=== PATIENT | male | born 1950 | race Caucasian/White ===

== ENCOUNTER → 2019-09-15 | Outpatient (REF) | LOC: M LAB LCGH 11:30 | PROVIDERS: ATTEND Physician Assistant | DX: L57.0 Actinic keratosis (principal) ==

== ENCOUNTER → 2021-02-26 | Outpatient (CLI) | payer BC ==
[~2021-02-26] MED LIST: ALBU1.25 NEB; ALLO10TA PO; AMLO1TAB37 PO; ATOR1TAB21 PO; CLEO300C2 PEG; ELIQ5TAB PO; FAMO20TA PO; FOLI400T13 PO; GUAI400T9 PEG; HUMA50IN3 SC; LEVE1INJ5 SC; MUCI600T31 PEG; OCUVCAP PO; OSTE1TAB2 PO; SOTA120T31 PO; TORS20TA2 PO
== END ==
LOC: M ONCR 14:43
PROVIDERS: ATTEND General Practice
DX: C32.1 Malignant neoplasm of supraglottis (principal)

== ENCOUNTER → 2021-02-26 | Outpatient (CLI) | payer BC, MEDICARE ==
[~2021-02-26] MED LIST changes: +ALBU83IN INH; +ALLO10TA GT; +AMLO1TAB24 GT; +ATOR1TAB21 GT; -ATOR1TAB21 PO; +ELIQ5TAB GT; -ELIQ5TAB PO; +FAMO20TA GT; -FAMO20TA PO; +FOLI1TAB11 GT; +FOLI1TAB11 PO; +HUMA100I5 SC; +NYST10OI TOP; +REPA1TAB6 PO; +SOTA120T31 GT; -SOTA120T31 PO; +TORS20TA2 GT; -TORS20TA2 PO
[2021-02-26 15:23] LABS: BASO # 0.1 10^3/uL (0.0-0.2); BASO % 0.7 % (0.0-1.0); EOS # 0.6 10^3/uL (0.0-0.5); EOS % 4.3 % (0.0-3.0); HEMATOCRIT 37.1 % (42.0-52.0); HEMOGLOBIN 12.1 g/dl (13.5-17.5); LYMPH # 1.3 10^3/uL (1.5-5.0); LYMPH % 9.3 % (24.0-44.0); MEAN CORPUSCULAR HEMOGLOBIN 33.9 pg (27.0-33.0); MEAN CORPUSCULAR HGB CONC 32.6 g/dl (32.0-36.5); MEAN CORPUSCULAR VOLUME 103.9 fl (80.0-96.0); MONO % 7.6 % (2.0-8.0); NEUTROPHILS # 10.5 10^3/uL (1.5-8.5); NEUTROPHILS % 77.3 % (36.0-66.0); PLATELET COUNT, AUTOMATED 326 10^3/uL (150-450); RED BLOOD COUNT 3.57 10^6/uL (4.30-6.10); WHITE BLOOD COUNT 13.6 10^3/uL (4.0-10.0)
[2021-02-26 16:15] LABS: ALBUMIN 3.4 GM/DL (3.2-5.2); BILIRUBIN,TOTAL 0.3 MG/DL (0.2-1.0); CREATININE FOR GFR 2.61 MG/DL (0.70-1.30); FREE T4 0.83 NG/DL (0.76-1.46); GLOMERULAR FILTRATION RATE 25.9 (>42); POTASSIUM SERUM 4.6 MEQ/L (3.5-5.1); THYROID STIMULATING HORMONE 4.45 uIU/ML (0.358-3.740); TOTAL PROTEIN 7.5 GM/DL (6.4-8.2)
== END ==
LOC: M ONCR 12:44
PROVIDERS: ATTEND General Practice
DX: C32.1 Malignant neoplasm of supraglottis (principal); E11.22 Type 2 diabetes mellitus with diabetic chronic kidney disease; E78.5 Hyperlipidemia, unspecified; I12.9 Hypertensive chronic kidney disease with stage 1 through stage 4 chronic kidney disease, or unspecified chronic kidney disease; M10.9 Gout, unspecified; N18.9 Chronic kidney disease, unspecified; Z79.4 Long term (current) use of insulin; Z79.899 Other long term (current) drug therapy; Z80.3 Family history of malignant neoplasm of breast; Z85.118 Personal history of other malignant neoplasm of bronchus and lung; Z87.891 Personal history of nicotine dependence; Z88.0 Allergy status to penicillin; Z88.2 Allergy status to sulfonamides; Z93.1 Gastrostomy status
CPT/HCPCS: 31575; 36415; 80053; 84439; 84443; 85025; 87070; 87077; 87186; 87205; G0463

== ENCOUNTER 2021-03-08 13:54 | Outpatient (RCR) | payer MEDICARE ==
--- NOTE | 2021-03-05 14:06 | RADENCPD ---
Date/Time of Encounter Date of Encounter: Mar 05, 2021 Time of Encounter: 14:05 Encounter Received finalized culture report positive for CRE. Will refer to ID for treatment recommendations. In the meantime he should continue clindamycin for the MSSA as prescribed for his tracheitis/bronchitis. ABDI ARENAS MD Mar 05, 2021 14:06
[~2021-03-08 13:54] MED LIST changes: -ALBU83IN INH; -AMLO1TAB24 GT; -FOLI1TAB11 GT; -FOLI1TAB11 PO; -HUMA100I5 SC; -NYST10OI TOP; -REPA1TAB6 PO
[2021-03-20] MEDS ORDERED: NYST10OI TOP (11:13)
[2021-03-20] MEDS ORDERED: LEVE1INJ5 SC (11:13)
[2021-03-20] MEDS ORDERED: HUMA100I5 SC (11:19)
[2021-03-20] MEDS ORDERED: REPA1TAB6 PO (14:14)
[2021-03-20] MEDS ORDERED: AMLO1TAB24 GT (14:14)
[2021-03-20] MEDS ORDERED: FOLI1TAB11 PO (14:14)
[2021-03-20] MEDS ORDERED: FOLI1TAB11 GT (14:14)
[2021-03-20] MEDS ORDERED: ALBU83IN INH (15:26)
== END 2021-03-30 ==
LOC: M ONCR 13:54 → EEVIPCON 14:00
PROVIDERS: ATTEND General Practice
DX: C32.8 Malignant neoplasm of overlapping sites of larynx (principal)

== ENCOUNTER → 2021-03-18 | Outpatient (REF) | payer MEDICARE ==
[~2021-03-18] MED LIST changes: +ALBU83IN INH; +AMLO1TAB24 GT; +FOLI1TAB11 GT; +FOLI1TAB11 PO; +HUMA100I5 SC; +NYST10OI TOP; +REPA1TAB6 PO
== END ==
LOC: M SFHCPLAZ 17:24
PROVIDERS: ATTEND Internal Medicine Infectious Disease
DX: K94.29 Other complications of gastrostomy (principal)

== ENCOUNTER 2021-03-20 10:42 | Inpatient (IN) | payer MEDICARE ==
[~2021-03-20] VITALS: Ht 167.6 cm; Wt 130.7 kg
[~2021-03-20 10:42] MED LIST changes: -ALBU83IN INH; -AMLO1TAB24 GT; -FOLI1TAB11 GT; -FOLI1TAB11 PO; -HUMA100I5 SC; -NYST10OI TOP; -REPA1TAB6 PO
[2021-03-20] MEDS ORDERED: NYST10OI TOP (11:13)
[2021-03-20] MEDS ORDERED: LEVE1INJ5 SC (11:13)
[2021-03-20] MEDS ORDERED: HUMA100I5 SC (11:19)
[2021-03-20 12:16] LABS: BASO # 0.1 10^3/uL (0.0-0.2); BASO % 0.3 % (0.0-1.0); EOS # 0.2 10^3/uL (0.0-0.5); EOS % 1.1 % (0.0-3.0); HEMATOCRIT 35.5 % (42.0-52.0); HEMOGLOBIN 12.2 g/dl (13.5-17.5); LYMPH # 0.7 10^3/uL (1.5-5.0); LYMPH % 3.7 % (24.0-44.0); MEAN CORPUSCULAR HEMOGLOBIN 34.3 pg (27.0-33.0); MEAN CORPUSCULAR HGB CONC 34.4 g/dl (32.0-36.5); MEAN CORPUSCULAR VOLUME 99.7 fl (80.0-96.0); MONO % 8.1 % (2.0-8.0); NEUTROPHILS # 15.9 10^3/uL (1.5-8.5); NEUTROPHILS % 85.8 % (36.0-66.0); PLATELET COUNT, AUTOMATED 306 10^3/uL (150-450); RED BLOOD COUNT 3.56 10^6/uL (4.30-6.10)
[2021-03-20 12:38] LABS: CALCIUM LEVEL 9.5 MG/DL (8.8-10.2); CREATININE FOR GFR 2.47 MG/DL (0.70-1.30); GLOMERULAR FILTRATION RATE 27.6 (>42); POTASSIUM SERUM 4.9 MEQ/L (3.5-5.1)
[2021-03-20 12:48] LABS: WHITE BLOOD COUNT 18.6 10^3/uL (4.0-10.0)
[2021-03-20 12:49] LABS: MONO # 1.5 10^3/uL (0.0-0.8)
[2021-03-20] MEDS ORDERED: NS 1,000 ML IV ONE (13:30)
[2021-03-20] MEDS ORDERED: AMLO1TAB24 GT (14:14)
[2021-03-20] MEDS ORDERED: FOLI1TAB11 GT (14:14)
[2021-03-20] MEDS ORDERED: FOLI1TAB11 PO (14:14)
[2021-03-20] MEDS ORDERED: REPA1TAB6 PO (14:14)
[2021-03-20] MEDS ORDERED: MOM 30ML SUSPENSION UDC PO PRN (14:20)
[2021-03-20] MEDS ORDERED: MAALOX 30 ML SUSP *UDC PO PRN (14:20)
[2021-03-20 14:51] LABS: CREATININE,RANDOM URINE 24.3 MG/DL
--- NOTE | 2021-03-20 15:07 | REP ---
INDICATION: MARK on CKD. COMPARISON: Comparison is made with images from PET-CT study dated April 05, 2020.. TECHNIQUE: Urinary tract sonography. FINDINGS: Scanning at the level of the urinary bladder shows no abnormality. Renal cortical echogenicity pattern is normal bilaterally and contours are smooth. There is no evidence of hydronephrosis, cyst, mass, or calculus in either kidney. The right kidney measures 10.9 x 6.1 x 6.2 cm. Left renal dimensions are 10.1 x 6.2 x 5.6 cm. IMPRESSION: Normal urinary tract sonography. <Electronically signed by Chin Ann > 03/20/21 0428
[2021-03-20] MEDS ORDERED: ALBU83IN INH (15:26)
[2021-03-20] MEDS ORDERED: HOME MED LIST COMPLETE! XX SCH (15:30)
[2021-03-20 15:34] LABS: RSV AMPLIFICATION NEGATIVE (NEGATIVE)
[2021-03-20] MEDS ORDERED: VANCOMYCIN INTERMITTENT/PULSE DOSING BY CLINICAL PHARMACIST PER DOSING PROTOCOL XX SCH (15:35)
[2021-03-20] MEDS ORDERED: GLUCAGON INJ 1MG VIAL SC PRN (16:00)
[2021-03-20] MEDS ORDERED: GLUCOSE 4GM CHEW TABLET PO PRN (16:00)
[2021-03-20] MEDS ORDERED: DEXTROSE 50% 50 ML SYRINGE IV PRN (16:00)
[2021-03-20] MEDS ORDERED: VANCOMYCIN HCL 1,000 MG, VIAL MATE ADAPTER 1 EACH in NS 250 ML IV ONE ×2 (16:00→19:00)
--- NOTE | 2021-03-20 16:40 | HPEPDOC ---
[facility] Medical History & Physical Date of Admission Mar 20, 2021 Date of Service: Mar 20, 2021 Attending Physician: SHANELLE COTTON DO History and Physical CHIEF COMPLAINT: Throat infection HISTORY OF PRESENT ILLNESS: Patient is a 70-year-old male who presents today to the hospital with a chief complaint of a throat infection. Patient was seen by his infectious disease provider who wanted to start long-term antibiotics. 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 Patient had a complicated history at the hospital where the laryngectomy was performed and stayed there for about a month with delayed wound healing. Patient has been seeing infectious disease for the infection around the trach. Patient has been complaining of little bit of difficulty breathing and feeling weak over the past few days. Patient was sent in today by the home care nurses as he had a low-grade fever (temperature of 99.4) and need for IV antibiotics. Patient was found to be hyponatremic and in acute renal failure with an elevation of his creatinine compared to his baseline. Patient denies having any decrease of urine output and says has been taking in his normal amount of fluid. Patient has not had any fevers except for the low-grade fevers mentioned earlier. Patient is otherwise feeling well. PAST MEDICAL HISTORY: 1. Chronic kidney disease stage III. 2. Type 2 diabetes mellitus on insulin. 3. Gout. 4. Hypertension 5. Hyperlipidemia 6. Non-small cell lung carcinoma in the right upper lobe in remission PAST SURGICAL HISTORY: 1. PEG tube placement. 2. Laryngectomy. 3. Cardiac stent. SOCIAL HISTORY: Patient lives at home with his . He is a former smoker and smoked but [id number] history. Patient denies alcohol or other drug use. FAMILY HISTORY: Patient states his father had Parkinson's disease ALLERGIES: Please see below. REVIEW OF SYSTEMS: General: Patient reports low-grade fevers HEENT: Patient denies headaches Cardiovascular: Patient denies chest pain Respiratory: Patient reports shortness of breath, cough GI: Patient denies abdominal pain, nausea, vomiting, diarrhea : Patient denies increased frequency or pain with urination Extremities: Patient denies swelling or pain in extremities Neurological: Patient denies numbness or tingling in legs Skin: Patient reports infection around his trach but no other rashes Hematologic: Patient denies any easy bruising. Lymphatic: Patient denies any lumps lumps or bumps in neck, axilla, or groin HOME MEDICATIONS: Please see below. PHYSICAL EXAMINATION: VITAL SIGNS: Temperature 98.4, pulse 68, respiratory rate 18, blood pressure 154/76, pulse oximetry 97% on room air. General: Alert and oriented male patient who was sitting in the chair when I walked in the room. Patient just had a trach collar set up. Patient is unable to speak due to his laryngectomy we communicated via pen and paper and yes or no questions. Patient did not appear to be in any acute distress. HEENT: Normocephalic, atraumatic, moist mucous membranes. Neck: Trach collar has been in place. Patient has purulent drainage around the site of the tracheostomy. Cardiac: Regular rate and rhythm, no murmurs, normal S1, normal S2 Pulm: Clear to auscultation bilaterally. No wheezes, rhonchi, rales Abd: Nondistended, nontender to palpation, normal bowel sounds Ext: 1+ pitting edema in the bilateral lower extremities with overlying chronic stasis changes with darkening of the skin and scaling of the skin around the ankles and to the level of the mid lacey Neuro: Patient was able to move all 4 extremities on command and reported equal sensation to light touch in all 4 extremities. Skin: Chronic stasis changes and purulent drainage from tracheostomy site as above. No other rashes or lesions LABORATORY DATA: See below. IMAGING: Renal ultrasound performed on 03/20/2021 was reported to show normal urinary tract sonography MICROBIOLOGY: Please see below. ASSESSMENT: Patient is a 70-year-old male who presented to the emergency department with an infection around his tracheostomy site was found to have acute renal failure and hyponatremia . PLAN: 1. Acute kidney injury on chronic kidney disease stage III. Patient's creatinine on 01/13/2021 was 1.77. Patient's creatinine today was 2.47. Patient received a bolus of 1 L of normal saline in the emergency department. Basic metabolic profile will be rechecked and is pending as of 1635. This may be due to dehydration as the patient may not be taking as much and due to his infection in his throat and recent surgery. Patient's renal ultrasound was negative. Patient's plasma osmolality is elevated. Patient is also on torsemide which he takes at home may be exacerbating the acute kidney injury. Hold all nephrotoxic agents at this time. Patient will need vancomycin for his neck infection. 2. Moderate hyponatremia. Patient's sodium is 125. Patient did have a normal sodium in December 2020 and a sodium of 135 in January 2021. Repeat BMP is pending after the bolus. We will continue to monitor. Patient does not appear to have any symptoms of hyponatremia at this time. We will slowly correct the patient's hyponatremia at this time. 3. Tracheostomy infection. Patient has been seeing infectious disease and has grown MRSA. We will start the patient on vancomycin and consult infectious disease tomorrow. 4. Type [address] the patient on sliding scale insulin and AC at bedtime fingersticks. 5. Hypertension. We will continue to monitor patient blood pressure continues home medications. 6. Hyperlipidemia. Continue the patient's home medications. 7. DVT prophylaxis patient is fully anticoagulated with Eliquis. 8. CODE STATUS: Full code. Disposition: Patient will be admitted to the progressive care unit for close monitoring and I expect the patient to be admitted for greater than 2 midnights. Vital Signs Vital Signs Date Time Temp Pulse Resp B/P (MAP) Pulse Ox O2 Delivery O2 Flow Rate FiO2 03/20/21 15:27 72 17 154/76 (102) 95 Room Air 03/20/21 12:41 98.4 Laboratory Data Labs 24H Laboratory Tests 2 03/20/21 11:33: Immature Granulocyte % (Auto) 1.0, Neutrophils (%) (Auto) 85.8H, Lymphocytes (%) (Auto) 3.7L, Monocytes (%) (Auto) 8.1H, Eosinophils (%) (Auto) 1.1, Basophils (%) (Auto) 0.3, Neutrophils # (Auto) 15.9H, Lymphocytes # (Auto) 0.7L, Monocytes # (Auto) 1.5H, Eosinophils # (Auto) 0.2, Basophils # (Auto) 0.1, Nucleated Red Blood Cells % (auto) 0.0, Anion Gap 12, Glomerular Filtration Rate 27.6L, Calcium Level 9.5 03/20/21 12:01: Osmolality 317H 03/20/21 12:02: Lactic Acid Level 1.4 03/20/21 13:51: Urine Color YELLOW, Urine Appearance CLOUDYH, Urine pH 5.0, Urine Specific [place] 1.008, Urine Protein 1+H, Urine Glucose (UA) NEGATIVE, Urine Ketones NEGATIVE, Urine Blood NEGATIVE, Urine Nitrite NEGATIVE, Urine Bilirubin NEGATIVE, Urine Urobilinogen 0.2, Urine Leukocyte Esterase 3+H, Urine WBC (Auto) TNTCH, Urine RBC (Auto) 8H, Urine Hyaline Casts (Auto) 0, Urine Bacteria (Auto) NEGATIVE, Urine Squamous Epithelial Cells 0, Urine Yeast-Like Cells (Auto) LARGEH, Urine Sperm (Auto) 03/20/21 14:01: Urine Osmolality 268, Urine Random Creatinine 24.3, Urine Random Sodium 19 03/20/21 14:07: Coronavirus (COVID-19)(PCR) NEGATIVE, Influenza Type A (RT-PCR) NEGATIVE, Influenza Type B (RT-PCR) NEGATIVE, Respiratory Syncytial Virus (PCR) NEGATIVE CBC/BMP Laboratory Tests 03/20/21 11:33 Microbiology Microbiology 03/20/21 Blood Culture, Received Pending 03/20/21 Urine Culture, Received Pending 03/20/21 Blood Culture, Received Pending Home Medications Scheduled Allopurinol (Allopurinol) 100 Mg Tablet, 200 MG GT DAILY Amlodipine Besylate (Amlodipine Besylate) 5 Mg Tablet, 5 MG GT DAILY Apixaban (Eliquis) 5 Mg Tablet, 5 MG GT DAILY Atorvastatin Calcium (Atorvastatin Calcium) 20 Mg Tablet, 20 MG GT DAILY Famotidine (Famotidine) 20 Mg Tablet, 20 MG GT BID Folic Acid (Folic Acid) 1 Mg Tablet, 1 MG GT DAILY Insulin Detemir (Levemir Flextouch) 100 Unit/1 Ml Insuln.pen, 30 UNIT SC DAILY Insulin Lispro (Humalog Kwikpen U-100) 100 Unit/1 Ml Insuln.pen, 1 DOSE SC AC PER SLIDING SCALE Nystatin (Nystatin) 15 Gm Oint...g., 1 APLCT TOP QID APPLY TO FOLDS Sotalol HCl (Sotalol) 120 Mg Tablet, 120 MG GT BID Torsemide (Torsemide) 20 Mg Tablet, 20 MG GT BID Scheduled PRN Albuterol Sulf (Albuterol Sulfate) 2.5 Mg/3 Ml Vial.neb, 2.5 MG INH Q6H PRN for SOB/WHEEZING Allergies Coded Allergies: Penicillins (Verified Allergy, Severe, 02/26/21) Sulfa (Sulfonamide Antibiotics) (Verified Allergy, Mild, 02/26/21) Itching A-FIB/CHADSVASC A-FIB History Current/History of A-Fib/PAF?: No Current PO Anticoag Therapy: Yes SHANELLE COTTON DO Mar 20, 2021 16:40
[2021-03-20 16:54] LABS: CALCIUM LEVEL 9.6 MG/DL (8.8-10.2); CREATININE FOR GFR 2.35 MG/DL (0.70-1.30); GLOMERULAR FILTRATION RATE 29.3 (>42); POTASSIUM SERUM 4.7 MEQ/L (3.5-5.1)
[2021-03-20] MEDS: HumaLOG INSULIN (NovoLOG) PER UNIT SC SCH ×2 (18:48→22:07)
[2021-03-20] MEDS: ALBUTEROL SULFATE 2.5 MG/0.5 ML INH NEB SOLN INH PRN (21:56)
[2021-03-20] MEDS: FAMOTIDINE 20 MG TAB GT SCH (22:06)
[2021-03-20] MEDS: NYSTATIN OINTMENT 15 GM TOP SCH (22:07)
[2021-03-21 00:10] LABS: CALCIUM LEVEL 9.4 MG/DL (8.8-10.2); CREATININE FOR GFR 2.3 MG/DL (0.70-1.30); POTASSIUM SERUM 4.6 MEQ/L (3.5-5.1)
[2021-03-21 01:19] VITALS: BP 132/88
[2021-03-21 04:27] VITALS: BP 138/78
[2021-03-21 05:48] LABS: HEMATOCRIT 34.2 % (42.0-52.0); HEMOGLOBIN 11.5 g/dl (13.5-17.5); MEAN CORPUSCULAR HEMOGLOBIN 33.7 pg (27.0-33.0); MEAN CORPUSCULAR HGB CONC 33.6 g/dl (32.0-36.5); MEAN CORPUSCULAR VOLUME 100.3 fl (80.0-96.0); PLATELET COUNT, AUTOMATED 321 10^3/uL (150-450); RED BLOOD COUNT 3.41 10^6/uL (4.30-6.10); WHITE BLOOD COUNT 17.8 10^3/uL (4.0-10.0)
[2021-03-21 06:17] LABS: CALCIUM LEVEL 8.9 MG/DL (8.8-10.2); CREATININE FOR GFR 2.28 MG/DL (0.70-1.30); GLOMERULAR FILTRATION RATE 30.3 (>42); MAGNESIUM LEVEL 2.9 MG/DL (1.8-2.4); POTASSIUM SERUM 4.8 MEQ/L (3.5-5.1); PREALBUMIN 12.8 MG/DL (20.0-40.0)
[2021-03-21 08:00] VITALS: BP 136/93
[2021-03-21] MEDS: NYSTATIN OINTMENT 15 GM TOP SCH ×4 (09:00→21:00)
[2021-03-21] MEDS: allopurinoL 100 MG TAB GT SCH (10:00)
[2021-03-21] MEDS: APIXABAN 5 MG TAB (ELIQUIS) GT SCH (10:01)
[2021-03-21] MEDS: FOLIC ACID 1 MG TAB GT SCH (10:01)
[2021-03-21] MEDS: ATORVASTATIN 20 MG TAB GT SCH (10:01)
[2021-03-21] MEDS: FAMOTIDINE 20 MG TAB GT SCH ×2 (10:02→20:59)
[2021-03-21] MEDS: amLODIPine 5 MG TAB GT SCH (10:02)
[2021-03-21] MEDS: HumaLOG INSULIN (NovoLOG) PER UNIT SC SCH ×4 (10:03→20:58)
[2021-03-21 10:50] LABS: CALCIUM LEVEL 9.8 MG/DL (8.8-10.2); CREATININE FOR GFR 2.28 MG/DL (0.70-1.30); GLOMERULAR FILTRATION RATE 30.3 (>42); POTASSIUM SERUM 4.7 MEQ/L (3.5-5.1); VANCOMYCIN RANDOM 13.3 UG/ML
[2021-03-21 11:18] LABS: CORTISOL AM 40.2 UG/DL (4.3-22.4)
[2021-03-21 12:00] VITALS: BP 110/56
[2021-03-21] MEDS ORDERED: VANCOMYCIN HCL 1,000 MG, VIAL MATE ADAPTER 1 EACH in NS 250 ML IV SCH (12:00)
--- NOTE | 2021-03-21 12:33 | IPNPDOC ---
Text Note Date of Service The patient was seen on 03/21/21. NOTE Subjective: Patient is a 70-year-old male who presented yesterday to the hosp [facility] with chief complaint of throat infection. Patient says he is doing well but he has had some mucus plugging in the trach. Patient has been able to perform his own trach care. Patient is doing otherwise well at this time. Patient denies having any complaints. Review of systems: General: Patient denies fevers HEENT: Patient denies headaches Cardiovascular: Patient denies chest pain Respiratory: Patient denies shortness of breath, cough GI: Patient denies abdominal pain, nausea, vomiting, diarrhea : Patient denies increased frequency or pain with urination Extremities: Patient denies swelling or pain in extremities Neurological: Patient denies numbness or tingling in legs Physical exam: Vitals: See below General: Alert and oriented male patient who was sitting in the chair when I walked in. Patient is unable to speak due to recent laryngectomy but is able to communicate via pen and paper. Patient did not appear to be in any acute distress. HEENT: Normocephalic, atraumatic, moist mucous membranes. Neck: Trach collar in place with some redness surrounding the area. No purulent drainage at this time. Cardiac: Regular rate and rhythm, no murmurs, normal S1, normal S2 Pulm: Clear to auscultation bilaterally. No wheezes, rhonchi, rales Abd: Nondistended, nontender to palpation, normal bowel sounds Ext: 1+ pitting edema the bilateral lower extremities overlying chronic stasis changes with darkening of the skin and scaling of the skin around the ankles at the level of the mid lacey. Labs: See below Imaging: No new imaging has been performed Assessment/plan: 70-year-old male presented to the emergency department with infection around his tracheostomy site was found to have acute kidney injury and hyponatremia 1. Acute kidney injury on chronic kidney disease stage III. Patient's creatinine has improved and we will continue to add free water to the patient's tube feedings. Patient's kidney doctors have told the to increase the free water in order to keep the patient hydrated. In review of the records, patient's creatinine was 2.6 at the end of January which may represent worsening of his chronic kidney disease versus a true acute kidney injury. Because of this we will not be doing IV fluids as we also do not want to overcorrect his moderate hyponatremia which is asymptomatic at this time. 2. Moderate hyponatremia, asymptomatic. Patient sodium is 125. I have spoken with dietary and his adjusted tube feeding will be giving him more sodium which his prior tube feedings at home was not. This may be the reason why the patient is hyponatremic as he was getting increased free water with a lower content of sodium in the tube feeds. We will continue to monitor the patient's sodium level. 3. Tracheostomy infection. Patient has been seeing infectious disease and has grown MRSA. Patient is on vancomycin. Infectious disease consult was placed today. 4. Type 2 diabetes mellitus. We will continue to monitor with sliding scale insulin. 5. Hypertension. Continue monitor patient blood pressure continue home medications. 6. Hyperlipidemia. Continue patient's home medications. DVT Prophylaxis: Full anticoagulate with Eliquis Disposition: Pending infectious disease consultation. VS,Fishbone, I+O VS, Fishbone, I+O Laboratory Tests 03/20/21 16:17 03/20/21 23:35 03/21/21 05:25 03/21/21 10:04 Vital Signs Date Time Temp Pulse Resp B/P (MAP) Pulse Ox O2 Delivery O2 Flow Rate FiO2 03/21/21 12:00 97.2 65 22 110/56 (74) 99 Trach Collar 10.0 03/21/21 01:06 40 I&O- Last 24 Hours up to 6 AM 03/21/21 06:00 Intake Total 1540 ml Balance 1540 ml SHANELLE COTTON DO Mar 21, 2021 12:32
[2021-03-21] MEDS: NYSTATIN 500,000 U/5 ML SUSP UDC SSP SCH ×2 (13:36→18:00)
[2021-03-21] MEDS: ALBUTEROL SULFATE 2.5 MG/0.5 ML INH NEB SOLN INH PRN ×2 (13:57→19:41)
[2021-03-21] MEDS: FLUTICASONE PROP 0.05% NASAL SPRAY 16 GM (FLONASE) NARES SCH ×2 (17:26→21:00)
--- NOTE | 2021-03-21 19:02 | REP ---
INDICATION: dyspnea. COMPARISON: Outside CT 09/20/2020. TECHNIQUE: PA and lateral chest. FINDINGS: There is now a tracheostomy tube well seated in the proximal trachea with a clip in the neck. Lung young are well inflated. There are coarsened interstitial markings and changes of COPD with some patchy infiltrate or atelectasis just above the right diaphragm. Retrocardiac left lower lobe atelectasis or infiltrate medially. Small effusions are present bilaterally. There is no dolly edema. Pulmonary arteries are prominent centrally, consistent with pulmonary artery hypertension, likely on the basis of COPD. No compression deformity in the spine. Aorta is mildly calcified at the arch and tortuous without gross aneurysm. Unchanged from CT. No widening of the mediastinum. No acute compression deformity in the spine. IMPRESSION: 1. COPD with some bibasilar patchy infiltrates atelectasis, above the diaphragm on the right and medially in the retrocardiac zone on the left. Bilateral effusions noted. 2. No gross cardiomegaly or dolly edema. Prominence of pulmonary arteries centrally suggest pulmonary artery hypertension, likely on the basis of COPD. 3. New tracheostomy tube since the previous CT in August. <Electronically signed by Beny Joe > 03/21/21 [id number]
--- NOTE | 2021-03-21 21:03 | CR ---
CONSULTATION DATE: 03/21/2021 REASON FOR CONSULTATION: I was asked to consult by Dr. Silviano Sheriff for evaluation of MRSA infection with positive culture in the sputum and in the G-tube. HISTORY OF PRESENT ILLNESS: Mr. Carcamo is a 70-year-old gentleman with a history of tobacco abuse and recent diagnosis of supraglottic laryngeal cancer, squamous cell carcinoma, status post laryngectomy and partial pharyngectomy, done by Dr. Ayala on 12/04/20 in [facility]. The patient had a course complicated by a long hospitalization, respiratory failure. He was intubated for four days. The patient was seen by Dr. Boris Pritchett for consideration of adjuvant radiation therapy. The patient saw me in the office less than a week ago for evaluation of carbapenem-resistant Enterobacteriaceae in his sputum culture and MSSA. The MSSA was treated by Dr. Pritchett with ten days of clindamycin. He was also having some drainage around his G-tube and thick secretions from his trach. The patient was admitted to the hospital a couple days later with low grade fever, 99.4 and difficulty with shortness of breath. The secretions have been thick. He had no urinary symptoms or decreased urine output. No nausea, vomiting or diarrhea. The patient is fed through a G-tube. PAST MEDICAL HISTORY: 1. Chronic kidney disease stage 3. 2. Type 2 diabetes on insulin. 3. Gout. 4. Hypertension. 5. Hyperlipidemia. 6. History of lung CA, right upper lobe in remission and pharyngeal cancer, status post laryngectomy and squamous cell carcinoma, [id number]. PAST SURGICAL HISTORY: 1. G-tube placement for feeding. 2. Laryngectomy with partial pharyngectomy and cardiac stenting. SOCIAL HISTORY: He lives at home with his . He is a former smoker. He smokes 100 pack early. Denies alcohol or drug abuse. FAMILY HISTORY: Parkinson's in his father. REVIEW OF SYSTEMS: He complains of shortness of breath, cough with secretions. Denies abdominal pain, nausea, vomiting, diarrhea. No frequency, dysuria or hematuria. He does have lower extremity edema. PHYSICAL EXAMINATION: General: He is a sick-looking gentleman, obese, in no acute distress. Vital Signs: Temperature is 96.3, pulse 71, respirations 18, O2 sat 96% on ten liters trach collar. Heart: Normal S1, S2, no murmurs, rubs or gallops. Lungs: Stridor around the tracheal area with rhonchorous secretion sound. Decreased breath sounds at the bases, no crackles or wheezes. Abdomen: Markedly obese, soft, nontender. G-tube in the left lower quadrant with erythema and mild purulence around the tube but no surrounding cellulitis. Extremities: Hyperpigmented venous type changes, +1 pitting edema. No clubbing or cyanosis. HEENT: Oropharynx is clear, no lesions. Neck: Supple, no JVD. Neurologic: Alert and oriented x3. Patient is able to talk through whispering and writes appropriately whenever he needs to communicate. Neurologic exam: Normal upper and lower extremity strength, within normal. Patient sitting in a chair. LABORATORY DATA: White count yesterday was 18.6, today 17.8, hemoglobin 11.5, hematocrit 34.2, platelets 321. Sodium 127, potassium 4.7, chloride 93, bicarb 26, BUN 134, creatinine 2.38, glucose 235, calcium 9.8, magnesium 2.9, albumin 12.8, a.m. cortisol 40.2. SARS-CoV-2 negative. RSV, influenza A and B negative. Sputum culture was not done but culture from the office was MRSA. Blood cultures, two sets were negative and urine culture was negative. G-tube was also positive for MRSA. Chest x-ray showed bibasilar patchy infiltrates versus atelectasis, no gross cardiomegaly or dolly edema. Prominence of pulmonary artery suggests pulmonary artery hypertension. Renal ultrasound: Normal urinary tract sonography. IMPRESSION: This is a 70-year-old gentleman with a history of laryngeal cancer, status post laryngectomy and partial pharyngectomy, admitted for low grade fever, difficulty breathing, MRSA, tracheobronchitis, possibly early pneumonia and MRSA isolated around the G-tube although that is not symptomatic. The patient was started on IV vancomycin with improvement in his symptoms although he still complains of significant shortness of breath. I ordered a chest x-ray this afternoon which showed possibly infiltrate versus atelectasis. PLAN: Chest x-ray, PA and lateral was ordered and reviewed. Continue with IV vancomycin for MRSA, tracheobronchitis/pneumonia. Treat for 7-10 days. Once the patient is ready for discharge, he could be switched to Linezolid 600 mg p.o. b.i.d. to finish course. Consult nephrology regarding renal failure with elevated BUN and creatinine. Also consult ENT regarding his trach. Patient seems to have significant stridor and concerns about shortness of breath. MTDD
[2021-03-21 23:03] VITALS: BP 113/48
[2021-03-22] MEDS: ALBUTEROL SULFATE 2.5 MG/0.5 ML INH NEB SOLN INH PRN (01:59)
[2021-03-22 05:30] LABS: HEMATOCRIT 36.1 % (42.0-52.0); MEAN CORPUSCULAR HEMOGLOBIN 33.2 pg (27.0-33.0); MEAN CORPUSCULAR HGB CONC 33.2 g/dl (32.0-36.5); RED BLOOD COUNT 3.61 10^6/uL (4.30-6.10); WHITE BLOOD COUNT 23.9 10^3/uL (4.0-10.0)
[2021-03-22] MEDS: NYSTATIN 500,000 U/5 ML SUSP UDC SSP SCH ×4 (05:30→17:44)
[2021-03-22 05:31] LABS: PLATELET COUNT, AUTOMATED 371 10^3/uL (150-450)
[2021-03-22 05:52] LABS: CALCIUM LEVEL 10.2 MG/DL (8.8-10.2); CREATININE FOR GFR 2.2 MG/DL (0.70-1.30); GLOMERULAR FILTRATION RATE 31.6 (>42); MAGNESIUM LEVEL 3.2 MG/DL (1.8-2.4); POTASSIUM SERUM 4.3 MEQ/L (3.5-5.1)
[2021-03-22 08:00] VITALS: BP 122/70
[2021-03-22] MEDS ORDERED: RAMELTEON 8 MG TAB (ROZEREM) PO PRN (08:45)
[2021-03-22] MEDS: allopurinoL 100 MG TAB GT SCH (10:16)
[2021-03-22] MEDS: FOLIC ACID 1 MG TAB GT SCH (10:17)
[2021-03-22] MEDS: ATORVASTATIN 20 MG TAB GT SCH (10:18)
[2021-03-22] MEDS: APIXABAN 5 MG TAB (ELIQUIS) GT SCH (10:18)
[2021-03-22] MEDS: amLODIPine 5 MG TAB GT SCH (10:19)
[2021-03-22] MEDS: FAMOTIDINE 20 MG TAB GT SCH ×2 (10:19→22:10)
[2021-03-22] MEDS: FLUTICASONE PROP 0.05% NASAL SPRAY 16 GM (FLONASE) NARES SCH ×2 (10:22→22:10)
[2021-03-22] MEDS: NYSTATIN OINTMENT 15 GM TOP SCH ×4 (10:22→22:10)
[2021-03-22 11:13] VITALS: O2SAT 90
[2021-03-22] MEDS: HumaLOG INSULIN (NovoLOG) PER UNIT SC SCH ×2 (12:42→17:46)
[2021-03-22] MEDS ORDERED: CETACAINE SPRAY 5GM TOP ONE (13:00)
--- NOTE | 2021-03-22 14:02 | IPNPDOC ---
Text Note Date of Service The patient was seen on 03/22/21. NOTE Subjective: Patient is a 70-year-old male who presented to the hospital 2 days ago with a chief complaint of throat infection. Patient says he has been having some increased mucus plugging in his trach and has not been feeling well today. Respiratory therapy did have some difficulty maintaining the patient's oxygenation had increased his trach collar oxygenation. I did speak with Dr. Fam of ENT who will see the patient and see if the patient is having difficulty with his trach. Patient otherwise had some difficulty sleeping last night but is feeling better. Patient denies any pain in his throat. Review of systems: General: Patient denies fevers HEENT: Patient denies headaches Cardiovascular: Patient denies chest pain Respiratory: Patient denies shortness of breath, cough GI: Patient denies abdominal pain, nausea, vomiting, diarrhea : Patient denies increased frequency or pain with urination Extremities: Patient denies swelling or pain in extremities Neurological: Patient denies numbness or tingling in legs Physical exam: Vitals: See below General: Alert and oriented male patient who was sitting in the chair and walked in. Patient is unable to speak due to recent laryngectomy but is able to communicate via pen and paper. Patient not appear to be in any acute distress. HEENT: Normocephalic, atraumatic, moist mucous membranes. Neck: Trach collar in place with some redness surrounding the trach. No purulent drainage at this time Cardiac: Regular rate and rhythm, no murmurs, normal S1, normal S2 Pulm: Clear to auscultation bilaterally. No wheezes, rhonchi, rales Abd: Nondistended, nontender to palpation, normal bowel sounds Ext: 1+ pitting edema in the bilateral lower extremities overlying chronic stasis changes with darkening of the skin and scaling of the skin around the ankles up to the level of the mid lacey Labs: See below Imaging: Chest x-ray performed on 03/21/2021 was reported to show COPD with some bibasilar patchy infiltrates atelectasis, above the diaphragm in the right and medial in the retrocardiac zone on the left. Bilateral effusions noted. No gross cardiomegaly or dolly edema. Prominence of the pulmonary arteries centrally suggest pulmonary artery hypertension, likely on the basis of COPD. New tracheostomy tube since the previous CT in August Assessment/plan: 70-year-old male presents emerged part with infection around his tracheostomy site was found to have acute kidney injury and hyponatremia. Patient had a possible mucous plugging of his tracheostomy today. 1. Acute kidney injury on chronic kidney disease stage III. Patient's creatinine continues to improve as we add free water to the patient's tube feedings. We will continue to monitor the patient's creatinine as he is in the hospital. 2. Moderate hyponatremia, asymptomatic. Patient's most recent sodium is 128. Patient sodium intake through his tube feedings has been increased based on the new feeding recommendations given to us by dietary. I appreciate dietary's help in treating the patient. 3. Tracheostomy infection. Patient has been seeing infectious disease and has grown MRSA. We will switch the patient to Zyvox prior to discharge. 4. Mucous plugging of tracheostomy. ENT was consulted today who did scope the trach and said that there was a large mucous plug at the end of the trach. Respiratory therapy work the patient to attempt to break this up. We will continue to monitor the patient. 5. Type 2 diabetes mellitus. We continue to monitor with sliding scale insulin coverage. 6. Hypertension. Continue to monitor the patient's blood pressure and continues on medication. 7. Hyperlipidemia. Continue patient's on medications. 8. Paroxysmal atrial fibrillation. Patient states that he was placed on Eliquis for years ago for paroxysmal atrial fibrillation. Patient did have atrial fibrillation on the monitor today. DVT Prophylaxis: Full anticoagulation with Eliquis Disposition: Pending improvement in respiratory status VS,Nick, I+O VS, Nick, I+O Laboratory Tests 03/22/21 05:11 Vital Signs Date Time Temp Pulse Resp B/P (MAP) Pulse Ox O2 Delivery O2 Flow Rate FiO2 03/22/21 11:13 90 Trach Collar 10.0 60 03/22/21 10:19 92 122/70 03/22/21 08:00 96.7 21 I&O- Last 24 Hours up to 6 AM 03/22/21 06:00 Intake Total 1250 ml Output Total 1875 ml Balance -625 ml SHANELLE COTTON DO Mar 22, 2021 14:02
[2021-03-22 17:46] VITALS: BP_SYST 98
[2021-03-22 20:01] VITALS: BP 120/65
[2021-03-23] VITALS (7 sets, daily range): BP systolic 113–146; BP diastolic 59–68; O2SAT 95
[2021-03-23] MEDS: HumaLOG INSULIN (NovoLOG) PER UNIT SC SCH ×4 (00:06→18:14)
[2021-03-23] MEDS: NYSTATIN 500,000 U/5 ML SUSP UDC SSP SCH ×5 (00:07→23:09)
[2021-03-23 05:21] LABS: HEMATOCRIT 35.6 % (42.0-52.0); HEMOGLOBIN 12.1 g/dl (13.5-17.5); MEAN CORPUSCULAR HEMOGLOBIN 33.9 pg (27.0-33.0); MEAN CORPUSCULAR VOLUME 99.7 fl (80.0-96.0); PLATELET COUNT, AUTOMATED 358 10^3/uL (150-450); RED BLOOD COUNT 3.57 10^6/uL (4.30-6.10); WHITE BLOOD COUNT 27.9 10^3/uL (4.0-10.0)
[2021-03-23 05:45] LABS: CALCIUM LEVEL 9.3 MG/DL (8.8-10.2); CREATININE FOR GFR 2.53 MG/DL (0.70-1.30); GLOMERULAR FILTRATION RATE 26.9 (>42); MAGNESIUM LEVEL 3.3 MG/DL (1.8-2.4); POTASSIUM SERUM 4.8 MEQ/L (3.5-5.1); VANCOMYCIN RANDOM 19.2 UG/ML
[2021-03-23] MEDS: ATORVASTATIN 20 MG TAB GT SCH (09:35)
[2021-03-23] MEDS: FOLIC ACID 1 MG TAB GT SCH (09:36)
[2021-03-23] MEDS: allopurinoL 100 MG TAB GT SCH (09:36)
[2021-03-23] MEDS: amLODIPine 5 MG TAB GT SCH (09:38)
[2021-03-23] MEDS: FAMOTIDINE 20 MG TAB GT SCH ×2 (09:38→23:08)
[2021-03-23] MEDS: APIXABAN 5 MG TAB (ELIQUIS) GT SCH (09:38)
[2021-03-23] MEDS: FLUTICASONE PROP 0.05% NASAL SPRAY 16 GM (FLONASE) NARES SCH (09:38)
[2021-03-23] MEDS: NYSTATIN OINTMENT 15 GM TOP SCH ×4 (09:39→23:09)
[2021-03-23] MEDS: LevoFLOXacin IV 750 MG in IV 1 EA IV SCH (09:40)
[2021-03-23] MEDS ORDERED: VANCOMYCIN HCL 500 MG in D5W MINI-BAG PLUS 100 ML IV SCH (12:00)
--- NOTE | 2021-03-23 13:39 | IPNPDOC ---
Text Note Date of Service The patient was seen on 03/23/21. NOTE Subjective: Patient is a 70-year-old male presented to the hospital 3 days ago with a chief complaint of throat infection. Patient is having some increased mucus plugging in his trach and not been feeling well the past few days. Patient had an increase in his white blood cell count over the past few days. This may be secondary to the instrumentation of the patient's trach however, patient has not been responding fully and may have an infiltrate on his x-ray. Due to the patient's feeding tube, patient may be aspirating. Patient appears tired but is otherwise feeling well. Review of systems: General: Patient denies fevers HEENT: Patient denies headaches Cardiovascular: Patient denies chest pain Respiratory: Patient denies shortness of breath, cough GI: Patient denies abdominal pain, nausea, vomiting, diarrhea : Patient denies increased frequency or pain with urination Extremities: Patient reports swelling in extremities Neurological: Patient denies numbness or tingling in legs Physical exam: Vitals: See below General: Alert and oriented male patient who is laying in bed when I walked in. Patient is unable to speak due to recent laryngectomy but is able to communicate be via pen and paper. Patient not appear to be in any acute distress. HEENT: Normocephalic, atraumatic, moist mucous membranes. Neck: Trach collar in place with some redness surrounding the trach. No apparent drainage Cardiac: Regular rate and rhythm, no murmurs, normal S1, normal S2 Pulm: Some rhonchi heard in the upper right lung field. Other lung young clear to auscultation Abd: Nondistended, nontender to palpation, normal bowel sounds, PEG tube in place and does have some purulent drainage surrounding the PEG tube Ext: No edema bilateral lower extremities Labs: See below Imaging: No new imaging has been performed Assessment/plan: 70-year-old male presents to the emergency department with infection around his tracheostomy site was found to have acute kidney injury and hyponatremia. Possible mucous plugging had been resolved yesterday. 1. Acute kidney injury and chronic kidney disease stage III. Patient's kidney function did slightly worsen after getting better. This may be secondary to the patient's elevated vancomycin trough that happened yesterday. We will continue to monitor. 2. Hyponatremia. Patient is hyponatremic continues to improve slowly with the increased tube feeding and increased sodium in the tube feeds. 3. Tracheostomy site infection. Patient is on vancomycin which was held throughout most of the day yesterday because of an elevated vancomycin trough. Patient can be switched to linezolid. 4. PEG site possible infection. Patient has some purulent drainage surrounding the PEG tube site. This was cultured. 5. Leukocytosis. Patient's white blood cell count was 27.9 today which is increased from 23.9 yesterday. Patient was started on Levaquin for gram- negative coverage as the patient does have aspiration risk due to his PEG tube and his tracheostomy site. 6. Mucus plugging of the tracheostomy. ENT was consulted yesterday and we were able to get a large mucous plug at the end of the trach. Patient's respiratory status has improved. 7. Type 2 diabetes mellitus. Patient will have Levemir added as patient's blood sugars been quite elevated. 8. Hypertension. Continue to monitor and continue home medications. 9. Hyperlipidemia. Continue on patient's no medications. 10. Paroxysmal atrial fibrillation. Patient states he was placed on Eliquis 4 years ago for atrial fibrillation. Patient does have A. fib on the monitor. DVT Prophylaxis: Full anticoagulation with Eliquis Disposition: Pending clinical improvement VSNick, I+O VSNick I+O Laboratory Tests 03/23/21 05:09 Vital Signs Date Time Temp Pulse Resp B/P (MAP) Pulse Ox O2 Delivery O2 Flow Rate FiO2 03/23/21 12:00 10.0 60 03/23/21 11:27 97.2 83 22 113/59 (77 96 Trach Collar I&O- Last 24 Hours up to 6 AM 03/23/21 06:00 Intake Total 2500 ml Output Total 600 ml Balance 1900 ml SHANELLE COTTON DO Mar 23, 2021 13:39
[2021-03-23] MEDS ORDERED: APIXABAN 5 MG TAB (ELIQUIS) GT SCH (21:00)
[2021-03-23] MEDS: LEVEMIR (INSULIN DETEMIR) 1 UNITS/0.01ML SC SCH (23:10)
[2021-03-24] VITALS (31 sets, daily range): BP systolic 100–188; BP diastolic 63–99; O2SAT 93
[2021-03-24] MEDS: FLUTICASONE PROP 0.05% NASAL SPRAY 16 GM (FLONASE) NARES SCH ×3 (01:03→22:02)
[2021-03-24] MEDS: HumaLOG INSULIN (NovoLOG) PER UNIT SC SCH ×4 (01:05→18:11)
[2021-03-24] MEDS: NYSTATIN 500,000 U/5 ML SUSP UDC SSP SCH ×3 (06:27→17:28)
[2021-03-24 06:36] LABS: HEMATOCRIT 32.3 % (42.0-52.0); HEMOGLOBIN 10.9 g/dl (13.5-17.5); MEAN CORPUSCULAR HEMOGLOBIN 34.1 pg (27.0-33.0); MEAN CORPUSCULAR HGB CONC 33.7 g/dl (32.0-36.5); MEAN CORPUSCULAR VOLUME 100.9 fl (80.0-96.0); PLATELET COUNT, AUTOMATED 332 10^3/uL (150-450); WHITE BLOOD COUNT 24.7 10^3/uL (4.0-10.0)
[2021-03-24 07:28] LABS: CALCIUM LEVEL 9.5 MG/DL (8.8-10.2); CREATININE FOR GFR 2.4 MG/DL (0.70-1.30); GLOMERULAR FILTRATION RATE 28.6 (>42); MAGNESIUM LEVEL 3.2 MG/DL (1.8-2.4); POTASSIUM SERUM 5.3 MEQ/L (3.5-5.1); VANCOMYCIN RANDOM 23.5 UG/ML
[2021-03-24] MEDS: FAMOTIDINE 20 MG TAB GT SCH ×2 (09:00→22:03)
[2021-03-24] MEDS: ATORVASTATIN 20 MG TAB GT SCH (09:00)
[2021-03-24] MEDS: allopurinoL 100 MG TAB GT SCH (09:00)
[2021-03-24] MEDS: amLODIPine 5 MG TAB GT SCH (09:00)
[2021-03-24] MEDS: FOLIC ACID 1 MG TAB GT SCH (09:00)
[2021-03-24] MEDS: NYSTATIN OINTMENT 15 GM TOP SCH ×4 (09:00→22:02)
--- NOTE | 2021-03-24 09:09 | REP ---
INDICATION: BLOOD COMING FROM TRACH, INCREASED WHEEZING. COMPARISON: Comparison chest x-ray March 21, 2021. Comparison chest CT study September 20, 2020 is also reviewed. TECHNIQUE: Portable upright AP chest radiograph. FINDINGS: Tracheostomy tube is seen in place unchanged. Monitoring electrodes are noted.. There are increased markings in the right lung apex which may be an infiltrate. Increased markings were seen anteriorly in the right apex on chest CT August 2020. Some of this may be fibrosis. However, there is new parenchymal opacity in the right base. Pulmonary vascular cephalization is seen. Heart size is borderline. IMPRESSION: New infiltrate suspected in the right base consistent with pneumonia. Increased markings in the right apex are also noted. Borderline heart size and vascular congestion.. <Electronically signed by Chin Ann > 03/24/21 0970
[2021-03-24] MEDS: METOPROLOL 5 MG/5 ML VIAL IV SCH ×3 (11:33→14:19)
[2021-03-24] MEDS: IPRATROPIUM 0.5MG/ALBUTEROL 2.5MG INH SOL UD 3ML (DUONEB) NEB SCH ×4 (11:40→23:23)
--- NOTE | 2021-03-24 12:10 | CCN ---
CRITICAL CARE NOTE DATE: 03/24/2021 SUBJECTIVE: I was called to the intensive care unit to evaluate this 70-year-old male with hemoptysis admitted on 03/20/2021 with infection at the tracheostomy and gastrostomy (G) tube site. He has been treated with antibiotics. Ears, nose and throat (ENT) evaluation was performed and endoscopy on 03/22/2021 identified no bleeding, according to verbal report, but mucus plugging was addressed. Bleeding was noted several hours ago and has increased sequentially. Morning hemoglobin has dropped by 1 gram. At current, he is not hemodynamically unstable, but his heart rate is increasing. His past medical history is extensive. He is a known diabetic with hypertension, paroxysmal atrial fibrillation on a direct thrombin inhibitor. He has a history of lung cancer in the right upper lobe diagnosed approximately 1 year ago, treated with radiatio therapy. 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 He also has chronic kidney disease at 100 pack year smoking history and there was an episode of respiratory failure requiring mechanical ventilation in November of this year. OBJECTIVE: At bedside, he is ill-appearing. His temperature is 98, pulse rate is 125, respirations are 30, blood pressure 128/80. HEENT: His oral and nasal mucosa are pink. The tracheostomy site is indurated. There is gross blood in the tracheostomy secretions. HEART: Heart sounds are irregularly irregular. PULMONARY: Breath sounds are rhonchus with dullness in the right base. ABDOMEN: Obese with gastrostomy (G) tube in place. The site is indurated. EXTREMITIES: Show stasis dermatitis. Pulses are diminished. He has ankle edema. DIAGNOSTIC STUDIES: His white cell count is 24.7, hemoglobin 10.9, hematocrit 32.2, platelet count 332,000. Differential white cell count on admission showed 85% neutrophils. His electrolytes are sodium 130, potassium 5.3, chloride 95, CO2 is 24, BUN 131, creatinine 2.40, glucose 350, magnesium 3.2. Chest x-ray shows a new right lower lobe infiltrate. I have reviewed his CT scan faxed from [facility] dated 09/20/2020, which shows a right upper lobe anterior segment nodular density at the pleura, scattered emphysema. There also appears at that time to be a supraglottic invagination of the airway with soft tissue. There is calcification of the coronary arteries and arthritic changes of the spine. MICROBIOLOGY REVIEW: The patient's cultures have shown methicillin-sensitive Staphylococcus aureus and Enterobacter cloacae in the tracheostomy secretions, this on 02/26/2021. On 03/18/2021, abdominal wound culture and tracheostomy wound culture showed methicillin-resistant Staphylococcus aureus. MEDICATIONS REVIEW: He is receiving: - insulin - levofloxacin - Lipitor - Pepcid - Tylenol as needed for pain THE PRIMARY PROBLEMS REQUIRING CRITICAL ATTENTION: 1. Hemoptysis: Etiology is unclear. Will obtain a type and screen in light of the following blood counts and coordinate fiberoptic bronchoscopy in an effort to determine whether this is related to malignancy, either from his ENT malignancy or from his lung malignancy, or if this may relate to trauma from suctioning in light of recent mucus plugging. 2. Infectious disease: He is on broad spectrum antibiotics. Coverage is sufficient for the identified bacteria. If able, at bronchoscopy will obtain a protected brush in the right lower lobe to guide additional therapy. 3. Chronic obstructive pulmonary disease (suspected a 100 pack year cigarette smoking and emphysema seen on CT): Will check an arterial blood gas and change to scheduled Duo-Nebs. 4. Acute on chronic kidney disease: Closely monitor intake and output and renal indices. 5. Atrial fibrillation: Eliquis has been stopped. His heart rate has been increasing. Recommend rate control. 6. Deep venous thrombosis (DVT) prophylaxis: He has been on compression hose with sequentials as the patient is at high risk for DVT and pulmonary embolism in light of malignancy and stasis. 7. Lung cancer: I will request records from [place], where he has had the bulk of his workup for both his lung and ENT malignancies. The case was reviewed with the attending hospitalist. I discussed the case with radiology and with the ENT service, who have evaluated the upper airway. His condition is quite critical and prognosis is guarded to poor. A total of 137 minutes was spent in the provision of bedside critical care and coordination excluding any time for the performance of procedures.
[2021-03-24] MEDS ORDERED: LIDOCAINE 1% MDV 20ML VIAL As Ordered ONE (12:34)
[2021-03-24 12:45] LABS: ABG BASE EXCESS 3.7 (-2.0-2.0); ABG HCO3 27.2 MEQ/L (22.0-26.0); ABG O2 SATURATION 95.1 % (95.0-99.0); ABG PARTIAL PRESSURE CO2 37.4 mmHg (35.0-45.0); ABG PARTIAL PRESSURE O2 61.6 mmHg (75.0-100.0); ABG STANDARD HCO3 27.7 MEQ/L (22.0-26.0); ABG TOTAL CO2 28.4 MEQ/L (23.0-31.0)
--- NOTE | 2021-03-24 13:33 | REP ---
INDICATION: central line placement. COMPARISON: Comparison chest x-ray is from 8:45 a.m. on this date.. TECHNIQUE: Repeat portable sitting chest x-ray time stamp 1:17 p.m.. FINDINGS: A left subclavian central venous catheter is inserted, terminating in the expected location of the superior vena cava. Tracheostomy tube remains in place. Monitoring electrodes are seen. Increased markings are again noted in the right upper lobe and to a lesser extent in the right lung base. Vascular congestion is seen. There is no evidence of pneumothorax. IMPRESSION: Left subclavian catheter in place. No evidence of pneumothorax. Right upper lobe infiltrate. Question right lower lobe. <Electronically signed by Chin Ann > 03/24/21 1630
[2021-03-24] MEDS ORDERED: LIDOCAINE 2% MDV 20ML VIAL As Ordered ONE (13:38)
[2021-03-24] MEDS ORDERED: METOPROLOL 5 MG/5 ML VIAL As Ordered ONE (14:18)
[2021-03-24] MEDS ORDERED: LIDOCAINE 1% MDV 20ML VIAL SC ONE (14:25)
[2021-03-24] MEDS ORDERED: LIDOCAINE 2% MDV 20ML VIAL XX SCH (14:25)
[2021-03-24 15:10] LABS: CALCIUM LEVEL 9.4 MG/DL (8.8-10.2); CREATININE FOR GFR 2.36 MG/DL (0.70-1.30); GLOMERULAR FILTRATION RATE 29.1 (>42); POTASSIUM SERUM 4.9 MEQ/L (3.5-5.1)
[2021-03-24] MEDS: SOTALOL HCL 80 MG TAB GT SCH ×2 (15:22→22:03)
[2021-03-24] MEDS: SOTALOL 40MG PER 1/2 TABLET PO SCH ×2 (15:22→22:03)
--- NOTE | 2021-03-24 17:27 | IPNPDOC ---
Text Note Date of Service The patient was seen on 03/24/21. NOTE Subjective: Patient is a 70-year-old male presented to hospital 3 days ago with a chief complaint of throat infection. Patient is having hemoptysis today. I was called by the nursing staff stating that the patient was having increased blood when they were suctioning and when he was coughing blood was coming out of the trach. This also included clots. Patient states that he is not feeling well today. Physical exam: Vitals: See below General: Alert and oriented male patient who was laying in bed when I walked in. Patient is unable to speak due to recent laryngectomy but is able to communicate via pen and paper. Patient did not appear to be in any acute distress. HEENT: Normocephalic, atraumatic, moist mucous membranes. Neck: Trach collar in place with blood sitting in the mask overlying the trach site with no recent stigmata of bleeding around the trach site. Redness has improved. Cardiac: Regular rate and rhythm, no murmurs, normal S1, normal S2 Pulm: Rhonchi heard in the upper right lung field. Other lung young clear to auscultation. Abd: Nondistended, nontender to palpation, normal bowel sounds PEG tube in place with some purulent drainage surrounding the PEG tube Ext: 1+ pitting edema in the lower extremities bilaterally. Labs: See below Imaging: Chest x-ray performed on 03/24/2021 is reported to show new infiltrate suspected in the right base consistent with pneumonia. Increased markings in the right apex are also noted. Borderline heart size and vascular congestion. Chest x-ray performed on 03/24/2021 is reported to show left subclavian catheter in place. No evidence of pneumothorax. Right upper lobe infiltrate. Question right upper lobe infiltrate Assessment/plan: 70-year-old male presented emergency department with infection around his tracheostomy site he was found to have acute kidney injury and hyponatremia. Patient had hemoptysis today and was transferred to the intensive care unit for further monitoring. 1. Hemoptysis. Patient had bronchoscopy performed by Dr. Khan of pulmonary/critical care. Dr. Khan states there appears to be a drop lesion that appeared to have been bleeding but was not currently bleeding. 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 2. Right lower lobe pneumonia. Patient may have aspiration pneumonia. We will continue to monitor the patient's respiratory status. Patient is currently on vancomycin and Levaquin. 3. Acute kidney injury on chronic kidney disease stage III. Kidney function is slightly better today. We will continue to monitor. 4. Hyponatremia. Slowly improving. Continue to monitor. 5. Tracheostomy site infection. This is improved and we will continue to monitor. 6. PEG site possible infection. Culture shows gram-negative rods. Patient is on Levaquin. 7. Leukocytosis. Mildly improved today. Continue current antibiotics. 8. Type 2 diabetes. Added Levemir as blood sugars been elevated. 9. Hypertension. Continue to monitor home medications. 10. Paroxysmal atrial fibrillation with rapid ventricular response. Patient received IV metoprolol and will be restarted on his sotalol. We will continue to monitor. 11. Hyperlipidemia. Continue patient's home medications DVT Prophylaxis: Anticoagulation with Eliquis has been held due to hemoptysis. Teds and sequentials placed. Disposition: Pending clinical improvement VSNick, I+O VSNick I+O Laboratory Tests 03/24/21 06:03 03/24/21 06:22 03/24/21 14:31 Vital Signs Date Time Temp Pulse Resp B/P (MAP) Pulse Ox O2 Delivery O2 Flow Rate FiO2 03/24/21 16:00 98.4 130 22 130/85 (100) 94 Trach Collar 10.0 60 I&O- Last 24 Hours up to 6 AM 03/24/21 06:00 Intake Total 2080 ml Output Total 850 ml Balance 1230 ml SHANELLE COTTON DO Mar 24, 2021 17:27
[2021-03-24] MEDS: LEVEMIR (INSULIN DETEMIR) 1 UNITS/0.01ML SC SCH (22:02)
[2021-03-25] VITALS (40 sets, daily range): BP systolic 104–149; BP diastolic 56–99
[2021-03-25] MEDS: NYSTATIN 500,000 U/5 ML SUSP UDC SSP SCH ×4 (00:06→17:35)
[2021-03-25] MEDS: HumaLOG INSULIN (NovoLOG) PER UNIT SC SCH ×4 (00:07→17:35)
[2021-03-25] MEDS: IPRATROPIUM 0.5MG/ALBUTEROL 2.5MG INH SOL UD 3ML (DUONEB) NEB SCH ×6 (04:00→23:37)
[2021-03-25 05:26] LABS: BASO # 0.1 10^3/uL (0.0-0.2); BASO % 0.4 % (0.0-1.0); EOS # 0.3 10^3/uL (0.0-0.5); EOS % 1.1 % (0.0-3.0); HEMATOCRIT 33.3 % (42.0-52.0); HEMOGLOBIN 10.9 g/dl (13.5-17.5); LYMPH # 0.7 10^3/uL (1.5-5.0); LYMPH % 2.8 % (24.0-44.0); MEAN CORPUSCULAR HEMOGLOBIN 33.6 pg (27.0-33.0); MEAN CORPUSCULAR HGB CONC 32.7 g/dl (32.0-36.5); MEAN CORPUSCULAR VOLUME 102.8 fl (80.0-96.0); MONO # 2.1 10^3/uL (0.0-0.8); MONO % 8.8 % (2.0-8.0); NEUTROPHILS % 85.2 % (36.0-66.0); PLATELET COUNT, AUTOMATED 335 10^3/uL (150-450); RED BLOOD COUNT 3.24 10^6/uL (4.30-6.10)
[2021-03-25 05:49] LABS: WHITE BLOOD COUNT 23.4 10^3/uL (4.0-10.0)
[2021-03-25 06:03] LABS: ALBUMIN 1.9 GM/DL (3.2-5.2); BILIRUBIN,TOTAL 0.3 MG/DL (0.2-1.0); CALCIUM LEVEL 9.2 MG/DL (8.8-10.2); CREATININE FOR GFR 2.32 MG/DL (0.70-1.30); GLOMERULAR FILTRATION RATE 29.7 (>42); MAGNESIUM LEVEL 3.3 MG/DL (1.8-2.4); PHOSPHORUS LEVEL 1.4 MG/DL (2.5-4.9); POTASSIUM SERUM 5.2 MEQ/L (3.5-5.1); TOTAL PROTEIN 7.4 GM/DL (6.4-8.2); VANCOMYCIN RANDOM 17.5 UG/ML
--- NOTE | 2021-03-25 07:28 | RO ---
OPERATIVE NOTE DATE OF OPERATION: 03/24/2021 PREOPERATIVE DIAGNOSIS: Need for vascular access and antibiotics. POSTOPERATIVE DIAGNOSIS: Need for vascular access and antibiotics. PROCEDURE: Insertion of left subclavian central line. SURGEON: Jb Chauhan MD WAREHOUSE ASSOCIATE: ANESTHESIA: DESCRIPTION OF PROCEDURE: The patient was prepped and draped in usual sterile fashion. The interclavicular fossa was infiltrated with 1% Lidocaine. The subclavian vein was found on second pass. A wire was passed via Seldinger technique without difficulty. Tract was dilated; triple lumen catheter was placed over the wire. The catheter was secured to the chest wall with two 3-0 silk sutures. Ports were aspirated and flushed without difficulty. The patient tolerated the procedure well. Chest x-ray is pending.
--- NOTE | 2021-03-25 08:05 | RO ---
OPERATIVE NOTE DATE OF OPERATION: / / PREOPERATIVE DIAGNOSIS: Hemoptysis, right lower lobe pneumonia. POSTOPERATIVE DIAGNOSIS: Hemoptysis, right lower lobe pneumonia. PROCEDURE: Fiberoptic bronchoscopy with transbronchoscopic washing and brushing right lower lobe. SURGEON: Sim Khan DO, [facility] TIME CYCLE OPERATOR: ANESTHESIA: FINDINGS: Copious airway blood and clots, mucous plugs, ectasis of the bronchial tree on the right, irregular mass density right main bronchus posteriorly. DESCRIPTION OF PROCEDURE: The patient was seen and the procedure explained to the patient as well as the possible complications pertaining thereto, written and informed consent were obtained and placed in the chart. The patient was placed in the supine position. The patient's tracheostomy tube was accessed using an adapter. A flexible fiberoptic bronchoscope was placed in through the tracheostomy site and into the trachea. There were copious mucous plugs suctioned free. The tracheostomy itself was near totally occluded at its distal extent by blood clot and mucous. These were suctioned free using lavage instillation. The airways were then anesthetized with topical Lidocaine and the bronchoscope passed to the level of the kathe. The kathe appeared to be sharp. The airways of the left lung were examined briefly for any evidence of tumor, ulcer, necrosis, vessel engorgement, or mucosal irregularity. With none appreciated the bronchoscope was retracted and redirected toward the right mainstem bronchus. The airways of the right bronchial tree were felt to be ectatic, possibly consistent with radiation effect. There was blood on the posterior wall. A clear source of active bleeding was unable to be assessed initially and the bronchoscope was placed into the right upper lobe, right middle lobe and right lower lobe. The right lower lobe had purulent material emanating, this caused us to obtain a bronchial washing using Lukens trap and thereafter place a plugged telescoping catheter for sterile culture of the right lower lobe. Having accomplished this airways were lavaged further with saline and extrinsic mass-like density was appreciated on the posterior wall of the right main bronchus. It was unclear whether this was just clotted blood or a drop metastasis. The area was fully assessed but given the patient's recent active bleeding and the intention of the procedure to stop that bleeding, biopsy specimens were not obtained. The area was lavaged free of any active blood with saline and bronchoscope retracted out through the patient's tracheostomy tube. The patient tolerated the procedure well, there were no apparent complications and is left in unchanged condition in the ICU. CATRACHO
[2021-03-25] MEDS: allopurinoL 100 MG TAB GT SCH (08:42)
[2021-03-25] MEDS: FOLIC ACID 1 MG TAB GT SCH (08:42)
[2021-03-25] MEDS: SOTALOL 40MG PER 1/2 TABLET PO SCH ×2 (08:43→20:54)
[2021-03-25] MEDS: FAMOTIDINE 20 MG TAB GT SCH ×2 (08:43→20:54)
[2021-03-25] MEDS: SOTALOL HCL 80 MG TAB GT SCH ×2 (08:43→20:54)
[2021-03-25] MEDS: FLUTICASONE PROP 0.05% NASAL SPRAY 16 GM (FLONASE) NARES SCH ×2 (08:44→20:54)
[2021-03-25] MEDS: amLODIPine 5 MG TAB GT SCH (08:44)
[2021-03-25] MEDS: ATORVASTATIN 20 MG TAB GT SCH (08:44)
[2021-03-25] MEDS: NYSTATIN OINTMENT 15 GM TOP SCH ×4 (08:44→20:54)
[2021-03-25] MEDS: LevoFLOXacin IV 750 MG in IV 1 EA IV SCH (08:44)
--- NOTE | 2021-03-25 09:07 | IPNPDOC ---
Subjective Date Seen The patient was seen on 03/25/21. Subjective Chief Complaint/HPI Tre is feeling well today. His nurse tells me he has 3 new small sacral wounds as a result of incontinence. Riddle catheter was placed this AM w/out complications. Tolerating tube feeds well. He underwent bronchoscopy by Dr. Chauhan 03/24/21 and will have cauterization to his suspected bleeding site by Dr. Khan this afternoon. No other concerns or complaints. Skin: Reports: Breakdown (3 small sacral wounds) Genitourinary: Reports: Incontinence (riddle catheter placed) Objective Physical Examination General Exam: Positive: Alert, No Acute Distress Eye Exam: Positive: Conjunctiva & lids normal, EOMI ENT Exam: Positive: Atraumatic, Mucous membr. moist/pink (no dentition), Pharynx Normal, Tongue Midline Neck Exam: Positive: Supple, Other (trach placed. min surrounding redness, no bleeding. L subclavian line placed w/out signs of surrounding infxn) Chest Exam: Positive: Normal air movement Heart Exam: Positive: Rate Normal, Irregular Rhythm, Murmurs (3/4 ) Abdomen Exam: Positive: BS Hypoactive, Soft, Other (bandage over PEG tube site in tact, unsaturated, w/out surrounding signs of infxn. central abd scar, lower abd bruising) Extremity Exam: Positive: Edema (2+ pitting edema b/l LE), Other ( b/l LE) Skin Exam: Positive: Breakdown (3 small sacral wounds (not visualized)) Psych Exam: Positive: Mood NL Assessment /Plan Assessment Tre is 70M admitted w/ trach site infxn on Levo day2, hyponatremia w/ improved Na+ of 136, and possible RLL PNA. Pt has new onset sacral wounds and is pending throat lesion cauterization. Problems (1) Wound of sacral region Onset Date: ~ 03/25/2021 Status: Acute Response to Treatment: Stable Discussed With: Nurse Problem Specific Plan: Monitor Clinically Problem Text: Due to incontinence. Riddle catheter placed this AM. (2) Hyponatremia Status: Acute Response to Treatment: Improving (Na+ 136) Problem Specific Plan: Repeat Labs (3) Neck infection Status: Acute Response to Treatment: Improving Problem Specific Plan: Monitor Clinically, Repeat Labs Problem Text: WBC improved to 23.4 w/ 85.2% Neutrophil bands. Continue to monitor w/ repeat labs On Levoquin Q48, day 2 On Nystatin Q6, day 4 (4) Hemoptysis Onset Date: ~ 03/24/2021 Status: Acute Response to Treatment: Stable Discussed With: Nurse Problem Specific Plan: Monitor Clinically Problem Text: Hemoptysis through trach yesterday, suspicious of drop lesion. Bronchoscopy w/ bx performed by Erin 03/24/21, results pending. Bronchoscopy and chemical cauterization to be performed by Erin 03/25/21. (5) CKD (chronic kidney disease), stage IV Status: Chronic Response to Treatment: Worse (BUN 152, Cr 2.32) Problem Specific Plan: Monitor Clinically, Repeat Labs Problem Text: CKD IV vs MARK Plan/VTE VTE Prophylaxis Ordered?: Yes (Heparin shots) Plan/Urinary Catheter Urinary Catheter: Place Riddle Reason for insertion/continuin: Assist wound healing Plan Diet: Continue Current Activity: Continue Current VS, I&O, 24H, Fishbone Vital Signs/I&O Vital Signs Date Time Temp Pulse Resp B/P (MAP) Pulse Ox O2 Delivery O2 Flow Rate FiO2 03/25/21 06:58 73 129/60 (83) 94 Trach Collar 10.0 60 03/25/21 04:00 98.2 20 I&O- Last 24 Hours up to 6 AM 03/25/21 06:00 Intake Total 1366 ml Output Total 800 ml Balance 566 ml Laboratory Data 24H LABS Laboratory Tests 2 03/24/21 12:34: Blood Gas Bicarbonate Standard 27.7H, Arterial Blood pH 7.480H, Arterial Blood Partial Pressure CO2 37.4, Arterial Blood Partial Pressure O2 61.6L, Arterial Blood Total CO2 28.4, Arterial Blood HCO3 27.2H, Arterial Blood Base Excess 3.7H, Arterial Blood Oxygen Saturation 95.1, Arterial Blood Gas Puncture Site UNKNOWN 03/24/21 14:08: Bedside Glucose (Misc Panel) 299H 03/24/21 14:31: Anion Gap 4L, Glomerular Filtration Rate 29.1L, Calcium Level 9.4 03/24/21 17:29: Bedside Glucose (Misc Panel) 352H 03/24/21 21:41: Bedside Glucose (Misc Panel) 424H 03/25/21 00:02: Bedside Glucose (Misc Panel) 493H 03/25/21 05:17: Immature Granulocyte % (Auto) 1.7, Neutrophils (%) (Auto) 85.2H, Lymphocytes (%) (Auto) 2.8L, Monocytes (%) (Auto) 8.8H, Eosinophils (%) (Auto) 1.1, Basophils (%) (Auto) 0.4, Neutrophils # (Auto) 20.0H, Lymphocytes # (Auto) 0.7L, Monocytes # (Auto) 2.1H, Eosinophils # (Auto) 0.3, Basophils # (Auto) 0.1, Nucleated Red Blood Cells % (auto) 0.1H, Anion Gap 5L, Glomerular Filtration Rate 29.7L, Calcium Level 9.2, Phosphorus Level 1.4L, Magnesium Level 3.3H, Total Bilirubin 0.3, Aspartate Amino Transf (AST/SGOT) 19, Alanine Aminotransferase (ALT/SGPT) 27, Alkaline Phosphatase 279H, Lactate Dehydrogenase 180, Total Creatine Kinase 30L, Total Protein 7.4, Albumin 1.9L, Albumin/Globulin Ratio 0.3, Triglycerides Level 59, Cholesterol Level 59, Random Vancomycin Level 17.5 03/25/21 06:16: Bedside Glucose (Misc Panel) 304H CBC/BMP Laboratory Tests 03/24/21 14:31 03/25/21 05:17 Microbiology Microbiology 03/24/21 Bronchial [place] Culture, Received Pending 03/24/21 Gram Stain - Final, Resulted 03/24/21 Bronchial [place]irate Culture, Resulted Pending 03/23/21 Gram Stain - Final, Resulted 03/23/21 Wound Culture, Resulted Pending 03/20/21 Blood Culture - Preliminary, Resulted No Growth after 72 hours. All specime... 03/20/21 Urine Culture - Final, Complete 03/20/21 Blood Culture - Preliminary, Resulted No Growth after 72 hours. All specime... GME ATTESTATION ATTENDING NOTE I, Silviano Shreiff DO, have independently examined this patient and performed my own physical exam, as well as reviewed the documentation and edited where necessary. I have discussed in detail with the resident / student the findings and plan of treatment as documented by the resident / student and edited their note. I agree with their findings and treatment plan and have edited their documentation. I will continue to follow the patient during this hospital stay. Gloria Thompson DO Mar 25, 2021 09:07 SILVIANO SHERIFF 26, 2021 18:21
[2021-03-25] MEDS ORDERED: EPINEPHrine INJ 1 MG/ML 1ML AMP XX STA (10:51)
--- NOTE | 2021-03-25 10:54 | CCN ---
CRITICAL CARE NOTE DATE: 03/25/2021 SUBJECTIVE: The patient is seen in the Intensive Care Unit requiring significant supplemental oxygen, less hemoptysis over the course of the night, suction specimens remain blood stained, this is hospital day #5, ICU day #2, left subclavian catheter day #2. OBJECTIVE: VITAL SIGNS: At bedside his temperature is 97.1, pulse rate is 72, respirations are 22, blood pressure 117/99. Oxygen delivered via trach collar at 8 liters, achieving a saturation of 95%. INPUT AND OUTPUT: I and O for the past 24 hours, 1886 in and 825 out since, since midnight 0 in, 325 out. CVP measures 11. GENERAL: He is ill-appearing. NECK: Supple. The tracheostomy site is indurated and erythematous. Secretions are mildly purulent. HEART: Heart sounds are irregularly irregular without appreciable murmur. LUNGS: Breath sounds are diminished, asymmetric with a focal wheeze over the right main bronchus. There is some scattered rhonchi. Chest is symmetric. ABDOMEN: Soft and obese, there is a G-tube in good position. Site surrounding the G-tube is mildly erythematous and indurated. EXTREMITIES: Stasis dermatitis, chronic edema. Peripheral pulses are diminished. DIAGNOSTIC STUDIES: Chest x-ray shows right lower lobe pneumonia and a CVP placed in the left side, a formal report is pending. His white cell count is down slightly at 23.4, hemoglobin is 10.9, hematocrit 33.3, platelet count is 375,000. Differential: White cell count shows 85% neutrophils, sodium is 136, potassium is 5.2, chloride is 100, CO2 31, BUN 152, creatinine is 2.32. Glucose 331. The primary problem requiring critical attention is hemoptysis. This has improved after bronchoscopy and lavage of the airways. There are no clots at this point. The secretions remain blood-stained. We will continue with cautious suctioning. Hypoxemia, the saturations are acceptable with supplemental oxygen at this point. Right main bronchus abnormal mass. Will arrange for bedside bronchoscopy today with attempt to biopsy to obtain pathology of this abnormality. Infectious Disease: The patient's trach and G-tube are growing MRSA. Initial sputum culture showed MSSA, the culture from his bronchoscopy yesterday is pending. Broad spectrum antibiotics have been initiated and ID consulted. ENT cancer and lung cancer stages are unknown at this point. We are awaiting results from an inquiry about records from [facility]. Underlying obstructive lung disease is suspected based on 100 pack year history. Will continue with bronchodilator therapy. DVT prophylaxis being addressed with mechanical means. Patient's condition remains critical. ICU care is appropriate. I have reviewed the case with the attending Hospitalist and have updated the ICU nursing team with regard to care plans for the day; 67 minutes was spent in the provision of beside critical care and coordination.
[2021-03-25] MEDS ORDERED: THROMBIN SOLN 5,000 UNITS VIAL XX ONE (10:55)
[2021-03-25] MEDS: LIDOCAINE 2% MDV 20ML VIAL XX SCH ×2 (11:30→15:01)
--- NOTE | 2021-03-25 13:23 | RO ---
OPERATIVE NOTE DATE OF OPERATION: 03/25/2021 PREOPERATIVE DIAGNOSIS: Abnormal nodular density, right main bronchus. POSTOPERATIVE DIAGNOSIS: Abnormal nodular density, right main bronchus with hyperemia of the airways, copious mucus and mucous plugging and old blood in the airways. PROCEDURE PERFORMED: Fiberoptic bronchoscopy with transbronchoscopic washing, cytology brushing and biopsy of the right main bronchus lesion. SURGEON: Sim Khan DO, FCCP HEMSTITCHING MACHINE OPERATOR: Evan Cid DO, ILIA ANESTHESIA: PROCEDURE NOTE: The patient was seen and the procedure explained to the patient as well as the possible complications pertaining thereto, including but not limited to, bleeding, infection, medication reaction and lung collapse. An informed consent was obtained. The patient was placed in a supine position. The trachea was access through the preexisting tracheostomy tube using a flexible fiberoptic bronchoscope. The airways were visualized and lavaged with saline. Lidocaine was introduced for topical anesthetic. Copious mucous plugs and bloody mucous secretions were suctioned free. When the airways had been cleaned of abnormal debris, the bronchoscope was placed into the right main stem bronchus and the lesion visualized on the posterior just distal to the takeoff of the kathe. The area was whitish in color with a vascular base. Transbronchoscopic cytologic brushes were obtained from the site. Thereafter, multiple biopsies were obtained from the site. Once sufficient specimen had been obtained and no further specimen could be appreciated, the area was lavaged with topical epinephrine, lidocaine and saline and when no further secretions could be identified, the bronchoscope was retracted out through the patient's tracheostomy. He tolerated the procedure well, suffered no apparent complication and was left in unchanged condition in the ICU.
[2021-03-25 18:48] LABS: CALCIUM LEVEL 9.4 MG/DL (8.8-10.2); CREATININE FOR GFR 2.35 MG/DL (0.70-1.30); GLOMERULAR FILTRATION RATE 29.3 (>42); POTASSIUM SERUM 5.4 MEQ/L (3.5-5.1)
[2021-03-25] MEDS ORDERED: SOD POLYSTYRENE SULFONATE SUSP 15 GM/60 ML UD PO ONE (19:10)
--- NOTE | 2021-03-25 19:50 | IPN ---
INFECTIOUS DISEASE PROGRESS NOTE DATE: 03/25/2021 SUBJECTIVE: Tre was transferred to the intensive care unit (ICU) because of hemoptysis. He has having a large amount of blood from his tracheostomy. New cultures have been sent. He had a fiberoptic bronchoscopy with bronchoscopic brushing and washing of the right lower lobe. Levaquin was added. He continues on intravenous (IV) vancomycin, which is currently on hold due to elevated vancomycin levels with a trough of 17.5. He is more lethargic than normal. He remains afebrile. PHYSICAL EXAMINATION: VITAL SIGNS: Temperature 96.8, pulse 74, respirations 20, blood pressure 126/62, oxygen saturation 96% on 8 liters, 35% FiO2. HEART: Normal S1, S2. Distant. No murmurs. LUNGS: Extra rhonchi bilaterally. Trach in place. ABDOMEN: Gastrostomy (G) tube with purulent discharge. EXTREMITIES: Trace edema. LABORATORY DATA: Blood cultures two sets: No growth. Urine culture negative. Abdominal culture site is pending. Bronchial washing has a few gram-positive cocci in clusters. IMPRESSION: 1. Right upper lobe infiltrate and right lower lobe pneumonia. Patient with culture positive for methicillin-resistant Staphylococcus aureus (MRSA). Patient has been on intravenous (IV) vancomycin. Will switch him to linezolid through his gastrostomy (G) tube, 600 mg twice a day. 2. Methicillin-resistant Staphylococcus aureus (MRSA) colonization of the G tube will be treated with linezolid. There is quite a bit of purulent discharge on his G tube. 3. 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 I would discontinue Levaquin. There is no need to add gram-negative coverage unless the culture has showed evidence of susceptible pathogen. He had a carbapenem-resistant Enterobacteriaceae on previous culture, with was Enterobacter cloacae and was few and was felt with colonization only susceptible to cefepime. PLAN: Treat methicillin-resistant Staphylococcus aureus (MRSA) pneumonia with linezolid 600 mg twice a day through G tube. Discontinue levofloxacin. Discontinue IV vancomycin. Monitor CBC on linezolid as it has a tendency to cause thrombocytopenia. MTDD
[2021-03-25] MEDS: LINEZOLID 600MG TABLET (ZYVOX) JT SCH (20:54)
[2021-03-25] MEDS: LEVEMIR (INSULIN DETEMIR) 1 UNITS/0.01ML SC SCH (21:25)
[2021-03-26] VITALS (20 sets, daily range): BP systolic 100–153; BP diastolic 53–103
[2021-03-26] MEDS: HumaLOG INSULIN (NovoLOG) PER UNIT SC SCH ×4 (00:17→17:29)
[2021-03-26] MEDS: NYSTATIN 500,000 U/5 ML SUSP UDC SSP SCH ×4 (00:17→17:28)
[2021-03-26] MEDS: IPRATROPIUM 0.5MG/ALBUTEROL 2.5MG INH SOL UD 3ML (DUONEB) NEB SCH ×5 (04:44→19:48)
[2021-03-26 05:36] LABS: BASO # 0.1 10^3/uL (0.0-0.2); BASO % 0.3 % (0.0-1.0); EOS # 0.4 10^3/uL (0.0-0.5); EOS % 1.7 % (0.0-3.0); HEMATOCRIT 31.1 % (42.0-52.0); HEMOGLOBIN 10.3 g/dl (13.5-17.5); LYMPH # 1.1 10^3/uL (1.5-5.0); LYMPH % 4.6 % (24.0-44.0); MEAN CORPUSCULAR HEMOGLOBIN 34.1 pg (27.0-33.0); MEAN CORPUSCULAR HGB CONC 33.1 g/dl (32.0-36.5); MONO # 1.7 10^3/uL (0.0-0.8); MONO % 7.5 % (2.0-8.0); NEUTROPHILS # 19.2 10^3/uL (1.5-8.5); NEUTROPHILS % 82.5 % (36.0-66.0); PLATELET COUNT, AUTOMATED 330 10^3/uL (150-450); RED BLOOD COUNT 3.02 10^6/uL (4.30-6.10)
[2021-03-26 05:56] LABS: ALBUMIN 1.7 GM/DL (3.2-5.2); BILIRUBIN,TOTAL 0.3 MG/DL (0.2-1.0); CREATININE FOR GFR 2.42 MG/DL (0.70-1.30); GLOMERULAR FILTRATION RATE 28.3 (>42); MAGNESIUM LEVEL 3.2 MG/DL (1.8-2.4); PHOSPHORUS LEVEL 1.9 MG/DL (2.5-4.9); TOTAL PROTEIN 6.9 GM/DL (6.4-8.2)
[2021-03-26 05:57] LABS: WHITE BLOOD COUNT 23.3 10^3/uL (4.0-10.0)
[2021-03-26] MEDS: ACETYLCYSTEINE 20% 4 ML VIAL (200MG/ML) INH SCH ×2 (08:00→19:49)
[2021-03-26] MEDS: ATORVASTATIN 20 MG TAB GT SCH (08:27)
[2021-03-26] MEDS: LINEZOLID 600MG TABLET (ZYVOX) JT SCH ×2 (08:27→20:22)
[2021-03-26] MEDS: FAMOTIDINE 20 MG TAB GT SCH ×2 (08:28→20:22)
[2021-03-26] MEDS: SOTALOL 40MG PER 1/2 TABLET PO SCH ×2 (08:28→20:22)
[2021-03-26] MEDS: SOTALOL HCL 80 MG TAB GT SCH ×2 (08:28→20:22)
[2021-03-26] MEDS: FOLIC ACID 1 MG TAB GT SCH (08:28)
[2021-03-26] MEDS: amLODIPine 5 MG TAB GT SCH (08:29)
[2021-03-26] MEDS: allopurinoL 100 MG TAB GT SCH (08:29)
[2021-03-26] MEDS: FLUTICASONE PROP 0.05% NASAL SPRAY 16 GM (FLONASE) NARES SCH ×2 (08:29→20:22)
[2021-03-26] MEDS: NYSTATIN OINTMENT 15 GM TOP SCH ×4 (08:30→20:23)
--- NOTE | 2021-03-26 09:07 | IPNPDOC ---
Text Note Date of Service The patient was seen on 03/26/21. NOTE S: Pt evaluated at bedside. Reports pain and complains that his right lung tom thers him. Nurse tells me his evening was uneventful. O: GEN: laying in bed, trach in place, NAD HEENT: AC/NT, EOMI, nares patent CARDIO: heart sounds normal, irregular rhythm, RR, no MRG PULM: rhonchi, no WR ABD: hyperactive BS, soft, nontender, nondistended SKIN: PEG site clean, w/out drainage, min surrounding erythema, no signs of infxn; trach site clean w/out bleeding or signs of infxn; lower abd bruising A/P: 70M PMH CKD IV and metastatic CA s/p bronchoscopy 03/25/21, pending bx and cx, an d PEG infxn on linezolid day2, w/ unimproved BUN/Cr. #Hemoptysis, possible CA met Improved w/ chemical cauterization 03/25/21 Pending bronchoscopy bx Followed by Pulm #RLL PNA Pending bronchial washing cx On Linezolid base don sensitivities Followed by Pulm - ID on consultation #CKD IV vs MARK BUN/Cr w/out appropriate improvement and unknown baseline Nephro consult ordered, pending eval Haji catheter in place- urine output clear w/out RBC or purulence #PEG site infxn Wound cx +Enterobacter cloacae, +MRSA On Linezolid 60mg, day 2 Followed by ID #Trach site infxn On Linezolid #Hyponatremia Resolved. #Fungal infxn abd folds On Nystatin ointment #HTN - BP well controlled - c/w Amlodipine #PAF Rate remains controlled - c/w Sotalol Eliquis held due to hemoptysis #HLD On Atorvastatin #GERD On Famotidine #DM2 On Insulin SS #DVT prophylaxis TEDs and sequentials Bedrest PEG tube feeds DISPO: Continue close monitoring in PCU, pending clinical improvement VS,Nick, I+O VS, [place], I+O Laboratory Tests 03/25/21 18:02 03/26/21 05:11 Vital Signs Date Time Temp Pulse Resp B/P (MAP) Pulse Ox O2 Delivery O2 Flow Rate FiO2 03/26/21 08:29 77 114/53 03/26/21 06:00 92 Trach Collar 8.0 35 03/26/21 04:00 98.2 24 I&O- Last 24 Hours up to 6 AM 03/26/21 06:00 Intake Total 2410 ml Output Total 1900 ml Balance 510 ml GME ATTESTATION GME ATTESTATION My faculty preceptor for this patient encounter was physically present during the encounter and was fully available. All aspects of the patient interview, examination, medical decision making process, and medical care plan development were reviewed and approved by the faculty preceptor. The faculty preceptor is aware and concurs with the plan as stated in the body of this note and will attest to such by his/her cosignature. ATTENDING NOTE I, Steffen Tomlinson, have independently examined this patient and performed my own physical exam, as well as reviewed the documentation and edited where necessary. I have discussed in detail with the resident / student the findings and plan of treatment as documented by the resident / student and edited their note. I agree with their findings and treatment plan and have edited their documentation. I will continue to follow the patient during this hospital stay. Gloria Thompson DO Mar 26, 2021 09:07 STEFFEN TOMLINSON MD Mar 26, 2021 13:21
--- NOTE | 2021-03-26 10:29 | CCN ---
CRITICAL CARE NOTE DATE: 03/26/2021 SUBJECTIVE: The patient is seen in the Intensive Care Unit with tracheostomy in place. He continues to experience extensive mucous plugging. The secretions are quite thick and purulent though less bloody. Around the episodes of plugging, he has marked oxygen desaturations. OBJECTIVE: PHYSICAL EXAMINATION: VITAL SIGNS: Temperature 98.2, pulse rate 77, respirations 29, blood pressure 114/53, oxygen saturation of 93% is achieved with a delivery of 35% oxygen via aerosol mask. INTAKE AND OUTPUT: I.'s and O.'s for the past 24 hours 2,310 in, 1,725 out, since midnight 105 mL out. GENERAL APPEARANCE: He is ill appearing. NECK: Supple with erythema surrounding the tracheostomy site and purulent secretions. HEART: Regular without appreciable murmur today. The monitor is showing a sinus rhythm. RESPIRATORY: Breath sounds are diminished, asymmetric with thalamus in the right base. There is some focal wheezing in the right base. ABDOMEN: Soft with G-tube in place. There is erythema surrounding the G-tube. Bowel sounds are intact. EXTREMITIES: Stasis dermatitis with some edema. DIAGNOSTIC STUDIES: Sodium is 141, potassium is down to 5, chloride 103, CO2 32, BUN 145, creatinine 2.42, glucose 211. His calcium is 8, phosphorous 1.9, magnesium 3.2, transaminase is slightly elevated. AST at 39, ALT is normal at 44. Alkaline phosphatase is down to 200. The CPK is only 22. Albumin is 1.7. CBC shows a white count of 23.3, with 82% neutrophils. Hemoglobin is stable at 10.3, hematocrit is 31. Platelet count is 330. MEDICATIONS: Reviewed. This is day number one of Linezolid. He had been receiving Vancomycin, Norvasc for blood pressure control. MICROBIOLOGY: Reviewed. The bronchial pressure in the right lower lobe is showing methicillin resistant staph aureus, consistent with the cultures of the tracheostomy site, and NG tube site. ASSESSMENT AND PLAN: 1. The primary problem requiring critical attention is hypoxic respiratory failure - We will continue with aerosolized oxygen to maintain saturations of 90%+. 2. Mucous plugging We will add N acetylcysteine via nebulizer in an effort to reduce secretions. 3. Hemoptysis resolving with holding of the anticoagulation therapy. 4. Right main bronchial abnormality biopsies were performed yesterday. The results are pending. 5. Right lower lobe pneumonia caused by methicillin resistant staph aureus. The patient has been started on Zyvox to which the bacteria are sensitive. 6. ENT and lung cancer - treatment has been deferred pending medical stability and treatment of the infections. 7. DVT prophylaxis is being addressed with mechanical means. 8. Intermittent atrial fibrillation - The patient is rate controlled. At this point we are withholding anticoagulation due to hemoptysis. 9. Ulcer prophylaxis is being addressed with Protonix. CONDITION: The patient's condition remains critical. PROGNOSIS: Guarded. Sixty-two minutes was spent in the provision of bedside critical care and coordination excluding any time in the performance of procedures.
--- NOTE | 2021-03-26 11:30 | REP ---
INDICATION: RLL pneumonia. COMPARISON: Comparison chest x-ray March 24, 2021. TECHNIQUE: Portable upright AP chest radiograph. FINDINGS: Tracheostomy tube is seen in place.. A left subclavian central venous catheter terminates in the superior vena cava location. EKG electrodes are seen. Cardiomediastinal silhouette is unchanged. There increased density markings in the right lung apex unchanged. Right lower lobe markings are improved. No new infiltrate. IMPRESSION: Right base markings appear to be improved. Right upper lobe infiltrate persists. Tracheostomy tube in place.. <Electronically signed by Chin Ann > 03/26/21 [id number]
--- NOTE | 2021-03-26 11:45 | RADENCPD ---
Date/Time of Encounter Date of Encounter: Mar 26, 2021 Time of Encounter: 11:39 Encounter I have been following Tre's progress and note his continued ICU status. 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 There is also the matter of the recently biopsied tracheal lesion, which may be a metastasis. I will continue to follow. The immediate concern I have is for resolution of his infections, CRE, MRSA etc., and hypoxic respiratory failure. Until these problems are well-controlled I will not initiate RT. ABDI ARENAS MD Mar 26, 2021 11:45
[2021-03-26] MEDS: diphenhydrAMINE 50MG/ML VIAL (J1200) IV SCH (20:19)
[2021-03-26] MEDS: LEVEMIR (INSULIN DETEMIR) 1 UNITS/0.01ML SC SCH (20:20)
[2021-03-26] MEDS: CEFEPIME HCL 2 GM in D5W MINI-BAG PLUS 50 ML IV SCH (20:21)
[2021-03-27] VITALS (10 sets, daily range): BP systolic 117–140; BP diastolic 56–66
[2021-03-27] MEDS: HumaLOG INSULIN (NovoLOG) PER UNIT SC SCH ×5 (00:03→23:48)
[2021-03-27] MEDS: NYSTATIN 500,000 U/5 ML SUSP UDC SSP SCH ×6 (00:03→23:47)
[2021-03-27] MEDS: IPRATROPIUM 0.5MG/ALBUTEROL 2.5MG INH SOL UD 3ML (DUONEB) NEB SCH ×7 (00:14→23:25)
[2021-03-27 05:21] LABS: BASO # 0.1 10^3/uL (0.0-0.2); BASO % 0.3 % (0.0-1.0); EOS # 0.7 10^3/uL (0.0-0.5); EOS % 3.4 % (0.0-3.0); HEMATOCRIT 30.7 % (42.0-52.0); HEMOGLOBIN 10.1 g/dl (13.5-17.5); LYMPH # 1.2 10^3/uL (1.5-5.0); MEAN CORPUSCULAR HEMOGLOBIN 33.8 pg (27.0-33.0); MEAN CORPUSCULAR HGB CONC 32.9 g/dl (32.0-36.5); MEAN CORPUSCULAR VOLUME 102.7 fl (80.0-96.0); MONO # 1.4 10^3/uL (0.0-0.8); MONO % 7.1 % (2.0-8.0); NEUTROPHILS # 15.8 10^3/uL (1.5-8.5); NEUTROPHILS % 79.8 % (36.0-66.0); PLATELET COUNT, AUTOMATED 317 10^3/uL (150-450); RED BLOOD COUNT 2.99 10^6/uL (4.30-6.10); WHITE BLOOD COUNT 19.8 10^3/uL (4.0-10.0)
[2021-03-27 05:55] LABS: ALBUMIN 1.7 GM/DL (3.2-5.2); BILIRUBIN,TOTAL 0.3 MG/DL (0.2-1.0); CALCIUM LEVEL 9.3 MG/DL (8.8-10.2); CREATININE FOR GFR 2.5 MG/DL (0.70-1.30); GLOMERULAR FILTRATION RATE 27.2 (>42); MAGNESIUM LEVEL 3.2 MG/DL (1.8-2.4); PHOSPHORUS LEVEL 2.8 MG/DL (2.5-4.9); POTASSIUM SERUM 4.9 MEQ/L (3.5-5.1); TOTAL PROTEIN 6.7 GM/DL (6.4-8.2)
[2021-03-27] MEDS: diphenhydrAMINE 50MG/ML VIAL (J1200) IV SCH ×2 (07:52→19:47)
[2021-03-27] MEDS: ACETYLCYSTEINE 20% 4 ML VIAL (200MG/ML) INH SCH ×2 (08:22→19:39)
[2021-03-27] MEDS: CEFEPIME HCL 2 GM in D5W MINI-BAG PLUS 50 ML IV SCH ×2 (08:45→20:42)
--- NOTE | 2021-03-27 09:23 | IPNPDOC ---
Text Note Date of Service The patient was seen on 03/27/21. NOTE S: Pt seen at bedside. Reports continued discomfort in right lung. Nurse tells me he had an uneventful evening and is stable. O: GEN: laying in bed, trach in place, NAD HEENT: NC/AT, EOMI, nares patent CARDIO: normal heart sounds, RRR, no MRG PULM: CTA b/l, no WRR ABD: hyperactive BS, soft, nontender, nondistended SKIN: 5cm fluid filled blister on RLE, PEG site w/ min purulent drainage and surrounding erythema, no tenderness/swelling/warmth; trach site clean and w/out bleeding or signs of infxn Right lung main bronchus, bronchoscopic biopsy: Mainly degenerated inflammatory debris/acute inflammatory cells and entrapped small cluster of highly atypical squamous cells is noted, suspicious for non- small cell carcinoma. Immunostains for TTF-1, P40 and CK7 were performed. The small atypical cluster is positive for P40(squamous cell stain), and negative for TTF-1 but CK7 is non- contributory as the small cluster disappears. IMAGING: CXR 03/26: Right base markings appear to be improved. Right upper lobe infiltrate persis ts. Tracheostomy tube in place. A/P: 70M PMH CKDIV and metastatic CA w/ PEG infxn on linezolid day 3 w/ unchanging status. 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 BUN/Cr at baseline Diet low protein and high water content Haji catheter in place- urine output clear w/ min sediment, w/out RBC #PEG site infxn Wound cx +Enterobacter cloacae, +MRSA On Linezolid 60mg, day 3 Followed by ID #Trach site infxn- improving On Linezolid day 3 #+MRSA VIP status #Fungal infxn abd folds On Nystatin ointment #HTN BP well controlled c/w Amlodipine #PAF Rate remains controlled c/w Sotalol Eliquis held due to hemoptysis #HLD On Atorvastatin #GERD On Famotidine #DM2- uncontrolled Increased Levemir to 15U BID On Insulin SS Continue to monitor #DVT prophylaxis Hold TEDs due to new onset blister formation on RLE Will start heparin BID tonight, pending stabilization of hemoptysis Bedrest PEG tube feeds- low protein, high water content DISPO: Continue close monitoring in PCU, pending clinical improvement VS,Fishbone, I+O VS, Fishbone, I+O Laboratory Tests 03/27/21 05:04 Vital Signs Date Time Temp Pulse Resp B/P (MAP) Pulse Ox O2 Delivery O2 Flow Rate FiO2 03/27/21 05:00 66 140/63 (88) 90 Trach Collar 8.0 35 03/27/21 04:00 97.4 17 I&O- Last 24 Hours up to 6 AM 03/27/21 06:00 Intake Total 3270 ml Output Total 1630 ml Balance 1640 ml GME ATTESTATION GME ATTESTATION My faculty preceptor for this patient encounter was physically present during the encounter and was fully available. All aspects of the patient interview, examination, medical decision making process, and medical care plan development were reviewed and approved by the faculty preceptor. The faculty preceptor is aware and concurs with the plan as stated in the body of this note and will attest to such by his/her cosignature. ATTENDING NOTE I, Steffen Gomez, have independently examined this patient and performed my own physical exam, as well as reviewed the documentation and edited where necessary. I have discussed in detail with the resident / student the findings and plan of treatment as documented by the resident / student and edited their note. I agree with their findings and treatment plan and have edited their documentation. I will continue to follow the patient during this hospital stay. Gloria Thompson DO Mar 27, 2021 09:23 STEFFEN GOMEZ MD Mar 27, 2021 12:18
[2021-03-27] MEDS: LEVEMIR (INSULIN DETEMIR) 1 UNITS/0.01ML SC SCH ×2 (10:13→20:40)
[2021-03-27] MEDS: allopurinoL 100 MG TAB GT SCH (10:14)
[2021-03-27] MEDS: FOLIC ACID 1 MG TAB GT SCH (10:14)
[2021-03-27] MEDS: FAMOTIDINE 20 MG TAB GT SCH ×2 (10:14→20:40)
[2021-03-27] MEDS: LINEZOLID 600MG TABLET (ZYVOX) JT SCH ×2 (10:14→20:41)
[2021-03-27] MEDS: FLUTICASONE PROP 0.05% NASAL SPRAY 16 GM (FLONASE) NARES SCH ×2 (10:15→20:42)
[2021-03-27] MEDS: SOTALOL 40MG PER 1/2 TABLET PO SCH ×2 (10:15→20:41)
[2021-03-27] MEDS: SOTALOL HCL 80 MG TAB GT SCH ×2 (10:15→20:41)
[2021-03-27] MEDS: ATORVASTATIN 20 MG TAB GT SCH (10:15)
[2021-03-27] MEDS: amLODIPine 5 MG TAB GT SCH (10:15)
[2021-03-27] MEDS: NYSTATIN OINTMENT 15 GM TOP SCH ×4 (10:16→20:42)
--- NOTE | 2021-03-27 12:37 | CR ---
CONSULTATION DATE: 03/26/2021 REQUESTING PHYSICIAN: Dr. Steffen Gomez CONSULTING PHYSICIAN: Dr. Shirley Montenegro REASON FOR CONSULTATION: Chronic kidney disease (CKD), stage IV, with elevated blood urea nitrogen. HISTORY OF PRESENT ILLNESS: Mr. Carcamo is previously known to me. He is a 70-year-old male with a past medical history of longstanding known proteinuric CKD, stage IV, presumably secondary to diabetic nephropathy. He has follows for many years with nephrology in [place] (Dr. Plummer), and he has a baseline creatinine of 2.5. Patient also has a past medical history of insulin-dependent diabetes mellitus, gout, hypertension, dyslipidemia, and a history of tobacco use. 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 Patient is status post tracheostomy and status post percutaneous endoscopic gastrostomy (PEG) placement as well, and he follows up with radiation oncology. Patient has previously refused medical oncology treatment as per the note I reviewed from Dr. Pritchett on 02/26/2021. Patient has been admitted to [facility] since March 20 and is currently being treated for hypoxic respiratory failure and right lower lobe pneumonia caused by methicillin-resistant Staphylococcus aureus (MRSA). His blood urea nitrogen has been around 140 throughout the course of his admission, and prior lab in the [facility] system on February 26 also shows blood urea nitrogen of 136. I spoke with the patient's press tender star signal, Dr. Plummer, who tells me he last saw the patient in the office on March 14, and blood, urea, nitrogen was in the low 100s at that time as well. Patient is nothing by mouth and tube feed dependent. MEDICAL HISTORY: As mentioned above. SURGICAL HISTORY: 1. Cardiac stent in 2010. 2. PEG tube placement. 3. Laryngectomy and partial pharyngectomy and partial thyroidectomy in November 2020. FAMILY HISTORY: Sister with breast cancer. SOCIAL HISTORY: A hundred pack year former smoker. Never drinker. Lives in [place]. He is . HOME MEDICATIONS: Insulin, folic acid, famotidine, atorvastatin, amlodipine, Eliquis, allopurinol, torsemide, and sotalol. REVIEW OF SYSTEMS: Was unobtainable, as patient is unable to talk. VITAL SIGNS: Temperature 97.0, pulse 70, respiratory rate 20, blood pressure 137/103, saturating 99% on trach collar. Intake yesterday was 2.3 liters. Urine output yesterday was 1.7 liters. Weight in the bed scale today is 119.5 kg, and weight on admission was the same, about 118 kg. GENERAL: Patient is seen lying in bed in the intensive care unit (ICU) with the head of the bed elevated. Obese male. Awake, alert, and chronically ill appearing but in no acute distress. Makes eye contact with me and attempts to speak by mouthing words. There is a tracheostomy with secretions. HEART: Sounds are regular. There is 1+ edema in the lower extremities, and he has sequential compression devices. Radial pulse is palpable. RESPIRATORY: Anterior auscultation only. Diminished breath sounds with occasional wheeze. ABDOMEN: A PEG tube in place. There are bowel sounds. GENITOURINARY: Shows a Haji catheter. EXTREMITIES: Show at least 1+ pitting peripheral and dependent edema. NEUROLOGIC: He does follow simple commands and attempts to speak by mouthing words. LABORATORY STUDIES: Sodium 141, potassium 5.0, bicarbonate 32, BUN 145, creatinine is 1.4, GFR is 38, phosphorus is 1.9, magnesium is 3.2. Albumin 1.7. Hemoglobin 10.3, platelets 330, white count 23. Urinalysis showed 1+ protein. Chest x-ray this morning shows right base markings, which are improved, and there is right upper lobe infiltrate. INPATIENT MEDICATIONS: I stopped the milk of magnesia and the Mylanta. He is on cefepime 2 grams intravenous (IV) every 12 hours, Tylenol as needed, DuoNeb around the clock every 4 hours, allopurinol 200 mg daily, amlodipine 5 mg daily, atorvastatin 20 mg daily, diphenhydramine 50 mg IV every 12 hours, Pepcid 20 mg twice a day, folic acid 1 mg daily, insulin, Zyvox 600 mg twice daily, sotalol 120 mg by mouth twice a day. Renal ultrasound done March 20 shows no obstruction. PROBLEMS: 1. Chronic kidney disease (CKD), stage IV. I spoke with patient's primary press tender star signal (Dr. Plummer) in [place]. Patient has been seen there for a number of years and has known proteinuric CKD stage IV presumably secondary to diabetic nephropathy with a baseline creatinine of 2.5. Apparently the patient's blood urea nitrogen has been in the low 100s recently, possibly related to his tube feedings. He was taking torsemide 40 mg by mouth twice a day as an outpatient, but this has been held during his current admission. He is not on any other medications that could cause significant elevation in blood urea nitrogen. (He is not on high-dose steroids, he is not on current diuretic. Additionally, there is no sign of gastrointestinal [GI] bleed.) He is hyperosmolar at present, and I suggest to decrease his tube feed and switch him to a low-protein tube feed and to increase the free water so that he is getting 1.5 liters of water intake a day. I see no current urgent indication for dialysis. Patient does not appear uremic. His electrolytes and acid-base status are stable. He is a poor dialysis candidate regardless given his status trach, status PEG, and malignancy and generalized debility. 2. Hyperosmolar state. I have added a serum osmolality onto the labs. Patient's sodium has increased by around 16 points on this admission. Given that his blood urea nitrogen is in the 140s, I would expect him to have a lower sodium. We need to decrease the tube feed rate, put him on a low-protein tube feed, and increase the free water that he is receiving to the PEG tube in an effort to decrease his blood urea nitrogen. 3. Hypermagnesemia. I have stopped the magnesium-containing compounds. Free water will help there as well. 4. Right lower lobe pneumonia. He is followed by pulmonary, and he is on Zyvox. He has also had recent hemoptysis, and his chronic anticoagulation that he takes for atrial fibrillation has been held. DISPOSITION: Recommendations were discussed with the primary service. I also did get in touch with the patient's and with his outpatient press tender star signal to update them regarding his current clinical condition. CATRACHO
--- NOTE | 2021-03-27 12:43 | CCN ---
CRITICAL CARE NOTE DATE: 03/27/2021 SUBJECTIVE: Patient was seen and examined this morning during bedside rounds. Overnight, patient did have a few episodes of coughing with minimal mucous secretions reported. Overnight, he did not have significant episodes of hemoptysis. This morning, he did cough and have dark blood clot with some reyna mucus expectorated in his tracheostomy tube. Patient did not have any significant desaturation even with his coughing episodes. He denies any chest pain currently. He denies any worsening shortness of breath or dyspnea. He is able to mouth answers to questions and he does appear to be following commands and is appropriate. The patient did not have fevers noted overnight. He was able to stand up with two-person assist by PT with the addition of ambulation band device. He does have significant deconditioning. OBJECTIVE: Vitals: Temperature 97.4, pulse 66, respirations 17, blood pressure 140/63. O2 sat is 93 to 90% on trach collar at 35% FiO2, in 2.8 liters, out 1.6 liters, net positive 1.2 liters. General: Patient is chronically ill-appearing. He is lying in bed, appears awake and alert and is not in any acute respiratory distress. He is not using any accessory muscles for respirations currently. HEENT: Normocephalic, atraumatic. Patient's pupils are reactive bilaterally. Neck: With tracheostomy in place with some surround erythema around the site and some secretions noted. Cardiac: Regular rate and rhythm. Normal S-1, S-2. Unable to clearly appreciate any murmurs. Respiratory: There are diminished breath sounds more noted on the right base. There is no significant wheezing or rhonchi noted. Abdomen: Soft, nontender, nondistended. There is a PEG tube in place. There are no palpable masses. Lower Extremities: There is evidence of chronic venous skin changes and stasis dermatitis with trace pitting edema bilaterally in the lower extremities. LABS: WBC trending down to 19.8, hemoglobin 10.1, platelets are 317. Chemistries: Sodium is 138. Potassium is 4.9. Chloride is 102. Bicarb is 32, BUN is 149. Creatinine is 2.50. Glucose is 174. Phosphorus 2.8. Calcium is 9.3. Magnesium is 3.2. AST and ALT trending up to 53 and 57. Alk phos is 201. Albumin is 1.7. Bronchoscopy washing culture was positive for MRSA. The bronchoscopy pathology of the right main stem endobronchial lesion showed mostly inflammatory debris but there was a small cluster of atypical squamous cells suspicious for non-small cell carcinoma. The cytology brush also showed atypical cells. ASSESSMENT AND PLAN: Mr. Carcamo is a 70-year-old with a past medical history of laryngeal carcinoma, stage 3, status post laryngectomy with partial pharyngectomy with a complicated postoperative course, status post tracheostomy and PEG tube placement, history of CKD, atrial fibrillation and hypertension, who presented initially with concern for infection around his tracheostomy site and also around his PEG tube site. The patient was being treated with antibiotics and being followed by ID. He then developed episodes of hemoptysis while on anticoagulation. He did have a bronchoscopy performed which showed evidence of endobronchial lesion in the right main stem bronchus which was biopsied. Patient's hemoptysis has improved and his oxygenation has also improved. 1. History of laryngeal carcinoma, stage III, status post non-oncologic laryngectomy and partial pharyngectomy who was status post tracheostomy placement. There is also a history of non-small cell carcinoma of the right upper lobe, status post radiation. The patient has received most of his oncologic care and ENT care in an outside hospital. Patient had bronchoscopy performed which did show evidence of a right main stem endobronchial lesion. The pathology biopsy results show mostly inflammation but there are rare clusters of atypical squamous cells, suspicious for a non-small cell carcinoma. With his history of head and neck, I suspect he does have metastatic lesions in his right main stem bronchus. Patient is also suspected to have local recurrence in the hypopharynx as well as he did have a positive margin at the cricoid with his initial surgery. Given patient's poor functional status and now with the suspicion of metastatic disease, suspect patient would be a poor candidate for systemic chemotherapy at this time. Palliative treatment may be considered including palliative radiation for his recurrent disease as well as more interventional procedures for the endobronchial lesion particularly if there is recurrent bleeding. The interventions would still be palliative in nature for the endobronchial lesion. Would discuss with the patient and his about further goals of care given his overall prognosis with his malignancy and with his current functional status and decline over the past several months. The patient's hemoptysis has improved with holding anticoagulation therapy. Some of the hemoptysis is also in the setting of his respiratory infection. There is a possibility with his endobronchial lesion that he may have recurrent bleeding and in that case, would consider transfer to a facility with interventional pulmonary for intervention at that time including the possibility of laser or cryotherapy. For now, suspect he will further improvement with his hemoptysis with treating his infection and withholding his anticoagulation. He does need occasional suctioning. However, would avoid going too deep into his right main stem bronchi with suctioning as that may cause some suction trauma. We will continue with Mucomyst and nebulized bronchodilators to help with mucous clearance. He has had some improvement in his episodes of mucous plugging and his hypoxia. 2. Hypoxemic respiratory failure with a history of tracheostomy. Patient will continue with aerosolized oxygen and we will continue to wean down to maintain O2 sat above 90%. Continue with head of bed elevation and aspiration precaution. 3. Pneumonia and PEGG tube infection. Patient has MRSA in the sputum and on his bronchoscopy washings. He also has a history of carbapenem resistant enterobacteria. I appreciate ID consult and recommendations. He is on Linezolid as well as cefepime. We will continue with antibiotics as per ID. Patient has had improvement in his leukocytosis and some improvement in his right lower lobe infiltrate on imaging with the antibiotics. 4. History of CKD with significantly increased BUN to creatinine ratio. I appreciate nephrology consult and recommendations. Patient appears to have chronically elevated BUN and creatinine and is close to baseline although BUN is higher than his usual. Suspect some of his elevated BUN may in the setting of his hemoptysis. Would consider an upper GI bleed. However, he does not appear to have any evidence of melena. His H&H did trend down initially but has now remained stable. We will continue to monitor his renal function and I&Os. He is on a diuretic as an outpatient which is currently on hold. 5. History of hypertension and paroxysmal atrial fibrillation, rate controlled currently. Patient's anticoagulation is on hold for now due to his hemoptysis. He does have increased risk for VTE given his history. His TEDs are on hold due to blister in his lower extremity. Would consider restarting him tomorrow on heparin b.i.d. for DVT prophylaxis but to continue holding full anticoagulation at this time. Code Status: FULL CODE. Total critical care time spent not including any procedures approximately one hour and 10 minutes. I would discuss with the patient and the family about his ultimate goals of care.
[2021-03-27 14:38] LABS: URIC ACID 7.5 MG/DL (3.5-7.2)
[2021-03-28] VITALS (21 sets, daily range): BP systolic 103–134; BP diastolic 52–69; O2SAT 90–97
[2021-03-28] MEDS: IPRATROPIUM 0.5MG/ALBUTEROL 2.5MG INH SOL UD 3ML (DUONEB) NEB SCH ×5 (04:57→19:41)
[2021-03-28] MEDS: NYSTATIN 500,000 U/5 ML SUSP UDC SSP SCH ×3 (05:15→17:49)
[2021-03-28] MEDS: HumaLOG INSULIN (NovoLOG) PER UNIT SC SCH ×3 (05:15→18:08)
[2021-03-28 05:39] LABS: BASO # 0.1 10^3/uL (0.0-0.2); BASO % 0.5 % (0.0-1.0); EOS # 0.8 10^3/uL (0.0-0.5); EOS % 4.6 % (0.0-3.0); HEMATOCRIT 30.9 % (42.0-52.0); LYMPH % 5.9 % (24.0-44.0); MEAN CORPUSCULAR HEMOGLOBIN 33.7 pg (27.0-33.0); MEAN CORPUSCULAR HGB CONC 32.4 g/dl (32.0-36.5); MONO # 1.3 10^3/uL (0.0-0.8); MONO % 7.5 % (2.0-8.0); NEUTROPHILS # 13.2 10^3/uL (1.5-8.5); NEUTROPHILS % 77.6 % (36.0-66.0); PLATELET COUNT, AUTOMATED 308 10^3/uL (150-450); RED BLOOD COUNT 2.97 10^6/uL (4.30-6.10)
[2021-03-28 06:12] LABS: ALBUMIN 1.6 GM/DL (3.2-5.2); BILIRUBIN,TOTAL 0.3 MG/DL (0.2-1.0); CALCIUM LEVEL 8.4 MG/DL (8.8-10.2); CREATININE FOR GFR 2.58 MG/DL (0.70-1.30); GLOMERULAR FILTRATION RATE 26.3 (>42); PHOSPHORUS LEVEL 3.3 MG/DL (2.5-4.9); POTASSIUM SERUM 4.8 MEQ/L (3.5-5.1); TOTAL PROTEIN 5.6 GM/DL (6.4-8.2)
[2021-03-28] MEDS: ACETYLCYSTEINE 20% 4 ML VIAL (200MG/ML) INH SCH ×2 (07:16→19:41)
[2021-03-28] MEDS: diphenhydrAMINE 50MG/ML VIAL (J1200) IV SCH ×2 (08:11→21:19)
--- NOTE | 2021-03-28 08:18 | IPN ---
PROGRESS NOTE DATE: 03/27/2021 SUBJECTIVE: Mr. Carcamo is seen and examined at the bedside in the Intensive Care Unit. He is sitting out of bed to a chair. He cannot speak but he does answer questions with use of pad of paper and pen. When I ask him the year he writes down 2020 and when I asked him the month he writes down the number 7. He shakes his head no when I ask him if he is short of breath. The nursing staff reports no significant overnight events. OBJECTIVE: VITAL SIGNS: Temperature is 97.7, pulse is 71, respiratory rate is 20, blood pressure is 133/61, saturating 95% on trach color. INTAKE AND OUTPUT: Intake yesterday was 2.8 liters, urine output was 1.6 liters, net positive 1.2 liters. Weight on the bed scale was 122.5 kg. GENERAL: Patient was seen sitting in a chair, awake, alert and cooperative and tries to be communicative. Chronically ill-appearing but not in any acute distress. Makes eye contact. Has a tracheostomy. HEART: Heart sounds are regular. S1 and S2. EXTREMITIES: Chronic venous stasis skin changes and only trace edema is present. RESPIRATORY: Bilateral air movement which is mildly diminished on the right. There was no coughing or wheezing. There is a central line in the left chest wall. ABDOMEN: Soft and nontender. There is a PEG tube in place. GENITOURINARY: Haji catheter. NEUROLOGIC: He is able to mouth some simple answers, writes down 2020 when I ask him the year and writes down the number 7 when I ask him the month. LABORATORY DATA: Sodium 138, potassium 4.9, bicarbonate 32, BUN 149, creatinine 2.5, serum osmolality 345. Phosphorus 2.8, magnesium 3.2, albumin 1.7, hemoglobin 10.1, platelets 317,000, white count 19.8. INPATIENT MEDICATIONS: He continues on IV Cefepime, Mucomyst, DuoNeb, Allopurinol. He continues on amlodipine 5 mg daily, atorvastatin 20 mg daily, Diphenhydramine 50 mg IV q. 12 hourly, Pepcid 20 mg b.i.d., folic acid 1 mg daily, insulin, Zyvox 600 mg twice daily, Sotalol 120 mg p.o. b.i.d. PROBLEMS: 1. CKD Stage IV, baseline creatinine is around 2.5, blood urea nitrogen is significantly elevated and his primary hinging machine operator, Dr. Plummer, said his blood urea nitrogen has been around 100-110 in the outpatient setting recently. Given that he does not seem to have any significant GI bleed, is not currently on diuretic, has not currently been on any high dose steroids, I feel that the marked elevation in blood urea nitrogen is most likely due to the protein load in his tube feeds. I suspect he has been on tube feeds since November 2020 which is when he had his laryngectomy and pharyngectomy done. He is presently only receiving 1 liter of free water per day which is quite a restricted fluid intake and he is on full strength tube feeds. He is significantly hyperosmolar with serum osmolality of almost 350. He needs increased free water. I suggest to significantly reduce the tube feed and to increase his free water intake and to continue to hold diuretics at this time. 2. Hyperosmolar state. Discussed with Dr. Gomez regarding increasing the patient's free water. He is currently receiving only 1 liter of free water a day with his full-strength tube feeds which is quite a significant water restriction. His sodium level has come up more than 10 points over the course of this admission and his hyperosmolality has worsened over the course of this admission. We need to cut down the protein in the tube feeds, cut down the rate of his tube feeds and increase his free water. 3. Functional status. Despite the blood urea nitrogen of around 150, I see no urgent indication for dialysis at this time. Patient has no severe electrolyte abnormality nor acid based issue. His volume status is acceptable and he is not uremic. In any case, he would be a very poor candidate for dialysis given likelihood and suspicion of metastatic disease (positive margins at the cricoid). Status trach, status PEG and worsening deconditioning. He has previously refused medical oncology consults. I expect that even with adjusting his tube feeds and his free water it will take a consider amount of time for his blood urea nitrogen to downtrend. MTDD
--- NOTE | 2021-03-28 08:21 | IPNPDOC ---
Text Note Date of Service The patient was seen on 03/28/21. NOTE S: Pt seen at bedside. No complaints or concerns today. O: GEN: laying in bed, alert and awake, trach in place, NAD HEENT: NC/AT, EOMI, nares patent CARDIO: normal heart sounds, RRR, no MRG PULM: CTA b/l, no WRR ABD: hyperactive BS, soft, nontender, nondistended SKIN: PEG site cleand and w/out signs of infxn; trach site clean and w/out bleeding or signs of infxn IMAGING: Right lung main bronchus, bronchoscopic biopsy: Mainly degenerated inflammatory debris/acute inflammatory cells and entrapped small cluster of highly atypical squamous cells is noted, suspicious for non- small cell carcinoma. Immunostains for TTF-1, P40 and CK7 were performed. The small atypical cluster is positive for P40(squamous cell stain), and negative for TTF-1 but CK7 is non- contributory as the small cluster disappears. CXR 03/26: Right base markings appear to be improved. Right upper lobe infiltrate persists. Tracheostomy tube in place. A/P: 70M PMH CKDIV, metastatic CA w/ non small cell lung CA complicated by hemoptysis and PNA, on linezolid day3 and cefepime day4, w/ unchanging status. #Non-small cell lung CA in RUL Family discussion w/ regards to clinical expectations and goals of care May refer to [facility] for recommendations, pending pt and family's goals of care #Hemoptysis- CA met Improved w/ chemical cauterization 03/25/21 Right lung main bronchus bx +atypical squamous cells RLL bronchial brush cx +MRSA Rad/Onc recommend radiation following resolution of infxns and hypoxic resp failure Followed by Pulm, Rad/Onc #RLL PNA- improving Bronchial washing cx + MRSA On Linezolid day4, based on sensitivities On Cefepime day3 Followed by Pulm, ID #Supraglottic tumor on left - s/p laryngectomy and partial pharyngectomy / partial thyroidectomy - Surgery completed at [facility] by Dr. 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 - Patient had refused systemic chemotherapy at the recommendation of radiation oncology - c/w Radiation oncology #CKD IV- stable BUN/Cr at baseline Diet low protein and high water content Haji catheter in place #PEG site infxn- improving Wound cx +Enterobacter cloacae, +MRSA On Linezolid day4, Cefepime day3 Followed by ID #Trach site infxn- improving On Linezolid day 4 On Cefepime, day3 Followed by ID #+MRSA / Enterobacter cloacae CRE VIP status #Fungal infxn abd folds On Nystatin ointment #HTN BP well controlled c/w Amlodipine #PAF Rate remains controlled c/w Sotalol Eliquis held due to hemoptysis #HLD On Atorvastatin #GERD On Famotidine #DM2- improved control On Levemir, Insulin SS Continue to monitor #DVT prophylaxis Heparin BID- monitor for hemoptysis Bedrest PEG tube feeds- low protein, high water content DISPO: subacute rehab VS,Fishbone, I+O VS, Fishbone, I+O Laboratory Tests 03/28/21 05:27 Vital Signs Date Time Temp Pulse Resp B/P (MAP) Pulse Ox O2 Delivery O2 Flow Rate FiO2 03/28/21 08:00 96.9 69 22 116/56 (76) 92 Trach Collar 35 03/27/21 05:00 8.0 I&O- Last 24 Hours up to 6 AM 03/28/21 06:00 Intake Total 1590 ml Output Total 2500 ml Balance -910 ml GME ATTESTATION GME ATTESTATION My faculty preceptor for this patient encounter was physically present during the encounter and was fully available. All aspects of the patient interview, examination, medical decision making process, and medical care plan development were reviewed and approved by the faculty preceptor. The faculty preceptor is aware and concurs with the plan as stated in the body of this note and will attest to such by his/her cosignature. ATTENDING NOTE I, Steffen Gomez, have independently examined this patient and performed my own physical exam, as well as reviewed the documentation and edited where necessary. I have discussed in detail with the resident / student the findings and plan of treatment as documented by the resident / student and edited their note. I agree with their findings and treatment plan and have edited their documentation. I will continue to follow the patient during this hospital stay. Gloria Thompson DO Mar 28, 2021 08:21 STEFFEN GOMEZ MD Mar 28, 2021 12:19
[2021-03-28] MEDS: CEFEPIME HCL 2 GM in D5W MINI-BAG PLUS 50 ML IV SCH ×2 (08:43→21:19)
[2021-03-28] MEDS: amLODIPine 5 MG TAB GT SCH (09:22)
[2021-03-28] MEDS: LEVEMIR (INSULIN DETEMIR) 1 UNITS/0.01ML SC SCH ×2 (09:22→21:21)
[2021-03-28] MEDS: HEPARIN SOD (PORCINE) 5000UNITS/ML 1ML VIAL/SYRINGE SQ SCH ×2 (09:22→21:20)
[2021-03-28] MEDS: allopurinoL 100 MG TAB GT SCH (09:23)
[2021-03-28] MEDS: FAMOTIDINE 20 MG TAB GT SCH ×2 (09:23→21:19)
[2021-03-28] MEDS: ATORVASTATIN 20 MG TAB GT SCH (09:23)
[2021-03-28] MEDS: FOLIC ACID 1 MG TAB GT SCH (09:23)
[2021-03-28] MEDS: SOTALOL HCL 80 MG TAB GT SCH ×2 (09:23→21:20)
[2021-03-28] MEDS: LINEZOLID 600MG TABLET (ZYVOX) JT SCH ×2 (09:23→21:19)
[2021-03-28] MEDS: SOTALOL 40MG PER 1/2 TABLET PO SCH ×2 (09:23→21:20)
[2021-03-28] MEDS: NYSTATIN OINTMENT 15 GM TOP SCH ×2 (09:24→12:29)
[2021-03-28] MEDS: FLUTICASONE PROP 0.05% NASAL SPRAY 16 GM (FLONASE) NARES SCH ×2 (09:24→21:21)
--- NOTE | 2021-03-28 11:11 | CCN ---
PULMONARY CRITICAL CARE SERVICE NOTE DATE: 03/27/2021 SUBJECTIVE: The patient is seen in the Step-Down Unit. This is hospital day #8. Left subclavian catheter day #4. He has had no further hemoptysis through the night according to nursing. He voices no active complaints at this point. OBJECTIVE: Temperature 96.9, pulse rate 63, respirations 22, blood pressure 116/56. I&O for the past 24 hours 2110 and 2400 out, since midnight 0 in and 625 out. At bedside he is ill-appearing, his oral mucosa is pink. Neck is supple. There is tracheostomy in place. The site around the tracheostomy is erythematous and indurated. No palpable adenopathy although the neck is full. Heart sounds are regular, somewhat distant. Breath sounds diminished with focal decrease in right lower lobe. Less scattered rhonchi today than on prior days and no accessory muscle use appreciated. Abdomen soft, G-tube is in place, G-tube site mildly to moderately erythematous. Extremities show edema and stasis dermatitis. DIAGNOSTIC STUDIES: Sodium 140, potassium 4.8, chloride 104, CO2 22, BUN 141, creatinine 2.58, glucose 163. White cell count is down to 17, hemoglobin stable at 10, hematocrit 30.9, platelet count 308 thousand. Differential: White cell count shows 77% neutrophils. AST is 58, ALT 66, albumin 1.6. Chest x-ray shows improvement in the right base. 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 ASSESSMENT: 1. Hemoptysis resolving. Cautious suctioning has been carried out and low dose Heparin started without complication. 2. Hypoxemia. Saturations are acceptable on 35% Aerosol trach-mask. 3. Chronic kidney disease the renal indices are stable. 4. Lung cancer, status post radiation therapy, stage is unclear. 5. Laryngeal carcinoma, extensive disease, chemotherapy is being contemplated by the patient and family. 6. Methicillin resistant Staph aureus, present on culture from tracheostomy site, G-tube and protected brushing from the right lower lobe. The patient is responding to Zyvox in that there has been no fever and his white cell count is resolving. PLAN: I will recommend very cautious suctioning through the tracheostomy tube as the metastatic lesion in his right main bronchus is easily disturbed by the suction catheter and could easily bleed. I discussed this with the nursing staff and at bedside. I have updated the attending Hospitalist. We will continue to follow on as needed basis. Please do not hesitate to contact us if the patient's status should change. CATRACHO
--- NOTE | 2021-03-28 15:48 | RADENCPD ---
Date/Time of Encounter Date of Encounter: Mar 28, 2021 Time of Encounter: 15:41 Encounter Met with patient's , discussed his oncologic status, he has a right mainstem lesion which Dr. 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 I explained that he would benefit from RT to the head and neck, and the drop metastasis could be treated subsequently as its etiology does not imply hematologic metastatic spread (eg it too is a "local problem"). I identified the barriers to starting RT are his ongoing infections and poor respiratory status. Once these resolve and he mobilizes, then we can begin treatment. If his disposition is to rehab, then we could continue his treatments while he is there as long as the rehab center is local. As disposition approaches I will advocate that he goes to a facility that will accept his need for daily RT. Patient's was happy for the report and is in agreement with the plan. ABDI ARENAS MD Mar 28, 2021 15:47
[2021-03-28 17:07] LABS: ABG BASE EXCESS 1.2 (-2.0-2.0); ABG HCO3 28.5 MEQ/L (22.0-26.0); ABG PARTIAL PRESSURE CO2 58.1 mmHg (35.0-45.0); ABG PARTIAL PRESSURE O2 71.9 mmHg (75.0-100.0); ABG STANDARD HCO3 25.5 MEQ/L (22.0-26.0); ABG TOTAL CO2 30.2 MEQ/L (23.0-31.0); ABG pH (ARTERIAL) 7.308 UNITS (7.350-7.450)
[2021-03-28] MEDS ORDERED: IPRATROPIUM 0.5MG/ALBUTEROL 2.5MG INH SOL UD 3ML (DUONEB) NEB PRN (17:15)
--- NOTE | 2021-03-28 17:32 | REP ---
INDICATION: sob. COMPARISON: Comparison chest x-ray March 26, 2021. TECHNIQUE: Portable upright AP chest radiograph. FINDINGS: Tracheostomy tube is seen in place. Left subclavian central venous line terminates in the superior vena cava. Heart size is borderline. Areas of increased parenchymal opacity persist in the right upper lobe and right base. No new infiltrate.. IMPRESSION: No new infiltrate. Tracheostomy tube remains in place.. <Electronically signed by Chin Ann > 03/28/21 [id number]
[2021-03-28 18:15] LABS: BASO # 0.1 10^3/uL (0.0-0.2); BASO % 0.6 % (0.0-1.0); EOS # 0.7 10^3/uL (0.0-0.5); EOS % 4.2 % (0.0-3.0); HEMATOCRIT 32.2 % (42.0-52.0); HEMOGLOBIN 10.3 g/dl (13.5-17.5); LYMPH # 0.8 10^3/uL (1.5-5.0); LYMPH % 4.3 % (24.0-44.0); MEAN CORPUSCULAR HEMOGLOBIN 33.7 pg (27.0-33.0); MEAN CORPUSCULAR VOLUME 105.2 fl (80.0-96.0); MONO # 1.2 10^3/uL (0.0-0.8); MONO % 6.7 % (2.0-8.0); NEUTROPHILS # 14.1 10^3/uL (1.5-8.5); NEUTROPHILS % 80.2 % (36.0-66.0); PLATELET COUNT, AUTOMATED 314 10^3/uL (150-450); RED BLOOD COUNT 3.06 10^6/uL (4.30-6.10); WHITE BLOOD COUNT 17.6 10^3/uL (4.0-10.0)
[2021-03-28 18:41] LABS: ABG BASE EXCESS 1.9 (-2.0-2.0); ABG HCO3 27.7 MEQ/L (22.0-26.0); ABG O2 SATURATION 92.4 % (95.0-99.0); ABG PARTIAL PRESSURE CO2 48.6 mmHg (35.0-45.0); ABG PARTIAL PRESSURE O2 60.3 mmHg (75.0-100.0); ABG STANDARD HCO3 26.1 MEQ/L (22.0-26.0); ABG TOTAL CO2 29.2 MEQ/L (23.0-31.0); ABG pH (ARTERIAL) 7.374 UNITS (7.350-7.450)
[2021-03-28 18:43] LABS: CK-MB VALUE MASS < 1.0 NG/ML (<3.6); CPK CREATINE PHOSPHOKINASE 27 U/L (39-308); TROPONIN I < 0.02 NG/ML (< 0.10)
[2021-03-28 18:47] LABS: ALBUMIN 1.6 GM/DL (3.2-5.2); BILIRUBIN,TOTAL 0.2 MG/DL (0.2-1.0); CALCIUM LEVEL 8.6 MG/DL (8.8-10.2); CREATININE FOR GFR 2.6 MG/DL (0.70-1.30); MAGNESIUM LEVEL 3.2 MG/DL (1.8-2.4); PHOSPHORUS LEVEL 4.1 MG/DL (2.5-4.9); POTASSIUM SERUM 5.4 MEQ/L (3.5-5.1); TOTAL PROTEIN 5.7 GM/DL (6.4-8.2)
--- NOTE | 2021-03-28 18:55 | ECGEPIP ---
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
--- NOTE | 2021-03-28 19:54 | CCN ---
CRITICAL CARE NOTE DATE: 03/28/2021 START TIME: 1809 STOP TIME: 1847 SUBJECTIVE: I was called to attend Tre Carcamo here in the intensive care unit. The patient has been examined and chart has been reviewed. I spoke at length with Dr. Cruz, as well as the nurse at the bedside. In essence, this is a gentleman who has been previously seen by Dr. Khan. He has a partially resected stage IV laryngeal cancer with a drop lesion in the right mainstem and partially treated non-small cell carcinoma of the right lung. Earlier this evening, he was seen to have altered mental status with increasing lethargy. Arterial blood gas done at that time showed a pH of 7.308, pCO2 of 58, pO2 of 71.9. He was moved to the intensive care unit and was placed on mechanical ventilation. Unfortunately, the tracheostomy he has in place is without a cuff and therefore, we have significant leak. I spoke with Dr. Munoz from ENT, who is in route to change his tracheostomy to something with a cuff. In the interim, however, although he is losing volumes with the ventilator, his mental status is mildly improved and a repeat blood gas done on pressure port of 10, PEEP of 5, FiO2 of 50% has a pH now up to 7.374, pCO2 down to 48.6 and a pO2 acceptable at 60.3. Chest x-ray shows no acute findings and reasonable aeration at the right base. No obvious atelectasis compared to his most recent film. PHYSICAL EXAMINATION: VITAL SIGNS: Heart rate 80 and regular, respiratory rate to 24 without obvious accessory muscle use, blood pressure is 118 systolic. He is currently afebrile. HEENT: Does show the pupils react. Sclerae clear. His tracheostomy stoma is intact. He still has cellulitis changes around, especially the right side of his neck. There is a left subclavian line in place. RESPIRATORY: Expansion of the chest, though diminished, is symmetric. There is reasonable air entry. No wheeze or rhonchus. CARDIAC EXAM: Distant but regular. Peripheral pulses are diminished, but palpable. There is at least 2+ edema throughout. ABDOMEN: Obese, soft, with active bowel sounds. There is purulent drainage around his gastrostomy (G) tube. EXTREMITIES: Show no obvious cyanosis or clubbing. NEUROLOGICALLY: He does respond to voice and moves all extremities. LABORATORY DATA: Repeat chemistries show sodium 140, potassium 5.4, chloride 104, CO2 31, BUN 136, creatinine unchanged at 2.60, glucose of 259. THE MOST PRESSING PROBLEMS REQUIRING MY PRESENCE AT THE BEDSIDE: 1. Respiratory acidosis. 2. Hypoxemic respiratory failure, acute on chronic. 3. Recurrent lung cancer. 4. Drop lesion from head and neck cancer. 5. Stage IV carcinoma of the larynx. 6. Renal failure. 7. Hemoptysis secondary to the above. PLAN: At this point, we await the arrival of Dr. Munoz to change him to a cuffed trach tube. Hopefully, that will improve his situation even more. At the moment, we are at least able to temporize and he has improved his overall blood gasses and respiratory status, despite losing volumes. The issue as well is his drop lesion and hemoptysis. There has been some difficulties with suctioning for fears of worsening his hemoptysis. Certainly, with better volumes and the addition of reasonable PEEP, we may do better in controlling that as well. At this point, we will proceed as outlined above. I left the bedside at 1848 hours. Thirty-eight minutes of critical care time was spent at the bedside, not including any procedures.
[2021-03-28] MEDS: NYSTATIN 100,000 UNITS/GM TOPICAL PWD 15 GM TOP SCH (21:21)
[2021-03-29] VITALS (23 sets, daily range): BP systolic 94–145; BP diastolic 51–87; O2SAT 99
[2021-03-29] MEDS: NYSTATIN 500,000 U/5 ML SUSP UDC SSP SCH ×4 (01:23→17:49)
[2021-03-29] MEDS: HumaLOG INSULIN (NovoLOG) PER UNIT SC SCH ×4 (01:23→17:49)
[2021-03-29] MEDS: IPRATROPIUM 0.5MG/ALBUTEROL 2.5MG INH SOL UD 3ML (DUONEB) NEB SCH ×6 (04:00→20:13)
[2021-03-29 05:57] LABS: ABG BASE EXCESS 1.8 (-2.0-2.0); ABG HCO3 25.9 MEQ/L (22.0-26.0); ABG PARTIAL PRESSURE CO2 38.5 mmHg (35.0-45.0); ABG PARTIAL PRESSURE O2 95.3 mmHg (75.0-100.0); ABG STANDARD HCO3 26.1 MEQ/L (22.0-26.0); ABG pH (ARTERIAL) 7.445 UNITS (7.350-7.450)
[2021-03-29 06:07] LABS: BASO # 0.1 10^3/uL (0.0-0.2); BASO % 0.5 % (0.0-1.0); EOS # 0.6 10^3/uL (0.0-0.5); EOS % 4.2 % (0.0-3.0); HEMATOCRIT 29.7 % (42.0-52.0); HEMOGLOBIN 9.5 g/dl (13.5-17.5); LYMPH % 6.7 % (24.0-44.0); MEAN CORPUSCULAR HEMOGLOBIN 33.6 pg (27.0-33.0); MEAN CORPUSCULAR VOLUME 104.9 fl (80.0-96.0); MONO # 0.9 10^3/uL (0.0-0.8); MONO % 6.2 % (2.0-8.0); NEUTROPHILS # 11.9 10^3/uL (1.5-8.5); NEUTROPHILS % 78.4 % (36.0-66.0); PLATELET COUNT, AUTOMATED 283 10^3/uL (150-450); RED BLOOD COUNT 2.83 10^6/uL (4.30-6.10); WHITE BLOOD COUNT 15.2 10^3/uL (4.0-10.0)
[2021-03-29 06:43] LABS: ALBUMIN 1.4 GM/DL (3.2-5.2); BILIRUBIN,TOTAL 0.2 MG/DL (0.2-1.0); CALCIUM LEVEL 8.5 MG/DL (8.8-10.2); CREATININE FOR GFR 2.68 MG/DL (0.70-1.30); GLOMERULAR FILTRATION RATE 25.1 (>42); PHOSPHORUS LEVEL 3.5 MG/DL (2.5-4.9); POTASSIUM SERUM 4.8 MEQ/L (3.5-5.1); TOTAL PROTEIN 5.3 GM/DL (6.4-8.2)
[2021-03-29] MEDS: ACETYLCYSTEINE 20% 4 ML VIAL (200MG/ML) INH SCH ×2 (07:26→20:13)
--- NOTE | 2021-03-29 07:53 | IPNPDOC ---
Text Note Date of Service The patient was seen on 03/29/21. NOTE S: Pt seen at bedside. He is asleep and unarousable. Spoke w/ nurse who tells me ENT, Dr. Munoz placed cuffed trach in overnight and pt has tolerated it well. Doing well on CPAP. Pt has bloody thick mucous secretions which have been managed w/ suctioning up to the trach. Pt has also been coughing up these secretions. No additional concerns or complications. O: GEN: laying in bed, asleep, trach in place w/ vent, NAD HEENT: NC/AT, nares patent, dry mucous membranes CARDIO: normal heart sounds, RRR, no MRG PULM: CTA b/l, no WRR ABD: normal BS, soft, nondistended : riddle catheter in place w/out hematuria SKIN: PEG site clean and w/out signs of infxn; trach site clean w/ min bleeding and no signs of infxn; lower abd bruising from heparin SQ; allevyn bandage on RLE overlying blister, intact, clean IMAGING: Right lung main bronchus, bronchoscopic biopsy: Mainly degenerated inflammatory debris/acute inflammatory cells and entrapped small cluster of highly atypical squamous cells is noted, suspicious for non- small cell carcinoma. Immunostains for TTF-1, P40 and CK7 were performed. The small atypical cluster is positive for P40(squamous cell stain), and negative for TTF-1 but CK7 is non- contributory as the small cluster disappears. CXR 03/26: Right base markings appear to be improved. Right upper lobe infiltrate persists. Tracheostomy tube in place. CXR 03/28/21: No new infiltrate. Tracheostomy tube remains in place A/P: 70M PMH CKDIV, metastatic CA w/ non small cell lung CA complicated by hemoptysis and PNA, on linezolid day5 and cefepime day4, w/ unchanging status. 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 De Leon 11/2020 Pathology positive for moderately differentiated SCC with positive margins Patient had refused systemic chemotherapy at the recommendation of radiation oncology Followed by [facility] ENT on consult; Dr. Anaya; ENT - Dr. Munoz had arrived to change trach to cuffed trach for ventilation on 03/28 #CKD IV- stable BUN/Cr at baseline Diet low protein and high water content Riddle catheter in place #PEG site infxn; improving Wound cx +MRSA, +Enterobacter cloacae CRE On Linezolid day5, Cefepime day4 Followed by ID #Trach site infxn- improving On Linezolid day5, Cefepime, day4 Followed by ID #+MRSA, +Enterobacter cloacae CRE VIP status #Fungal infxn abd folds On Nystatin ointment #HTN BP well controlled On Amlodipine #PAF Rate remains controlled On Sotalol Eliquis held due to hemoptysis #HLD On Atorvastatin #GERD On Famotidine #DM2- improved control On Levemir, Insulin SS Continue to monitor #DVT prophylaxis Heparin BID- monitor for hemoptysis Bedrest PEG tube feeds- low protein, high water content DISPO: subacute rehab, pending clinical improvement VS,Nick, I+O VS, Nick, I+O Laboratory Tests 03/28/21 18:01 03/29/21 05:46 Vital Signs Date Time Temp Pulse Resp B/P (MAP) Pulse Ox O2 Delivery O2 Flow Rate FiO2 03/29/21 07:27 58 18 99 50 03/29/21 06:00 112/69 (83) Ventilator 03/29/21 04:00 98.3 03/27/21 05:00 8.0 I&O- Last 24 Hours up to 6 AM 03/29/21 06:00 Intake Total 2250 ml Output Total 1875 ml Balance 375 ml GME ATTESTATION GME ATTESTATION My faculty preceptor for this patient encounter was physically present during the encounter and was fully available. All aspects of the patient interview, examination, medical decision making process, and medical care plan development were reviewed and approved by the faculty preceptor. The faculty preceptor is aware and concurs with the plan as stated in the body of this note and will attest to such by his/her cosignature. ATTENDING NOTE I, Steffen Gomez, have independently examined this patient and performed my own physical exam, as well as reviewed the documentation and edited where necessary. I have discussed in detail with the resident / student the findings and plan of treatment as documented by the resident / student and edited their note. I agree with their findings and treatment plan and have edited their documentation. I will continue to follow the patient during this hospital stay. Gloria Thompson DO Mar 29, 2021 07:53 STEFFEN GOMEZ MD Mar 29, 2021 12:16
[2021-03-29] MEDS: diphenhydrAMINE 50MG/ML VIAL (J1200) IV SCH ×2 (09:07→19:47)
[2021-03-29] MEDS: amLODIPine 5 MG TAB GT SCH (09:10)
[2021-03-29] MEDS: CEFEPIME HCL 2 GM in D5W MINI-BAG PLUS 50 ML IV SCH ×2 (09:10→20:26)
[2021-03-29] MEDS: allopurinoL 100 MG TAB GT SCH (09:11)
[2021-03-29] MEDS: FOLIC ACID 1 MG TAB GT SCH (09:11)
[2021-03-29] MEDS: FAMOTIDINE 20 MG TAB GT SCH ×2 (09:12→21:25)
[2021-03-29] MEDS: LINEZOLID 600MG TABLET (ZYVOX) JT SCH ×2 (09:13→21:25)
[2021-03-29] MEDS: HEPARIN SOD (PORCINE) 5000UNITS/ML 1ML VIAL/SYRINGE SQ SCH ×2 (09:13→21:26)
[2021-03-29] MEDS: SOTALOL 40MG PER 1/2 TABLET PO SCH ×2 (09:14→21:00)
[2021-03-29] MEDS: SOTALOL HCL 80 MG TAB GT SCH ×2 (09:16→21:00)
[2021-03-29] MEDS: NYSTATIN 100,000 UNITS/GM TOPICAL PWD 15 GM TOP SCH ×2 (09:18→21:27)
[2021-03-29] MEDS: FLUTICASONE PROP 0.05% NASAL SPRAY 16 GM (FLONASE) NARES SCH ×2 (09:18→21:27)
[2021-03-29] MEDS: ATORVASTATIN 20 MG TAB GT SCH (09:23)
[2021-03-29] MEDS: LEVEMIR (INSULIN DETEMIR) 1 UNITS/0.01ML SC SCH ×2 (09:23→21:33)
--- NOTE | 2021-03-29 09:31 | IPN ---
PROGRESS NOTE DATE: 03/28/2021 Mr. Carcamo seems to be exhausted. He is being transferred from progressive care unit (PCU) to [facility]. He was seen in consultation with Dr. Pritchett. Patient had biopsy of the right mainstem lesion, which was positive for carcinoma. Dr. 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 Patient is waiting for radiation therapy but not until his infection and poor respiratory status improve. The patient needs to be mobilized and probably would benefit from rehabilitation first. Secretions have markedly decreased. He has had no fever or chills. He does not have any recurrent hemoptysis, but we have not allowed suctioning. Temperature is 97.8, pulse 78, respirations 24, oxygen saturation 90% on a trach collar with an FiO2 of 35%. HEART: Normal S1, S2, distant. LUNGS: Diminished breath sounds at the bases. ABDOMEN: Morbidly obese, soft, nontender. G tube in place with slight erythema. No significant discharge around the G tube. EXTREMITIES: Pitting edema +1. LABORATORY DATA: White count is 17, down from 24, hemoglobin 10, hematocrit 30.9, platelets 308, 77% neutrophils, 6% lymphocytes, 7% monocytes. Sodium 140, potassium 4.8, chloride 104, bicarbonate 29, BUN 141, creatinine 2.58, glucose 163, calcium 8.4, phosphorus 3.3. AST 53, ALT 66, alkaline phosphatase 217. Culture from the abdomen and both bronchial washings are positive for methicillin-resistant Staphylococcus aureus (MRSA) and carbapenem-resistant Enterobacteriaceae (CRE). CRE is sensitive to Bactrim and cefepime. MRSA is sensitive to Bactrim, vancomycin, tigecycline, minocycline, linezolid. MEDICATIONS: - cefepime 2 grams intravenous (IV) every 12 hours - linezolid 600 mg through G tube twice a day, currently day #4, started on March 25 IMPRESSION: 1. Methicillin-resistant Staphylococcus aureus (MRSA), carbapenem-resistant Enterobacteriaceae pneumonia. Patient is on IV cefepime and linezolid. The patient clinically has improved. G tube abdominal wall cellulitis with irritated G tube with culture positive for CRE and MRSA, on similar antibiotics. Purulent secretions have decreased. 2. Hemoptysis has resolved. 3. Pharyngeal cancer with extensive disease. Patient awaiting radiation therapy until once infection has improved. PLAN: Continue treatment with IV cefepime and linezolid for a total of 10 days. At least until April 04 if clinically improving with normal white count and clinical status. He may need up to 14 days but for the time being will plan for 10 days of treatment with combination cefepime and linezolid. Ideally we should use a combination for carbapenem-resistant Enterobacteriaceae, and another option would be to add sulfa, but with his BUN and creatinine being quite elevated and him not being a candidate for dialysis, I would avoid using sulfa drugs. MTDD
--- NOTE | 2021-03-29 10:04 | IPN ---
PROGRESS NOTE DATE: 03/29/2021 SUBJECTIVE: I again attended Tre Carcamo here in the Intensive Care Unit. Patient has been examined and chart reviewed. He has been on pressure support ventilation overnight. He is quite comfortable. I appreciate Dr. Munoz' assistance in getting a cuff Shiley in the patient last evening. T-max overnight 98.3, blood pressure 107 to 120 systolic, heart rate generally in the 50s to 60s. Ins and outs midnight to midnight: 1700 ml in with 2200 ml out. Most recent arterial blood gas done on pressure support of 10, PEEP of 5, FIO2 of 50%. Has a pH of 7.445, pCO2 of 38.5 and pO2 of 95.3 with a saturation of 98%. White blood cell count 15.2, hemoglobin is 9.5, platelet count is 283,000, 78% segs, no bands. Sodium 142, potassium 4.8, chloride 106, CO2 29, BUN of 140, creatinine of 2.68. Glucose of 154. OBJECTIVE: He is sedate but arousable. Pupils do react, sclera are clear. Trach site is less erythematous. There is still significant secretions and he is generally able to cough those up. Chest shows diminished but symmetric expansion, some rhonchi that clear with cough and suctioning. Fine dependent crackles are noted bilaterally. Cardiac exam: Distant but regular. Peripheral pulses are diminished but palpable. Edema is unchanged. Abdomen is obese, soft with active bowel sounds. There is still some mild purulent drainage around his G-tube. Extremities shows no cyanosis or clubbing. Neurologically, he is sedate but does move all extremities. All available cultures have been reviewed. He remains on Cefepime with Nystatin powder and Zyvox. DuoNeb remains in place. The most pressing problems requiring my presence at the bedside are respiratory failure, both hypoxemic and hypercapnic. Malclearance of secretions. Previous non-small cell lung cancer. New drop lesion from head and neck cancer. Stage IV squamous cell carcinoma of the larynx. Status post trach and PEG. Infection with MRSA and Enterobacter cloacae. Renal failure. RECOMMENDATIONS: At this point we will try him on a trach collar. I do believe some difficulty with secretions was part of his issue yesterday. His mental status is also hampered by his degree of azotemia. This is being addressed through the primary service and nephrology. At this point we will proceed as outlined. We will check a blood gas an hour after he is on a trach collar. Until the remainder of his issues are improved, he may require ventilator support especially at night. He is able to have at least some suctioning of his trach but we are avoiding deep suctioning in view of his lesion within the right mainstem. I appreciate the input as well of Radiation Oncology. My hope is that if he is able to remain off the ventilator we can at least begin treatment with radiation therapy but that will certainly be at the discretion of Dr. Núñez. Proceed as outlined above. Further recommendations will be made in the progress record as new information becomes available. MTDD
[2021-03-29 10:43] LABS: ABG BASE EXCESS 2.7 (-2.0-2.0); ABG HCO3 26.7 MEQ/L (22.0-26.0); ABG O2 SATURATION 94.3 % (95.0-99.0); ABG PARTIAL PRESSURE O2 60.7 mmHg (75.0-100.0); ABG STANDARD HCO3 26.8 MEQ/L (22.0-26.0); ABG TOTAL CO2 27.9 MEQ/L (23.0-31.0); ABG pH (ARTERIAL) 7.454 UNITS (7.350-7.450)
[2021-03-29] MEDS: ACETAMINOPHEN TAB 650MG DOSE (2X325MG) PO PRN (14:02)
--- NOTE | 2021-03-29 19:59 | IPN ---
NEPHROLOGY PROGRESS NOTE DATE: 03/29/2021 SUBJECTIVE: Mr. Carcamo is seen and examined this morning in the Intensive Care Unit working with the physical therapist. He is sitting up at the edge of the bed with the legs dangling. He is following simple commands. He remains afebrile and hemodynamically stable on 40% trach collar at the time of my visit. He was able to follow simple commands. I asked him if he understood that he has advanced chronic kidney disease on the basis of his senior living outpatient nephrology follow up and he nodded "yes" and when I asked him if he developed dialysis needs if he would want dialysis and he shook his head "no" and mouthed "no dialysis". OBJECTIVE: PHYSICAL EXAMINATION: VITAL SIGNS: Temperature 98.2, pulse 57, respiratory rate 16, blood pressure 145/66, saturating 97% on 40% trach collar. INTAKE AND OUTPUT: Intake yesterday was 1.7 liters. Urine output yesterday was 2.2 liters, net negative 500 mL. Weight in the bed scale today is 121 kg. GENERAL APPEARANCE: The patient was seen sitting up at the edge of the bed the legs dangling with the therapist at the bedside. He makes eye contacts, follows simple commands. When I asked him to hold up two fingers, he held up two fingers. Status - tracheostomy, nasal cannula in place, has a central line in the left subclavian. HEART: Regular, S1, S2. There was no pericardial friction rubs. LUNGS: Symmetric breath sounds. No rales. ABDOMEN: Soft. There is a chest tube in place. GENITOURINARY: Haji catheter. EXTREMITIES: Chronic venous stasis changes and 1-2+ leg edema. NEUROLOGICAL: The patient communicates by mouthing words. He followed simple commands. He mouthed his name for me. He mouthed the year "2020" and he was cooperative with the physical exam. LABORATORY STUDIES: White count 15.2, hemoglobin 9.5, platelet count 283. Sodium 142, potassium 4.8, bicarbonate 29, BUN 140, creatinine 2.6, phosphorous 3.5, albumin 1.4. CURRENT INPATIENT MEDICATIONS: The patient's medications were reviewed by myself. He continues on IV Cefepime along with Zyvox. His remainder medications are all unchanged as compared to yesterday. PROBLEMS: 1. Chronic kidney disease stage 4 with blood urea nitrogen of around 140 at least for the past one month and stable at that level with a known baseline creatinine of 2.5. The patient's electrolytes, volume status and acid base status are all acceptable. There is of course an obstacle in communication with him being nonverbal, but I do not find him to be uremic. He is able to cooperative with the exam, follows simple commands and mouths answers to simple questions. There is no indication for dialysis at present and he is a poor candidate for dialysis, given his frail state along with metastatic cancer, status PEG and status trach. The patient also did mouth to me that he did not want dialysis in the future and his also indicated that the apparently had expressed a similar feeling when he was seen in the outpatient nephrology office with his primary Manufacturing Team Member, Dr. Plummer. We will continue with general supportive care of his chronic renal failure. I made no medication changes today. I am hopeful that BUN will improve w/ increased free water through PEG 2. Hyperkalemia his tube feeds are low potassium and his potassium level is only intermittently and mildly elevated. Today he is normal kalemic. 3. Hypertension He continues on Amlodipine and Sotalol with stable blood pressure. 4. Hypermagnesemia he is not receiving any magnesium containing compounds. Magnesium has been in the low 3's the entire duration of his hospitalization thus far. 5. Localized edema there is no echocardiogram in the [facility] system. His oxygen requirements are stable. Chest x-ray yesterday did not show any sign of pulmonary edema. He has not been on diuretic therapy. 6. Hyperosmolality last serum osmolality was around 345 on March 27 and is probably similar at present. He continues on free water through the PEG tube. I am not going to increase the free water at this time given he does have some chronic leg edema which is likely also related to his low albumin. 7. Hypoalbuminemia he is not suitable for high protein at this time because of high blood urea nitrogen. MTDD
[2021-03-30] VITALS (18 sets, daily range): BP systolic 90–116; BP diastolic 51–82
[2021-03-30] MEDS: NYSTATIN 500,000 U/5 ML SUSP UDC SSP SCH ×5 (00:12→23:59)
[2021-03-30] MEDS: HumaLOG INSULIN (NovoLOG) PER UNIT SC SCH ×4 (00:13→17:53)
[2021-03-30] MEDS: IPRATROPIUM 0.5MG/ALBUTEROL 2.5MG INH SOL UD 3ML (DUONEB) NEB SCH ×6 (04:32→19:32)
[2021-03-30 06:25] LABS: BASO # 0.1 10^3/uL (0.0-0.2); BASO % 0.6 % (0.0-1.0); EOS # 0.7 10^3/uL (0.0-0.5); EOS % 4.8 % (0.0-3.0); HEMATOCRIT 29.2 % (42.0-52.0); HEMOGLOBIN 9.5 g/dl (13.5-17.5); LYMPH % 6.6 % (24.0-44.0); MEAN CORPUSCULAR HEMOGLOBIN 33.9 pg (27.0-33.0); MEAN CORPUSCULAR HGB CONC 32.5 g/dl (32.0-36.5); MEAN CORPUSCULAR VOLUME 104.3 fl (80.0-96.0); MONO # 0.8 10^3/uL (0.0-0.8); MONO % 5.6 % (2.0-8.0); NEUTROPHILS # 11.8 10^3/uL (1.5-8.5); NEUTROPHILS % 79.7 % (36.0-66.0); PLATELET COUNT, AUTOMATED 286 10^3/uL (150-450); WHITE BLOOD COUNT 14.7 10^3/uL (4.0-10.0)
[2021-03-30 06:36] LABS: BLOOD UREA NITROGEN 146 MG/DL (7-18); CALCIUM LEVEL 8.5 MG/DL (8.8-10.2); CARBON DIOXIDE LEVEL 29 MEQ/L (21-32); CHLORIDE LEVEL 108 MEQ/L (98-107); CREATININE FOR GFR 2.76 MG/DL (0.70-1.30); GLOMERULAR FILTRATION RATE 24.3 (>42); GLUCOSE, FASTING 107 MG/DL (70-100); POTASSIUM SERUM 4.8 MEQ/L (3.5-5.1); SODIUM LEVEL 142 MEQ/L (136-145)
[2021-03-30] MEDS: ACETYLCYSTEINE 20% 4 ML VIAL (200MG/ML) INH SCH ×2 (07:56→19:32)
[2021-03-30] MEDS: diphenhydrAMINE 50MG/ML VIAL (J1200) IV SCH ×2 (08:01→19:37)
[2021-03-30] MEDS: SOTALOL HCL 80 MG TAB GT SCH ×2 (08:21→21:00)
[2021-03-30] MEDS: SOTALOL 40MG PER 1/2 TABLET PO SCH ×2 (08:22→21:00)
[2021-03-30] MEDS: CEFEPIME HCL 2 GM in D5W MINI-BAG PLUS 50 ML IV SCH ×2 (08:35→20:30)
[2021-03-30] MEDS: LINEZOLID 600MG TABLET (ZYVOX) JT SCH ×2 (08:36→20:30)
[2021-03-30] MEDS: FAMOTIDINE 20 MG TAB GT SCH ×2 (08:36→20:30)
[2021-03-30] MEDS: ATORVASTATIN 20 MG TAB GT SCH (08:37)
[2021-03-30] MEDS: amLODIPine 5 MG TAB GT SCH (08:37)
[2021-03-30] MEDS: FOLIC ACID 1 MG TAB GT SCH (08:37)
[2021-03-30] MEDS: allopurinoL 100 MG TAB GT SCH (08:37)
[2021-03-30] MEDS: LEVEMIR (INSULIN DETEMIR) 1 UNITS/0.01ML SC SCH ×2 (08:38→21:03)
[2021-03-30] MEDS: HEPARIN SOD (PORCINE) 5000UNITS/ML 1ML VIAL/SYRINGE SQ SCH ×2 (08:38→20:30)
[2021-03-30] MEDS: NYSTATIN 100,000 UNITS/GM TOPICAL PWD 15 GM TOP SCH ×2 (08:40→20:31)
[2021-03-30] MEDS: FLUTICASONE PROP 0.05% NASAL SPRAY 16 GM (FLONASE) NARES SCH ×2 (08:40→20:31)
[2021-03-30 09:12] LABS: ABG BASE EXCESS 1.9 (-2.0-2.0); ABG O2 SATURATION 97.1 % (95.0-99.0); ABG PARTIAL PRESSURE CO2 38.4 mmHg (35.0-45.0); ABG PARTIAL PRESSURE O2 79.5 mmHg (75.0-100.0); ABG STANDARD HCO3 26.2 MEQ/L (22.0-26.0); ABG TOTAL CO2 27.1 MEQ/L (23.0-31.0); ABG pH (ARTERIAL) 7.448 UNITS (7.350-7.450)
--- NOTE | 2021-03-30 09:32 | IPN ---
PULMONARY CRITICAL CARE PROGRESS NOTE DATE: 03/30/2021 SUBJECTIVE: Again, attended Tre Carcamo here in the Intensive Care Unit. The patient's been examined and the chart reviewed. He has been on a trach collar since yesterday morning. Today is awake, alert, much more interactive and does answer questions appropriately. OBJECTIVE: PHYSICAL EXAMINATION: VITAL SIGNS: T-max overnight 98.2, blood pressure 90-112 systolic, heart rate generally in the 50's and 60's, respiratory rate between 18 and 22 without accessory muscle use. INTAKE AND OUTPUT: 2,680 mL in with 1,480 mL out. GENERAL APPEARANCE: He is lying in bed fairly comfortably. HEENT: Pupils are axillary clear. NECK: Trach site is reasonably clean and dry, much less erythema of the neck today. CHEST: Markedly diminished but symmetric expansion. There are dependent crackles. There are some occasional large airway rhonchi. He does clear these with coughing. No convincing rubs. HEART: Distant but regular. Peripheral pulses diminished and I believe are palpable. His edema is unchanged. ABDOMEN: Obese, soft with active bowel sounds. A little less drainage around the G-tube today. EXTREMITIES: No cyanosis or clubbing. NEUROLOGICAL: He is interactive and appropriate. He moves all extremities. LABORATORY STUDIES: Arterial blood gas is pending. White blood cell count 14.7, hemoglobin 9.5, platelet count 286,000, 09.7% segs, no bands. Sodium 142, K 4.8, chloride 108, CO2 29, BUN 146, creatinine 2.76. IMPRESSION: 1. [id number] respiratory failure with hypoxemic and hypercapnic. 2. Non small cell cancer of the lung partially treated. 3. 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 4. Hemoptysis secondary to the above. 5. Underlying obstructive lung disease. 6. Renal failure. RECOMMENDATIONS: At this point he has been able to be maintained off mechanical ventilatory support. He has had better movement of secretions. I do believe secretion clearance was an issue for him. 1. We will check and arterial blood gas. If that is acceptable, then I am in agreement with moving him to the Progressive Care Unit. 2. We await the beginning of therapy for his drop lesion which is the cause of his hemoptysis. Hopefully that will begin on Thursday. 3. At this point we will continue his current antimicrobials as he did grow both Enterobacter Cloacae as well as MRSA. 4. IV fluids/hydration and nutrition are being managed by the Primary Service. 5. I am in agreement with his current antimicrobials. Ulcer and DVT prophylaxis are in place. Further recommendations will be made on the progress. Recommendations will be made as new information becomes available. CATRACHO
--- NOTE | 2021-03-30 09:38 | ECGEPIP ---
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 More ST/T abnormalities now noted Electronically Signed on 03-30-2021 9:37:49 EDT by Festus Yuen
--- NOTE | 2021-03-30 11:49 | CR.PDOC ---
General Date of Consultation: Mar 30, 2021 Referring Provider: HERNANDEZ GUEVARA MD @ Consultation REASON FOR CONSULTATION/CHIEF COMPLAINT: Permacath Placement Full consult will follow. Asked to place tunneled dialysis catheter with renal failure. However, patient actively has elevated WBC and MRSA in bronchial wash ings and abdominal wound culture. It is not advisable to place a tunneled catheter at this time. Recommend continue IV Abx, obtain negative blood cultures and when WBC is within normal limits with negative blood cultures. Once that is achieved, will place tunneled dialysis catheter. Recommend te mporary Shiley catheter for dialysis until then. Discussed with Dr. Guevara. Vital Signs/I&O Vital Signs Date Time Temp Pulse Resp B/P (MAP) Pulse Ox O2 Delivery O2 Flow Rate FiO2 03/30/21 10:00 60 24 114/56 (75) 94 Trach Collar 40 03/30/21 08:00 97.6 03/29/21 09:25 10.0 I&O- Last 24 Hours up to 6 AM 03/30/21 06:00 Intake Total 2130 ml Output Total 1520 ml Balance 610 ml Laboratory Data Labs 24H Laboratory Tests 2 03/29/21 12:09: Bedside Glucose (Misc Panel) 216H 03/29/21 17:44: Bedside Glucose (Misc Panel) 109 03/29/21 21:29: Bedside Glucose (Misc Panel) 93 03/30/21 00:09: Bedside Glucose (Misc Panel) 112H 03/30/21 06:04: Anion Gap 5L, Glomerular Filtration Rate 24.3L, Calcium Level 8.5L 03/30/21 06:05: Immature Granulocyte % (Auto) 2.7, Neutrophils (%) (Auto) 79.7H, Lymphocytes (%) (Auto) 6.6L, Monocytes (%) (Auto) 5.6, Eosinophils (%) (Auto) 4.8H, Basophils (%) (Auto) 0.6, Neutrophils # (Auto) 11.8H, Lymphocytes # (Auto) 1.0L, Monocytes # (Auto) 0.8, Eosinophils # (Auto) 0.7H, Basophils # (Auto) 0.1, Nucleated Red Blood Cells % (auto) 0.1H 03/30/21 06:22: Bedside Glucose (Misc Panel) 103 03/30/21 08:57: Blood Gas Bicarbonate Standard 26.2H, Arterial Blood pH 7.448, Arterial Blood Partial Pressure CO2 38.4, Arterial Blood Partial Pressure O2 79.5, Arterial Blood Total CO2 27.1, Arterial Blood HCO3 26.0, Arterial Blood Base Excess 1.9, Arterial Blood Oxygen Saturation 97.1 CBC/BMP Laboratory Tests 03/30/21 06:04 03/30/21 06:05 Microbiology Microbiology 03/24/21 Bronchial Lantry Culture - Final, Complete Staph.aureus Methicillin Resis Enterobacter Cloacae Cre 03/24/21 Gram Stain - Final, Complete 03/24/21 Bronchial Aspirate Culture - Final, Complete Staph.aureus Methicillin Resis Enterobacter Cloacae Cre 03/23/21 Gram Stain - Final, Complete 03/23/21 Wound Culture - Final, Complete Enterobacter Cloacae Cre Staph.aureus Methicillin Resis 03/20/21 Blood Culture - Final, Complete NO GROWTH AFTER 5 DAYS 03/20/21 Urine Culture - Final, Complete 03/20/21 Blood Culture - Final, Complete NO GROWTH AFTER 5 DAYS Allergies Coded Allergies: Penicillins (Verified Allergy, Severe, 02/26/21) Sulfa (Sulfonamide Antibiotics) (Verified Allergy, Mild, 02/26/21) Itching Home Medications Scheduled Allopurinol (Allopurinol) 100 Mg Tablet, 200 MG GT DAILY, (Reported) Amlodipine Besylate (Amlodipine Besylate) 5 Mg Tablet, 5 MG GT DAILY, (Reported) Apixaban (Eliquis) 5 Mg Tablet, 5 MG GT BID, (Reported) Atorvastatin Calcium (Atorvastatin Calcium) 20 Mg Tablet, 20 MG GT DAILY, (Reported) Famotidine (Famotidine) 20 Mg Tablet, 20 MG GT BID, (Reported) Folic Acid (Folic Acid) 1 Mg Tablet, 1 MG GT DAILY, (Reported) Insulin Detemir (Levemir Flextouch) 100 Unit/1 Ml Insuln.pen, 30 UNIT SC DAILY, (Reported) Insulin Lispro (Humalog Kwikpen U-100) 100 Unit/1 Ml Insuln.pen, 1 DOSE SC AC, (Reported) PER SLIDING SCALE Nystatin (Nystatin) 15 Gm Oint...g., 1 APLCT TOP QID, (Reported) APPLY TO FOLDS Sotalol HCl (Sotalol) 120 Mg Tablet, 120 MG GT BID, (Reported) Torsemide (Torsemide) 20 Mg Tablet, 20 MG GT BID, (Reported) Scheduled PRN Albuterol Sulf (Albuterol Sulfate) 2.5 Mg/3 Ml Vial.neb, 2.5 MG INH Q6H PRN for SOB/WHEEZING, (Reported) GERALDO MUNGUIA MD Mar 30, 2021 11:49
--- NOTE | 2021-03-30 12:27 | IPNPDOC ---
Text Note Date of Service The patient was seen on 03/30/21. NOTE S: Pt seen at bedside. Reports headache, generalized skin itchiness. No new rashes. No additional concerns or complaints. O: GEN: laying in bed, awake and alert, trach collar in place, NAD HEENT: NC/AT, nares patent, dry mucous membranes CARDIO: normal heart sounds, RRR, no MRG PULM: CTA b/l, no WRR ABD: normal BS, soft, nondistended : riddle catheter in place w/out hematuria SKIN: generalized dry skin; PEG site clean and w/out signs of infxn; trach site clean w/ min bleeding and no signs of infxn; lower abd bruising from heparin SQ; allevyn bandage on RLE overlying blister, intact, clean; no new blisters/rashes IMAGING: Right lung main bronchus, bronchoscopic biopsy: Mainly degenerated inflammatory debris/acute inflammatory cells and entrapped small cluster of highly atypical squamous cells is noted, suspicious for non- small cell carcinoma. Immunostains for TTF-1, P40 and CK7 were performed. The small atypical cluster is positive for P40(squamous cell stain), and negative for TTF-1 but CK7 is non- contributory as the small cluster disappears. CXR 03/26: Right base markings appear to be improved. Right upper lobe infiltrate persists. Tracheostomy tube in place. CXR 03/28/21: No new infiltrate. Tracheostomy tube remains in place A/P: 70M PMH CKDIV, metastatic CA w/ non small cell lung CA complicated PNA, on linezolid day6/10 and cefepime day510, w/ worsening kidney fxn requiring dialysis. s/p Acute metabolic encephalopathy - likely 2/2 hypercarbia, possibly 2/2 uremia - Currently mentation has improved; oriented - No focal deficits - s/p Hypercarbia - Discussed with Nephrology - plan for dialysis tomorrow s/p Hypercarbic respiratory failure - possibly 2/2 inability to clear secretions - ABG noted - Imaging noted above - s/p Positive pressure ventilation - Will continue with careful suctioning given recent hemoptysis form drop lesion #RLL PNA- improving - Hemodynamically stable / Afebrile - Leukocytosis improving Bronchial washing cx + MRSA, +Enterobacter cloacae CRE On Linezolid day 6/10 On Cefepime day 510 - ID and Pulmonology on consultation; appreciate their input #PEG site infxn; improving Wound cx +MRSA, +Enterobacter cloacae CRE On Linezolid day6/10, Cefepime day510 Followed by ID #Trach site infxn- improving On Linezolid day6/10, Cefepime, day5/10 Followed by ID #+MRSA, +Enterobacter cloacae CRE VIP status ID on consult #Non-small cell lung CA in RUL Drop lesion improved w/ chemical cauterization 03/25/21 Right lung main bronchus bx +atypical squamous cells RLL bronchial brush cx +MRSA, +Enterobacter cloacae CRE Pt remains full code and wishes to pursue treatment, pending clinical improvement Followed by [facility] and pt discussion w/ regards to clinical expectations and goals of care #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 De Leon 11/2020 Pathology positive for moderately differentiated SCC with positive margins Patient had refused systemic chemotherapy at the recommendation of radiation oncology Followed by [facility] - ENT (Dr. Anaya) consulted; had evaluated initially; Subsequent ENT (Dr. Munoz) called to change trach to cuffed trach for ventilation on 03/28 #CKD IV [id number], Cr 2.76, GFR 24.3 Blood cx pending Diet low protein and high water content Riddle catheter in place Nephrology on consult; case discussed - will persue PermCath placement for Dialysis #Fungal infxn abd folds On Nystatin ointment #HTN BP well controlled On Amlodipine #Paroxysmal atrial fibrillation Rate remains controlled On Sotalol On Heparin SQ Off full anticoagulation (re: Hemoptysis) #DLP On Atorvastatin #DM2- improved control On Levemir, Insulin SS Continue to monitor #GERD On Famotidine #DVT prophylaxis Heparin BID- monitor for hemoptysis Bedrest PEG tube feeds- low protein, high water content DISPO: - Subacute rehab, pending clinical improvement VS,Fishbone, I+O VS, Fishbone, I+O Laboratory Tests 03/30/21 06:04 03/30/21 06:05 Vital Signs Date Time Temp Pulse Resp B/P (MAP) Pulse Ox O2 Delivery O2 Flow Rate FiO2 03/30/21 10:00 60 24 114/56 (75) 94 Trach Collar 40 03/30/21 08:00 97.6 03/29/21 09:25 10.0 I&O- Last 24 Hours up to 6 AM 03/30/21 06:00 Intake Total 2130 ml Output Total 1520 ml Balance 610 ml GME ATTESTATION GME ATTESTATION My faculty preceptor for this patient encounter was physically present during the encounter and was fully available. All aspects of the patient interview, examination, medical decision making process, and medical care plan development were reviewed and approved by the faculty preceptor. The faculty preceptor is aware and concurs with the plan as stated in the body of this note and will attest to such by his/her cosignature. ATTENDING NOTE I, Steffen Gomez, have independently examined this patient and performed my own physical exam, as well as reviewed the documentation and edited where necessary. I have discussed in detail with the resident / student the findings and plan of treatment as documented by the resident / student and edited their note. I agree with their findings and treatment plan and have edited their documentation. I will continue to follow the patient during this hospital stay. Gloria Thompson DO Mar 30, 2021 12:27 STEFFEN GOMEZ MD Mar 30, 2021 13:34
--- NOTE | 2021-03-30 15:10 | IPN ---
NEPHROLOGY PROGRESS NOTE DATE: 03/30/2021 SUBJECTIVE: Mr. Carcamo is seen this morning on his bedside in the intensive care unit. He is unable to speak; however, he is able to communicate with some difficulty while writing. Patient has known history of advanced chronic kidney disease and has developed superimposed acute renal failure. He was advised about dialysis yesterday; however, he declined it. He is currently being treated for tracheostomy site infection and sepsis. He is currently not on any pressors. He has acute on chronic respiratory failure and is currently on a trach collar. He has non-small cell cancer of the lung, which has been partially treated. He also has stage IV squamous cell carcinoma of the larynx and underwent laryngectomy. PHYSICAL EXAMINATION: Temperature 97.6 degrees Fahrenheit, heart rate 60 per minute, respiratory rate 24 per minute, blood pressure 114/56 mmHg, oxygen saturation 94% on trach collar with 40% FiO2. HEAD: Atraumatic. NECK: Neck veins cannot be assessed due to the presence of tracheostomy. HEART SOUNDS: Regular. LUNGS: Diminished breath sounds bilaterally. ABDOMEN: Obese and feeding tube is in place. He is receiving tube feedings. EXTREMITIES: Have chronic stasis changes. There is no cyanosis or clubbing. NEUROLOGIC: He is awake, tremulous and has some asterixis. LABORATORY DATA: Today's labs show sodium 142, potassium 4.8, CO2 29, BUN 146, creatinine 2.76, glucose 107, calcium 8.5. WBC 14.7, hemoglobin 9.5, hematocrit 29.2, platelets 286. PROBLEMS: 1. Acute renal failure superimposed on chronic kidney disease. I discussed with the patient and explained to him about his condition. He has known history of advanced chronic kidney disease and now he has uremic symptoms with asterixis and tremors. He could not even write and had great difficulty in writing his answers. I explained to him about the risk for worsening condition due to uremia and he did consent for dialysis. I have discussed with his primary care physician and requested a vascular surgery consultation for dialysis catheter placement. Dr. Gomez feels that patient has leukocytosis and should not get a Permacath placed. At this point, we will draw blood cultures again and consider Permacath placement within the next 24-48 hours. I would like to avoid a temporary catheter at all costs due to very high risk for infection. I feel that I would want to preserve his right internal jugular vein for Permacath. He has a triple lumen catheter on the left chest, which is being used for his medications and antibiotics. His electrolytes are stable and we can wait for at least 24 hours for dialysis. 2. Methicillin-resistant Staphylococcus aureus (MRSA) and Enterobacter infection on bronchial aspirate. Patient remains on Zyvox and cefepime. 3. Anemia. At present, his anemia is stable and does not need any urgent intervention. 4. Respiratory failure. Patient remains on trach collar and volume status seems reasonably well-compensated. I will hold off on any diuretic use at this point. All in all, his condition remains quite complicated and at risk for further complications. Will try to get the Permacath placed when his condition is optimized and then dialyze him as soon as the catheter gets placed.
[2021-03-31] VITALS (11 sets, daily range): BP systolic 111–130; BP diastolic 54–67
[2021-03-31] MEDS: IPRATROPIUM 0.5MG/ALBUTEROL 2.5MG INH SOL UD 3ML (DUONEB) NEB SCH ×6 (04:00→19:41)
[2021-03-31 05:39] LABS: BASO # 0.1 10^3/uL (0.0-0.2); BASO % 0.4 % (0.0-1.0); EOS # 0.7 10^3/uL (0.0-0.5); EOS % 4.9 % (0.0-3.0); HEMATOCRIT 29.2 % (42.0-52.0); HEMOGLOBIN 9.4 g/dl (13.5-17.5); LYMPH # 0.9 10^3/uL (1.5-5.0); LYMPH % 6.6 % (24.0-44.0); MEAN CORPUSCULAR HEMOGLOBIN 33.7 pg (27.0-33.0); MEAN CORPUSCULAR HGB CONC 32.2 g/dl (32.0-36.5); MEAN CORPUSCULAR VOLUME 104.7 fl (80.0-96.0); MONO # 0.9 10^3/uL (0.0-0.8); MONO % 6.3 % (2.0-8.0); NEUTROPHILS % 79.7 % (36.0-66.0); PLATELET COUNT, AUTOMATED 303 10^3/uL (150-450); RED BLOOD COUNT 2.79 10^6/uL (4.30-6.10); WHITE BLOOD COUNT 13.9 10^3/uL (4.0-10.0)
[2021-03-31 05:57] LABS: CALCIUM LEVEL 8.6 MG/DL (8.8-10.2); CREATININE FOR GFR 2.79 MG/DL (0.70-1.30); POTASSIUM SERUM 4.6 MEQ/L (3.5-5.1)
[2021-03-31] MEDS: HumaLOG INSULIN (NovoLOG) PER UNIT SC SCH ×5 (05:58→21:42)
[2021-03-31] MEDS: NYSTATIN 500,000 U/5 ML SUSP UDC SSP SCH ×4 (05:58→18:00)
[2021-03-31] MEDS: ACETYLCYSTEINE 20% 4 ML VIAL (200MG/ML) INH SCH ×2 (07:32→19:40)
[2021-03-31] MEDS: diphenhydrAMINE 50MG/ML VIAL (J1200) IV SCH ×2 (07:37→19:30)
[2021-03-31] MEDS: CEFEPIME HCL 2 GM in D5W MINI-BAG PLUS 50 ML IV SCH ×2 (07:57→20:59)
[2021-03-31] MEDS: SOTALOL HCL 80 MG TAB GT SCH ×2 (08:11→21:20)
[2021-03-31] MEDS: FOLIC ACID 1 MG TAB GT SCH (08:12)
[2021-03-31] MEDS: ATORVASTATIN 20 MG TAB GT SCH (08:12)
[2021-03-31] MEDS: FAMOTIDINE 20 MG TAB GT SCH ×2 (08:12→21:21)
[2021-03-31] MEDS: LINEZOLID 600MG TABLET (ZYVOX) JT SCH ×2 (08:12→21:19)
[2021-03-31] MEDS: SOTALOL 40MG PER 1/2 TABLET PO SCH ×2 (08:12→21:21)
[2021-03-31] MEDS: allopurinoL 100 MG TAB GT SCH (08:13)
[2021-03-31] MEDS: HEPARIN SOD (PORCINE) 5000UNITS/ML 1ML VIAL/SYRINGE SQ SCH ×2 (08:13→21:27)
[2021-03-31] MEDS: amLODIPine 5 MG TAB GT SCH (08:13)
[2021-03-31] MEDS: NYSTATIN 100,000 UNITS/GM TOPICAL PWD 15 GM TOP SCH ×2 (08:14→21:28)
[2021-03-31] MEDS: LEVEMIR (INSULIN DETEMIR) 1 UNITS/0.01ML SC SCH ×2 (08:14→21:27)
[2021-03-31] MEDS: FLUTICASONE PROP 0.05% NASAL SPRAY 16 GM (FLONASE) NARES SCH ×2 (08:14→21:28)
--- NOTE | 2021-03-31 08:28 | IPNPDOC ---
Text Note Date of Service The patient was seen on 03/31/21. NOTE Subjective: Patient is a 70-year-old male with a PMHx of A. fib (on Sotalol / eliquis), HTN, DLP, IDDM2, CKD3, Non-small cell lung CA (Reported to be in r emission), Laryngeal squamous cell CA (s/p Laryngectomy and tracheostomy) who presented to the emergency room with complaints of shortness of breath and infection around his throat. Patient was admitted to the hospital service for further evaluation and treatment ENT and infectious disease were called on consultation. Patient's hospital course is completed with hemoptysis which required bronchosc opy and revealed a drop lesion from his laryngeal squamous cell cancer; was cauterized. Patient was seen and examined at the bedside. Currently, patient was receiving chest PT denied any nausea, vomiting, abdominal pain. Reports that his breathing is doing relatively better. Objective: Vitals (See below) General: Lying in bed, no acute distress, comfortable, AAOx3 HEENT: NC, AT, +Trach CVS: +S1S2 Lungs: Fair air entry b/l, wheezing appreciated diffusely this morning, no rhonchi / crackles Abdomen: Soft, ND, NT, Obese, + PEG Extremities: 1+ pitting edema bilaterally Imaging / Biopsy: Renal US 03/20: Normal urinary tract sonography. CXR 03/21: 1. COPD with some bibasilar patchy infiltrates atelectasis, above the diaphragm on the right and medially in the retrocardiac zone on the left. Bilateral effusions noted. 2. No gross cardiomegaly or dolly edema. Prominence of pulmonary arteries centrally suggest pulmonary artery hypertension, likely on the basis of COPD. 3. New tracheostomy tube since the previous CT in August. Right lung main bronchus, bronchoscopic biopsy: Mainly degenerated inflammatory debris/acute inflammatory cells and entrapped small cluster of highly atypical squamous cells is noted, suspicious for non- small cell carcinoma. Immunostains for TTF-1, P40 and CK7 were performed. The small atypical cluster is positive for P40(squamous cell stain), and negative for TTF-1 but CK7 is non- contributory as the small cluster disappears. CXR 03/24: New infiltrate suspected in the right base consistent with pneumonia. Increased markings in the right apex are also noted. Borderline heart size and vascular congestion.. CXR 03/24: Left subclavian catheter in place. No evidence of pneumothorax. Right upper lobe infiltrate. Question right lower lobe. CXR 03/26: Right base markings appear to be improved. Right upper lobe infiltrate persists. Tracheostomy tube in place. CXR 03/28/21: No new infiltrate. Tracheostomy tube remains in place Assessment and plan: s/p Acute metabolic encephalopathy - likely 2/2 hypercarbia, possibly 2/2 uremia - Patient appears to be oriented without any focal deficits on physical exam - s/p Hypercarbia - (see below) s/p Hypercarbic respiratory failure - possibly 2/2 inability to clear secretions - ABG noted - Imaging noted above - s/p Positive pressure ventilation - c/w careful suctioning given recent hemoptysis form drop lesion - Pulmonology on consultation; appreciate their input Infection - likely 2/2 MRSA and Enterobacter Cloacae CRE pneumonia, AND throat infection, AND PEG tube site infection - Patient remains hemodynamically stable / Afebrile - Leukocytosis continues to down trend - Bronchial brushings 03/24: MRSA, Enterobacter Cloacae CRE - c/w Cefepime (Day #6) and Linezolid (Day #7) - c/w Chest PT / gentle suctioning - ID and Pulmonology on consultation; appreciate their input PEG tube infection - Abdomen culture 03/23: MRSA, Enterobacter Cloacae CRE - ID on consultation Trach infection - ENT and ID on consultation Hemoptysis - likely 2/2 drop lesion 2/2 squamous cell CA - Improved w/ chemical cauterization 03/25/21 - Hg has remained stable - Will continue to follow trend 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 De Leon 11/2020) - Based on documentation pathology positive for moderately differentiated SCC with positive margins - Patient had refused systemic chemotherapy at the recommendation of radiation oncology - Followed by [facility] - ENT (Dr. Anaya) consulted; had evaluated initially; Subsequent ENT (Dr. Munoz) called to change trach to cuffed trach for ventilation on 03/28 Non-small cell lung CA in RUL - Reported to have been in remission CKD4 - BUN has remained significantly elevated - Will avoid nephrotoxic medicatiosn - Nephrology called on consultation; likely dialysis once Vascular surgery placed PermCath - PermCath placement timing deferred to vascular surgery Intertrigo - c/w Nystatin HTN - BP well controlled - c/w Amlodipine with hold parameters Paroxysmal atrial fibrillation - Patient remains remains controlled - c/w rate / rythm control with Sotolol - Off full anticoagulation with Eliquis (re: Hemoptysis) DLP - c/w Atorvastatin IDDM2 - c/w ISS and Levemir GI prophylaxis - c/w Famotidine DVT prophylaxis - c/w Heparin SQ Disposition: - Awaiting clinical improvement - Will likely need rehab VS,Fishbone, I+O VS, Fishbone, I+O Laboratory Tests 03/31/21 05:11 Vital Signs Date Time Temp Pulse Resp B/P (MAP) Pulse Ox O2 Delivery O2 Flow Rate FiO2 03/31/21 05:00 65 120/58 (78) 97 Trach Collar 40 03/31/21 04:00 98.1 22 03/29/21 09:25 10.0 I&O- Last 24 Hours up to 6 AM 03/31/21 05:59 Intake Total 2410 ml Output Total 1515 ml Balance 895 ml RICARDO TOMLINSON MD Mar 31, 2021 08:28
--- NOTE | 2021-03-31 16:36 | IPN ---
NEPHROLOGY PROGRESS NOTE DATE: 03/31/2021 SUBJECTIVE: Mr. Carcamo is seen this morning on his bedside. He has been transferred out of the intensive care unit to the progressive care unit. Patient remains on the trach collar. He still has difficulty in communication, as he can not talk due to laryngectomy. He has difficulty writing due to severe tremors. PHYSICAL EXAMINATION: Temperature 97.4 degrees Fahrenheit, heart rate 74 per minute, respiratory rate 20 per minute, blood pressure 113/57 mmHg, oxygen saturation 96% on trach collar with 40% FiO2. HEAD: Atraumatic. NECK: Tracheostomy is in place and neck veins are difficult to be assessed. HEART SOUNDS: Regular. LUNGS: Diminished breath sounds. ABDOMEN: Soft and nontender. Feeding tube is in place. EXTREMITIES: Without any cyanosis or clubbing. NEUROLOGIC: He is awake and very tremulous. LABORATORY DATA: Today's labs show WBC down to 13.9, hemoglobin 9.4, hematocrit 29.2, platelets 303. Sodium 142, potassium 4.6, CO2 29, BUN is down to 125, creatinine 2.79, glucose 113, calcium 8.6. PROBLEMS: 1. Acute renal failure superimposed on chronic kidney disease. Slight improvement in BUN is noticed. However, creatinine is essentially unchanged or slightly elevated. He has jerky movements and tremors of his limbs, which makes me feel he has uremic symptoms. I have discussed with him about the potential need for dialysis yesterday and he did consent. We are waiting for leukocytosis to improve so he can have a Permacath placed. Blood cultures have been negative so far. I have requested a consultation from vascular surgery for Permacath placement. 2. Anemia. At present, his anemia is stable and does not need any urgent intervention. 3. Methicillin-resistant Staphylococcus aureus (MRSA) infection along with Enterobacter. He remains on antibiotics and is currently afebrile. Blood cultures have been negative. 4. Nutrition. Patient has been on tube feeding and continues to receive it.
[2021-04-01] VITALS: BP 134/63
[2021-04-01] MEDS: NYSTATIN 500,000 U/5 ML SUSP UDC SSP SCH ×4 (00:34→18:00)
[2021-04-01] MEDS: IPRATROPIUM 0.5MG/ALBUTEROL 2.5MG INH SOL UD 3ML (DUONEB) NEB SCH ×7 (00:39→23:12)
[2021-04-01] MEDS: HumaLOG INSULIN (NovoLOG) PER UNIT SC SCH ×3 (04:16→18:07)
[2021-04-01 04:17] VITALS: BP 119/59
[2021-04-01 04:58] LABS: BASO # 0.1 10^3/uL (0.0-0.2); BASO % 0.5 % (0.0-1.0); EOS # 0.7 10^3/uL (0.0-0.5); EOS % 5.7 % (0.0-3.0); HEMATOCRIT 30.3 % (42.0-52.0); HEMOGLOBIN 9.7 g/dl (13.5-17.5); LYMPH # 0.9 10^3/uL (1.5-5.0); LYMPH % 7.5 % (24.0-44.0); MEAN CORPUSCULAR HEMOGLOBIN 33.4 pg (27.0-33.0); MEAN CORPUSCULAR VOLUME 104.5 fl (80.0-96.0); MONO # 0.9 10^3/uL (0.0-0.8); NEUTROPHILS # 9.4 10^3/uL (1.5-8.5); NEUTROPHILS % 77.5 % (36.0-66.0); PLATELET COUNT, AUTOMATED 301 10^3/uL (150-450); WHITE BLOOD COUNT 12.1 10^3/uL (4.0-10.0)
[2021-04-01 05:33] LABS: ALBUMIN 1.5 GM/DL (3.2-5.2); BILIRUBIN,TOTAL 0.2 MG/DL (0.2-1.0); CALCIUM LEVEL 9.2 MG/DL (8.8-10.2); CREATININE FOR GFR 2.84 MG/DL (0.70-1.30); GLOMERULAR FILTRATION RATE 23.5 (>42); MAGNESIUM LEVEL 2.9 MG/DL (1.8-2.4); POTASSIUM SERUM 4.2 MEQ/L (3.5-5.1); TOTAL PROTEIN 5.8 GM/DL (6.4-8.2)
[2021-04-01] MEDS: diphenhydrAMINE 50MG/ML VIAL (J1200) IV SCH ×2 (07:33→19:30)
[2021-04-01 07:36] VITALS: BP_SYST 120; BP_DIAS 56; BP_DIAS 96
[2021-04-01] MEDS: ACETYLCYSTEINE 20% 4 ML VIAL (200MG/ML) INH SCH ×2 (08:36→19:21)
[2021-04-01] MEDS: SOTALOL HCL 80 MG TAB GT SCH ×2 (09:00→21:27)
[2021-04-01] MEDS: NYSTATIN 100,000 UNITS/GM TOPICAL PWD 15 GM TOP SCH ×2 (09:00→21:28)
[2021-04-01] MEDS: FLUTICASONE PROP 0.05% NASAL SPRAY 16 GM (FLONASE) NARES SCH ×2 (09:00→21:28)
[2021-04-01] MEDS: METAMUCIL (PSYLLIUM) PACKET PO SCH ×2 (09:00→21:28)
[2021-04-01] MEDS: SOTALOL 40MG PER 1/2 TABLET PO SCH ×2 (09:00→21:28)
--- NOTE | 2021-04-01 10:49 | IPNPDOC ---
Text Note Date of Service The patient was seen on 04/01/21. NOTE S: Pt seen and evaluated at bedside. He tells me he is doing well and has no concerns or complaints. He tells me he likes the TEDs as the "compression feels good" on his legs and denies any pain at the site of his blister. Denies chest pain, difficulty breathing, cough, abd pain. O: GEN: laying in bed, awake and alert, trach collar in place, NAD HEENT: NC/AT, nares patent, dry mucous membranes CARDIO: normal heart sounds, RRR, no MRG PULM: CTA b/l, mild wheezing upper lobes b/l, no RR ABD: normal BS, soft, nondistended, loose stool output from rectal tube : riddle catheter in place w/ good output and w/out hematuria SKIN: generalized dry skin; PEG site clean and w/out signs of infxn; trach site clean w/ min bleeding and no signs of infxn; lower abd bruising from heparin SQ; no new blisters/rashes IMAGING/Bx: Renal US 03/20: Normal urinary tract sonography. CXR 03/21: 1. COPD with some bibasilar patchy infiltrates atelectasis, above the diaphragm on the right and medially in the retrocardiac zone on the left. Bilateral effusions noted. 2. No gross cardiomegaly or dolly edema. Prominence of pulmonary arteries centrally suggest pulmonary artery hypertension, likely on the basis of COPD. 3. New tracheostomy tube since the previous CT in August. Right lung main bronchus, bronchoscopic biopsy: Mainly degenerated inflammatory debris/acute inflammatory cells and entrapped small cluster of highly atypical squamous cells is noted, suspicious for non- small cell carcinoma. Immunostains for TTF-1, P40 and CK7 were performed. The small atypical cluster is positive for P40(squamous cell stain), and negative for TTF-1 but CK7 is non- contributory as the small cluster disappears. CXR 03/24: New infiltrate suspected in the right base consistent with pneumonia. Increased markings in the right apex are also noted. Borderline heart size and vascular congestion.. CXR 03/24: Left subclavian catheter in place. No evidence of pneumothorax. Right upper lobe infiltrate. Question right lower lobe. CXR 03/26: Right base markings appear to be improved. Right upper lobe infiltrate persists. Tracheostomy tube in place. CXR 03/28/21: No new infiltrate. Tracheostomy tube remains in place A/P: 70M PMH CKDIV, metastatic CA w/ non small cell lung CA complicated PNA, on annie ezolid day8/10 and cefepime day710, w/ improved kidney fxn and unchanging clinical status. s/p Acute metabolic encephalopathy - likely 2/2 hypercarbia, possibly 2/2 uremia - Currently mentation has improved; oriented - No focal deficits - s/p Hypercarbia s/p Hypercarbic respiratory failure - possibly 2/2 inability to clear secretions - ABG noted - Imaging noted above - s/p Positive pressure ventilation - continue careful suctioning, given recent hemoptysis from drop lesion #RLL PNA- improving - Hemodynamically stable / Afebrile - Leukocytosis improving Blood cx (03/30) neg Bronchial washing cx + MRSA, +Enterobacter cloacae CRE Continue chest PT On Linezolid day 8 On Cefepime day 7 - ID and Pulmonology on consultation; appreciate their input #PEG site infxn; improving Wound cx +MRSA, +Enterobacter cloacae CRE On Linezolid day 8, Cefepime day7 Followed by ID #Trach site infxn- improving On Linezolid day 8, Cefepime, day710 Followed by ID #+MRSA, +Enterobacter cloacae CRE VIP status ID on consult 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 De Leon 11/2020) - Based on documentation pathology positive for moderately differentiated SCC with positive margins - Patient had refused systemic chemotherapy at the recommendation of radiation oncology - Followed by [facility] - ENT (Dr. Anaya) consulted; had evaluated initially; Subsequent ENT (Dr. Munoz) called to change trach to cuffed trach for ventilation on 03/28 Non-small cell lung CA in RUL - Reported to have been in remission #CKD IV BUN 114, Cr 2.84, GFR 23.5 Monitor kidney fxn and will pursue catheter placement and dialysis if necessary Diet low protein and high water content Riddle catheter in place Nephrology on consult #Loose stool via rectal tube Start Metamucil D/c rectal tube pending improvement in stool quality #Fungal infxn abd folds On Nystatin ointment #HTN- well controlled On Amlodipine #Paroxysmal atrial fibrillation Rate remains controlled On Sotalol On Heparin #DLP On Atorvastatin #DM2- improved control On Levemir, Insulin SS Continue to monitor #GERD On Famotidine #DVT prophylaxis Heparin BID- monitor for hemoptysis Bedrest PEG tube feeds- low protein, high water content VS,Fishbone, I+O VS, Fishbone, I+O Laboratory Tests 04/01/21 04:44 Vital Signs Date Time Temp Pulse Resp B/P (MAP) Pulse Ox O2 Delivery O2 Flow Rate FiO2 04/01/21 09:00 69 120/56 04/01/21 07:36 98.5 20 96 Trach Collar 8.0 04/01/21 04:17 35 I&O- Last 24 Hours up to 6 AM 04/01/21 05:59 Intake Total 1400 ml Output Total 1995 ml Balance -595 ml GME ATTESTATION GME ATTESTATION My faculty preceptor for this patient encounter was physically present during the encounter and was fully available. All aspects of the patient interview, examination, medical decision making process, and medical care plan development were reviewed and approved by the faculty preceptor. The faculty preceptor is aware and concurs with the plan as stated in the body of this note and will attest to such by his/her cosignature. ATTENDING NOTE I, Steffen Gomez, have independently examined this patient and performed my own physical exam, as well as reviewed the documentation and edited where necessary. I have discussed in detail with the resident / student the findings and plan of treatment as documented by the resident / student and edited their note. I agree with their findings and treatment plan and have edited their documentation. I will continue to follow the patient during this hospital stay. Gloria Thompson DO Apr 01, 2021 10:49 STEFFEN GOMEZ MD Apr 01, 2021 14:23
[2021-04-01] MEDS: CEFEPIME HCL 2 GM in D5W MINI-BAG PLUS 50 ML IV SCH ×2 (11:18→23:08)
[2021-04-01] MEDS: LEVEMIR (INSULIN DETEMIR) 1 UNITS/0.01ML SC SCH ×2 (11:19→21:28)
[2021-04-01] MEDS: allopurinoL 100 MG TAB GT SCH (11:20)
[2021-04-01] MEDS: HEPARIN SOD (PORCINE) 5000UNITS/ML 1ML VIAL/SYRINGE SQ SCH ×2 (11:20→21:28)
[2021-04-01] MEDS: FOLIC ACID 1 MG TAB GT SCH (11:20)
[2021-04-01] MEDS: ATORVASTATIN 20 MG TAB GT SCH (11:20)
[2021-04-01] MEDS: FAMOTIDINE 20 MG TAB GT SCH ×2 (11:21→21:27)
[2021-04-01] MEDS: amLODIPine 5 MG TAB GT SCH (11:21)
[2021-04-01] MEDS: LINEZOLID 600MG TABLET (ZYVOX) JT SCH ×2 (11:21→21:27)
[2021-04-01 11:42] VITALS: BP 118/68
[2021-04-01 12:13] LABS: HEPATITIS B SURFACE ANTIBODY NEGATIVE (POSITIVE)
[2021-04-01 12:24] LABS: HEPATITIS B SURFACE ANTIGEN NEGATIVE (NEGATIVE)
[2021-04-01 12:53] LABS: HEPATITIS B CORE ANTIBODY IGM NEGATIVE (NEGATIVE); HEPATITIS C VIRUS ABY INDEX 0.1 INDEX (<0.8)
--- NOTE | 2021-04-01 13:00 | IPN ---
PROGRESS NOTE DATE: 04/01/2021 SUBJECTIVE: Mr. Carcamo is seen this morning on his bedside. He remains on the trach collar. He denies any fever or chills. He is still not able to communicate very well. He had difficulty writing due to severe tremors yesterday. OBJECTIVE: VITAL SIGNS: Temperature is 98.5 degrees Fahrenheit, heart rate is 70 per minute and respiratory rate is 20 per minute. Blood pressure is 120/56 mmHg and oxygen saturation 96% on trach collar. HEAD: His head is atraumatic. NECK: Neck veins are difficult to be assessed due to tracheostomy. HEART: Heart sounds are regular. LUNGS: Diminished breath sounds. ABDOMEN: Soft. Bowel sounds are normal. PEG-tube is present. EXTREMITIES: Without any cyanosis or clubbing. NEUROLOGIC: He is awake and able to respond. He is still tremulous but his tremors have improved slightly. LABORATORY DATA: Today's labs showed a WBC count of 12.1, hemoglobin 9.7 and hematocrit 30.3, platelets 301,000. Sodium 142, potassium 4.2, CO2 27, BUN is down to 114 and creatinine 2.84, glucose 194 and calcium 9.2. Total protein is 5.8 and albumin is only 1.5. PROBLEMS: 1. Acute renal failure superimposed on chronic kidney disease. No significant change in kidney function although his BUN is slightly improved. We are waiting for vascular surgery to place a Perm-A-Cath and then we can try to dialyze him. I have told the patient that today there is no emergent need for dialysis and we are waiting until his leukocytosis improves. His blood cultures have been negative so far. His tube feeding regimen has been changed which is helping with improvement in his BUN, however kidney function is still about the same. 2. Anemia, his anemia is stable and no significant change noticed. 3. Infection with MRSA and Enterobacter. Patient has bronchial and tracheal infection. He is being treated with antibiotics and currently afebrile. He remains on Cefepime. Vancomycin has been now stopped. 4. Nutrition. Patient continues to receive tube feedings. We have made some changes and increased the free water and cut down nitrogen load.
[2021-04-01] MEDS ORDERED: SODIUM CHLORIDE 0.9% INJ 10 ML SYR IV PRN (14:45)
[2021-04-01 15:32] VITALS: BP 137/61
[2021-04-01] MEDS ORDERED: SODIUM CHLORIDE 0.9% INJ 10 ML SYR IV SCH (18:00)
[2021-04-01] MEDS: SODIUM CHLORIDE 0.9% INJ 10 ML SYR IV SCH (23:08)
[2021-04-02] VITALS (9 sets, daily range): BP systolic 113–130; BP diastolic 53–64; O2SAT 94–97
[2021-04-02] MEDS: NYSTATIN 500,000 U/5 ML SUSP UDC SSP SCH ×4 (00:22→18:00)
[2021-04-02] MEDS: HumaLOG INSULIN (NovoLOG) PER UNIT SC SCH ×4 (00:23→18:17)
[2021-04-02] MEDS: IPRATROPIUM 0.5MG/ALBUTEROL 2.5MG INH SOL UD 3ML (DUONEB) NEB SCH ×5 (03:44→21:07)
[2021-04-02] MEDS: SODIUM CHLORIDE 0.9% INJ 10 ML SYR IV SCH ×3 (05:43→22:08)
[2021-04-02] MEDS: CEFEPIME HCL 2 GM in D5W MINI-BAG PLUS 50 ML IV SCH (05:43)
[2021-04-02] MEDS: diphenhydrAMINE 50MG/ML VIAL (J1200) IV SCH ×2 (05:43→20:15)
[2021-04-02 05:44] LABS: BASO # 0.1 10^3/uL (0.0-0.2); BASO % 0.6 % (0.0-1.0); EOS # 0.6 10^3/uL (0.0-0.5); EOS % 4.3 % (0.0-3.0); HEMATOCRIT 30.7 % (42.0-52.0); HEMOGLOBIN 9.9 g/dl (13.5-17.5); LYMPH % 7.2 % (24.0-44.0); MEAN CORPUSCULAR HEMOGLOBIN 33.4 pg (27.0-33.0); MEAN CORPUSCULAR HGB CONC 32.2 g/dl (32.0-36.5); MEAN CORPUSCULAR VOLUME 103.7 fl (80.0-96.0); MONO % 6.6 % (2.0-8.0); NEUTROPHILS # 11.6 10^3/uL (1.5-8.5); NEUTROPHILS % 79.9 % (36.0-66.0); PLATELET COUNT, AUTOMATED 308 10^3/uL (150-450); RED BLOOD COUNT 2.96 10^6/uL (4.30-6.10); WHITE BLOOD COUNT 14.5 10^3/uL (4.0-10.0)
[2021-04-02 06:16] LABS: ALBUMIN 1.5 GM/DL (3.2-5.2); BILIRUBIN,TOTAL 0.2 MG/DL (0.2-1.0); CALCIUM LEVEL 9.6 MG/DL (8.8-10.2); CREATININE FOR GFR 3.06 MG/DL (0.70-1.30); GLOMERULAR FILTRATION RATE 21.6 (>42); MAGNESIUM LEVEL 2.6 MG/DL (1.8-2.4); POTASSIUM SERUM 4.2 MEQ/L (3.5-5.1)
[2021-04-02] MEDS: ACETYLCYSTEINE 20% 4 ML VIAL (200MG/ML) INH SCH ×2 (07:43→21:07)
[2021-04-02] MEDS: FLUTICASONE PROP 0.05% NASAL SPRAY 16 GM (FLONASE) NARES SCH ×2 (09:00→21:00)
[2021-04-02] MEDS: SOTALOL HCL 80 MG TAB GT SCH ×2 (09:00→21:00)
[2021-04-02] MEDS: SOTALOL 40MG PER 1/2 TABLET PO SCH ×2 (09:00→21:00)
[2021-04-02] MEDS: FOLIC ACID 1 MG TAB GT SCH (09:59)
[2021-04-02] MEDS: HEPARIN SOD (PORCINE) 5000UNITS/ML 1ML VIAL/SYRINGE SQ SCH ×2 (09:59→22:05)
[2021-04-02] MEDS: allopurinoL 100 MG TAB GT SCH (09:59)
[2021-04-02] MEDS: ATORVASTATIN 20 MG TAB GT SCH (09:59)
[2021-04-02] MEDS: METAMUCIL (PSYLLIUM) PACKET PO SCH ×2 (09:59→22:06)
[2021-04-02] MEDS: FAMOTIDINE 20 MG TAB GT SCH ×2 (10:00→21:00)
[2021-04-02] MEDS: LINEZOLID 600MG TABLET (ZYVOX) JT SCH ×2 (10:00→22:07)
[2021-04-02] MEDS: LEVEMIR (INSULIN DETEMIR) 1 UNITS/0.01ML SC SCH ×2 (10:00→22:06)
[2021-04-02] MEDS: amLODIPine 5 MG TAB GT SCH (10:00)
[2021-04-02] MEDS: NYSTATIN 100,000 UNITS/GM TOPICAL PWD 15 GM TOP SCH ×3 (10:01→22:06)
--- NOTE | 2021-04-02 16:34 | IPNPDOC ---
Text Note Date of Service The patient was seen on 04/02/21. NOTE S: Pt seen and evaluated at bedside this AM. He tells me he is doing well and has no concerns or complaints. Denies chest pain, difficulty breathing, cough, abd pain. O: GEN: laying in bed, awake and alert, trach collar in place, NAD HEENT: NC/AT, nares patent, dry mucous membranes CARDIO: normal heart sounds, RRR, no MRG PULM: CTA b/l, mild wheezing upper lobes b/l, no RR ABD: hypoactive BS, soft, nondistended, loose stool output from rectal tube : riddle catheter in place w/ output and w/out hematuria SKIN: PEG site w/ some discharge and w/out signs of infxn; trach site clean w/ min bleeding and no signs of infxn; blister on ant RLE healed; no new blisters/rashes/wounds IMAGING/Bx: Renal US 03/20: Normal urinary tract sonography. CXR 03/21: 1. COPD with some bibasilar patchy infiltrates atelectasis, above the diaphragm on the right and medially in the retrocardiac zone on the left. Bilateral effusions noted. 2. No gross cardiomegaly or dolly edema. Prominence of pulmonary arteries centrally suggest pulmonary artery hypertension, likely on the basis of COPD. 3. New tracheostomy tube since the previous CT in August. Right lung main bronchus, bronchoscopic biopsy: Mainly degenerated inflammatory debris/acute inflammatory cells and entrapped small cluster of highly atypical squamous cells is noted, suspicious for non- small cell carcinoma. Immunostains for TTF-1, P40 and CK7 were performed. The small atypical cluster is positive for P40(squamous cell stain), and negative for TTF-1 but CK7 is non-contributory as the small cluster disappears. CXR 03/24: New infiltrate suspected in the right base consistent with pneumonia. Increased markings in the right apex are also noted. Borderline heart size and vascular congestion.. CXR 03/24: Left subclavian catheter in place. No evidence of pneumothorax. Right upper lobe infiltrate. Question right lower lobe. CXR 03/26: Right base markings appear to be improved. Right upper lobe infiltrate persists. Tracheostomy tube in place. CXR 03/28/21: No new infiltrate. Tracheostomy tube remains in place A/P: 70M PMH CKDIV, metastatic CA w/ non small cell lung CA complicated PNA, on Linezolid day9/10 and Cefepime day8/10, w/ unchanged kidney fxn and unchanging clinical status. #RLL PNA- improving Hemodynamically stable, afebrile Leukocytosis 14.5 Prelim blood cx (03/30) negative after 72hrs Bronchial washing cx + MRSA, +Enterobacter cloacae CRE Continue chest PT On Linezolid day9/10, Cefepime day8/10 ID and Pulmonology on consult #PEG site infxn- improving Wound cx +MRSA, +Enterobacter cloacae CRE On Linezolid day9/10, Cefepime day8/10 ID on consult #Trach site infxn- improving On Linezolid day 9/10, Cefepime, day8/10 ID on consult #+MRSA, +Enterobacter cloacae CRE VIP status ID on consult #Supraglottic tumor on left, 2/2 squamous cell carcinoma s/p laryngectomy and partial pharyngectomy / partial thyroidectomy ([facility] by Dr. De Leon 11/2020) - Based on documentation pathology positive for moderately differentiated SCC with positive margins - Patient had refused systemic chemotherapy at the recommendation of [facility] Pt w/ cuffed trach- no complications Pt planning to pursue radiation therapy, pending clinical improvement, resolution of infxn, and hospital d/c [facility] on consult #Non-small cell lung CA in RUL Reported to have been in remission [facility] on consult #s/p Acute metabolic encephalopathy, likely 2/2 hypercarbia, possibly 2/2 uremia Currently alert and oriented w/ good mentation No focal deficits #s/p Hypercarbic respiratory failure, possibly 2/2 inability to clear secretions ABG (03/30/21) noted Imaging noted above s/p Positive pressure ventilation Continue careful suctioning, given recent hemoptysis from drop lesion #CKD IV, possible ARF BUN 111, Cr 3.06 Monitor kidney fxn and will pursue catheter placement and dialysis, pending resolution of active infxn w/ WBC wnl and neg blood cx Diet low nitrogen, high water content Riddle catheter in place w/ output Nephrology on consult Vascular surgery on consult #Loose stool via rectal tube On Metamucil D/c rectal tube pending improvement in stool quality #Fungal infxn abd folds On Nystatin ointment #HTN- well controlled On Amlodipine #Paroxysmal atrial fibrillation- rate remains controlled On Sotalol On Heparin #DLP On Atorvastatin #DM2- improved control On Levemir, Insulin SS Continue to monitor #GERD On Famotidine #DVT prophylaxis Heparin BID- monitor for hemoptysis TEDs and sequentials DISPO: rehab Bedrest PEG tube feeds- low nitrogen, high water content GME ATTESTATION My faculty preceptor for this patient encounter was physically present during the encounter and was fully available. All aspects of the patient interview, examination, medical decision making process, and medical care plan development were reviewed and approved by the faculty preceptor. The faculty preceptor is aware and concurs with the plan as stated in the body of this note and will attest to such by his/her cosignature. ATTENDING NOTE personally examined the patient and discussed the lab and imaging findings with the resident and I agree with the above findings, summary and plan as detailed by the resident physician. VS,Fishbone, I+O VS, Fishbone, I+O Laboratory Tests 04/02/21 05:17 Vital Signs Date Time Temp Pulse Resp B/P (MAP) Pulse Ox O2 Delivery O2 Flow Rate FiO2 04/02/21 16:00 5.0 28 04/02/21 12:00 95 Trach Collar 04/02/21 11:35 97.6 72 22 119/57 (77) I&O- Last 24 Hours up to 6 AM 04/02/21 06:00 Output Total 700 ml Balance -700 ml Gloria Thompson DO Apr 02, 2021 16:34 FAREED CARTER MD Apr 03, 2021 07:38
[2021-04-02] MEDS: CEFEPIME HCL 1 GM in D5W MINI-BAG PLUS 50 ML IV SCH (20:22)
--- NOTE | 2021-04-02 21:58 | IPN ---
PROGRESS NOTE DATE: 04/02/2021 SUBJECTIVE: Mr. Carcamo is seen this morning on his bedside. He is lying in his bed and remains on trach collar. He continues to receive tube feeding through his PEG tube. Patient remains non-communicative due to tracheostomy and laryngectomy. He seemed less tremulous today. He is able to write about any questions or answers. PHYSICAL EXAMINATION: VITALS: Temperature 97.6 degrees Fahrenheit, heart rate 72 per minute, respiratory rate 20 per minute, blood pressure 119/57 mmHg, oxygen saturation 95% on trach collar. HEENT: Head is atraumatic. Neck is supple and JVD cannot be assessed. Tracheostomy is in place. LUNGS: Diminished breath sounds at dependent parts. HEART: Sounds are regular. ABDOMEN: Soft, obese and nontender. PEG tube is in place. Bowel sounds normal. EXTREMITIES: Without any cyanosis or clubbing. NEUROLOGIC: He is at his baseline mentation. LABORATORY STUDIES: Today's labs show WBC 14.5, hemoglobin 9.9 and hematocrit 30.7. Sodium 145, potassium 4.2, CO2 27, chloride 110, BUN down to 111 and creatinine 3.06. Total bilirubin 2.6, AST 47, ALT 63 and alkaline phosphatase 139. Total protein 6.0 and albumin 1.5. PROBLEMS: 1. Acute kidney injury superimposed on chronic kidney disease: Slight radiations. BUN is only slightly improved and creatinine slightly worse. His PEG tubing and free water has been adjusted. Unfortunately kidney function is not improving. We are waiting for vascular surgery to place a Permacath in case dialysis would be needed. 2. Anemia: At present anemia is stable and does not need any urgent intervention. 3. Nutrition: Patient remains on tube feeding through PEG tube. His tube feeding have been adjusted and free water has been added due to disproportionately elevated BUN. 4. Tracheostomy and bronchial infection: Patient had MRSA and Enterobacter. He remains on Cefepime and Zyvox. MTDD
[2021-04-03] VITALS: BP 134/61
[2021-04-03] MEDS: HumaLOG INSULIN (NovoLOG) PER UNIT SC SCH ×5 (00:23→23:45)
[2021-04-03] MEDS: NYSTATIN 500,000 U/5 ML SUSP UDC SSP SCH ×5 (00:31→23:45)
[2021-04-03] MEDS: IPRATROPIUM 0.5MG/ALBUTEROL 2.5MG INH SOL UD 3ML (DUONEB) NEB SCH ×6 (00:46→19:43)
[2021-04-03 04:00] VITALS: BP 141/63
[2021-04-03 04:37] LABS: BASO # 0.1 10^3/uL (0.0-0.2); BASO % 0.5 % (0.0-1.0); EOS # 0.6 10^3/uL (0.0-0.5); EOS % 4.9 % (0.0-3.0); HEMATOCRIT 30.8 % (42.0-52.0); HEMOGLOBIN 9.9 g/dl (13.5-17.5); LYMPH # 1.1 10^3/uL (1.5-5.0); LYMPH % 8.5 % (24.0-44.0); MEAN CORPUSCULAR HEMOGLOBIN 33.4 pg (27.0-33.0); MEAN CORPUSCULAR HGB CONC 32.1 g/dl (32.0-36.5); MEAN CORPUSCULAR VOLUME 104.1 fl (80.0-96.0); MONO % 7.8 % (2.0-8.0); PLATELET COUNT, AUTOMATED 327 10^3/uL (150-450); RED BLOOD COUNT 2.96 10^6/uL (4.30-6.10)
[2021-04-03 04:59] LABS: ALBUMIN 1.6 GM/DL (3.2-5.2); BILIRUBIN,TOTAL 0.1 MG/DL (0.2-1.0); CREATININE FOR GFR 3.63 MG/DL (0.70-1.30); GLOMERULAR FILTRATION RATE 17.7 (>42); MAGNESIUM LEVEL 2.7 MG/DL (1.8-2.4); POTASSIUM SERUM 3.9 MEQ/L (3.5-5.1); TOTAL PROTEIN 6.8 GM/DL (6.4-8.2)
[2021-04-03] MEDS: SODIUM CHLORIDE 0.9% INJ 10 ML SYR IV SCH ×3 (06:05→23:46)
[2021-04-03] MEDS: ACETYLCYSTEINE 20% 4 ML VIAL (200MG/ML) INH SCH ×2 (07:25→19:43)
[2021-04-03] MEDS: diphenhydrAMINE 50MG/ML VIAL (J1200) IV SCH ×2 (07:47→18:56)
[2021-04-03 07:55] VITALS: BP 128/59
[2021-04-03] MEDS: CEFEPIME HCL 1 GM in D5W MINI-BAG PLUS 50 ML IV SCH ×2 (08:34→21:25)
[2021-04-03] MEDS: SOTALOL 40MG PER 1/2 TABLET PO SCH ×2 (09:00→21:00)
[2021-04-03] MEDS: FLUTICASONE PROP 0.05% NASAL SPRAY 16 GM (FLONASE) NARES SCH ×2 (09:00→23:46)
[2021-04-03] MEDS: SOTALOL HCL 80 MG TAB GT SCH ×2 (09:00→21:00)
[2021-04-03] MEDS: HEPARIN SOD (PORCINE) 5000UNITS/ML 1ML VIAL/SYRINGE SQ SCH ×2 (09:53→23:46)
[2021-04-03] MEDS: METAMUCIL (PSYLLIUM) PACKET PO SCH ×2 (09:53→23:44)
[2021-04-03] MEDS: LEVEMIR (INSULIN DETEMIR) 1 UNITS/0.01ML SC SCH ×2 (09:53→23:45)
[2021-04-03] MEDS: amLODIPine 5 MG TAB GT SCH (09:54)
[2021-04-03] MEDS: ATORVASTATIN 20 MG TAB GT SCH (09:54)
[2021-04-03] MEDS: LINEZOLID 600MG TABLET (ZYVOX) JT SCH ×2 (09:54→23:44)
[2021-04-03] MEDS: FOLIC ACID 1 MG TAB GT SCH (09:54)
[2021-04-03] MEDS: FAMOTIDINE 20 MG TAB GT SCH ×2 (09:55→23:44)
[2021-04-03] MEDS: allopurinoL 100 MG TAB GT SCH (09:55)
[2021-04-03] MEDS: NYSTATIN 100,000 UNITS/GM TOPICAL PWD 15 GM TOP SCH ×2 (10:00→23:46)
--- NOTE | 2021-04-03 10:43 | IPNPDOC ---
Text Note Date of Service The patient was seen on 04/03/21. NOTE S: Pt seen and evaluated at bedside this AM. He tells me he is doing well and has been more tired recently. No new concerns or complaints. Denies chest pain, difficulty breathing, cough, abd pain. O: GEN: laying in bed, awake and alert, trach collar in place, NAD HEENT: NC/AT, nares patent, dry mucous membranes CARDIO: normal heart sounds, RRR, no MRG PULM: CTA b/l, mild wheezing upper lobes b/l, no RR ABD: hypoactive BS, soft, nondistended, loose stool output from rectal tube : riddle catheter in place w/ good output, min sediment, and w/out hematuria SKIN: PEG site clean and w/out signs of infxn; trach site clean w/ min bleeding and no signs of infxn; no new blisters/rashes/wounds IMAGING/Bx: Renal US 03/20: Normal urinary tract sonography. CXR 03/21: 1. COPD with some bibasilar patchy infiltrates atelectasis, above the diaphragm on the right and medially in the retrocardiac zone on the left. Bilateral effusions noted. 2. No gross cardiomegaly or dolly edema. Prominence of pulmonary arteries centrally suggest pulmonary artery hypertension, likely on the basis of COPD. 3. New tracheostomy tube since the previous CT in August. Right lung main bronchus, bronchoscopic biopsy: Mainly degenerated inflammatory debris/acute inflammatory cells and entrapped small cluster of highly atypical squamous cells is noted, suspicious for non- small cell carcinoma. Immunostains for TTF-1, P40 and CK7 were performed. The small atypical cluster is positive for P40(squamous cell stain), and negative for TTF-1 but CK7 is non- contributory as the small cluster disappears. CXR 03/24: New infiltrate suspected in the right base consistent with pneumonia. Increased markings in the right apex are also noted. Borderline heart size and vascular congestion.. CXR 03/24: Left subclavian catheter in place. No evidence of pneumothorax. Right upper lobe infiltrate. Question right lower lobe. CXR 03/26: Right base markings appear to be improved. Right upper lobe infiltrate persists. Tracheostomy tube in place. CXR 03/28/21: No new infiltrate. Tracheostomy tube remains in place A/P: 70M PMH CKDIV, metastatic CA w/ non small cell lung CA complicated by left supraglottic tumor pending radiation therapy, RLL PNA on Linezolid day10/10 and Cefepime day9/10, possible MARK on CKDIV w/ unchanged kidney fxn and unchanging clinical status. #RLL PNA- improving Hemodynamically stable, afebrile Leukocytosis improving 13.0 Prelim blood cx (03/30) negative after 72hrs Bronchial washing cx + MRSA, +Enterobacter cloacae CRE Continue chest PT On Linezolid day10/10, Cefepime day9/10 ID and Pulmonology on consult #PEG site infxn- improving Wound cx +MRSA, +Enterobacter cloacae CRE On Linezolid day10/10, Cefepime day9/10 ID on consult #Trach site infxn- improving On Linezolid day10/10, Cefepime, day9/10 ID on consult #+MRSA, +Enterobacter cloacae CRE VIP status ID on consult #Supraglottic tumor on left, 2/2 squamous cell carcinoma s/p laryngectomy and partial pharyngectomy / partial thyroidectomy ([facility] by Dr. De Leon 11/2020) - Based on documentation pathology positive for moderately differentiated SCC with positive margins - Patient had refused systemic chemotherapy at the recommendation of radonc Pt w/ cuffed trach- no complications Pt planning to pursue radiation therapy, pending clinical improvement, resolution of infxn. As per RadOnc, pt will receive radiation prior to d/c to rehab. [facility] on consult #Non-small cell lung CA in RUL Reported to have been in remission [facility] on consult #CKD IV, possible ARF/MARK BUN 107, Cr 3.63 Monitor kidney fxn and will pursue catheter placement and dialysis, pending resolution of active infxn w/ WBC wnl and neg blood cx Diet low nitrogen, high water content Riddle catheter in place w/ output Nephrology on consult Vascular surgery on consult #s/p Acute metabolic encephalopathy, likely 2/2 hypercarbia, possibly 2/2 uremia Currently alert and oriented w/ good mentation Continue w/ PT No focal deficits #s/p Hypercarbic respiratory failure, possibly 2/2 inability to clear secretions ABG (03/30/21) noted Imaging noted above s/p Positive pressure ventilation Continue careful suctioning, given recent hemoptysis from drop lesion #Loose stool via rectal tube On Metamucil D/c rectal tube, pending improvement in stool quality #Fungal infxn abd folds On Nystatin ointment #HTN- well controlled On Amlodipine #Paroxysmal atrial fibrillation- rate remains controlled On Sotalol On Heparin #DLP On Atorvastatin #DM2- improved control On Levemir, Insulin SS Continue to monitor #GERD On Famotidine #DVT prophylaxis Heparin SC BID- monitor for hemoptysis TEDs and sequentials DISPO: rehab Bedrest PEG tube feeds- low nitrogen, high water content GME ATTESTATION My faculty preceptor for this patient encounter was physically present during the encounter and was fully available. All aspects of the patient interview, examination, medical decision making process, and medical care plan development were reviewed and approved by the faculty preceptor. The faculty preceptor is aware and concurs with the plan as stated in the body of this note and will attest to such by his/her cosignature. ATTENDING NOTE I have personally examined the patient and discussed the lab and imaging findings with the resident team and agree with the above summary and plan. Unfortunately his Cr continues to rise but he is making adequate UOP and electrolytes are wnl. Appreciate nephrology recommendations. VS,Fishbone, I+O VS, Fishbone, I+O Laboratory Tests 04/03/21 04:21 Vital Signs Date Time Temp Pulse Resp B/P (MAP) Pulse Ox O2 Delivery O2 Flow Rate FiO2 04/03/21 09:54 68 128/59 04/03/21 07:55 97.9 20 96 Trach Collar 5.0 28 I&O- Last 24 Hours up to 6 AM 04/03/21 06:00 Intake Total 2850 ml Output Total 2610 ml Balance 240 ml Gloria Thompson DO Apr 03, 2021 10:43 FAREED CARTER MD Apr 03, 2021 11:30
[2021-04-03 16:00] VITALS: BP 142/74
[2021-04-03] MEDS: SODIUM CHLORIDE 0.9% INJ 10 ML SYR IV PRN (18:56)
[2021-04-03 20:00] VITALS: BP 128/61
--- NOTE | 2021-04-03 20:16 | IPN ---
PROGRESS NOTE DATE: 04/03/2021 SUBJECTIVE: Mr. Carcamo is seen this morning on his bedside. Nursing staff is present on the bedside, getting ready for his tube feeding. Patient remains on trach collar. He has a rectal tube and also has a Haji catheter in place. PHYSICAL EXAMINATION: VITALS: Temperature 97.9 degrees Fahrenheit, heart rate 68 per minute, respiratory rate 20 per minute, blood pressure 128/59 mmHg, oxygen saturation 96% on trach collar. HEENT: Head is atraumatic. Tracheostomy is in place. JVD difficult to be assessed. LUNGS: Diminished breath sounds. HEART: Sounds are regular. ABDOMEN: Obese and nontender. Feeding tube is in place. EXTREMITIES: Without any cyanosis or clubbing. NEUROLOGIC: He is awake and able to answer questions by nodding his head. LABORATORY STUDIES: Today's labs show WBC 13.0, hemoglobin 9.9, hematocrit 30.8, platelets 327,000. Sodium 141, potassium 3.9, CO2 27, BUN 107 and creatinine 3.63. Glucose 212 and calcium 10.0. Total protein 6.8 and albumin 1.6. PROBLEMS: 1. Acute kidney injury superimposed on chronic kidney disease: His kidney function is getting worse. I have discussed with the patient once again today about potential need for dialysis, however, he does not wish to be on dialysis for penitentiary. At this point, I have advised the nursing staff to try to set up a family meeting with his and physicians in order to discuss the plan of care. His prognosis remains poor due to advanced renal failure and respiratory failure. At present, he is not a candidate for chemotherapy or radiation therapy due to infection and acute renal failure. 2. Anemia: So far his anemia is stable and does not need any urgent intervention. 3. Infection: Patient has tracheal infection with Staph aureus and Enterobacter. He remains on Cefepime and tomorrow is the last day. He still has persistent leukocytosis, though has been afebrile. 4. Nutrition: Patient continues with PEG tubing and is tolerating well. 5. Hypercalcemia: Patient is developing hypercalcemia now over the last few days, which is most likely related to the tube feeding and the free water that he is receiving. He is not receiving any calcium supplement. Will consider increasing the free water. Other issues are being addressed by the hospitalist service.
[2021-04-04 04:00] VITALS: BP 158/70
[2021-04-04] MEDS: IPRATROPIUM 0.5MG/ALBUTEROL 2.5MG INH SOL UD 3ML (DUONEB) NEB SCH ×6 (04:00→19:42)
[2021-04-04] MEDS: SODIUM CHLORIDE 0.9% INJ 10 ML SYR IV SCH ×3 (05:49→22:19)
[2021-04-04] MEDS: NYSTATIN 500,000 U/5 ML SUSP UDC SSP SCH ×3 (05:49→18:02)
[2021-04-04 06:11] LABS: BASO # 0.1 10^3/uL (0.0-0.2); BASO % 0.7 % (0.0-1.0); EOS # 0.8 10^3/uL (0.0-0.5); EOS % 6.2 % (0.0-3.0); HEMATOCRIT 29.9 % (42.0-52.0); HEMOGLOBIN 9.8 g/dl (13.5-17.5); LYMPH # 1.3 10^3/uL (1.5-5.0); LYMPH % 10.4 % (24.0-44.0); MEAN CORPUSCULAR HEMOGLOBIN 33.6 pg (27.0-33.0); MEAN CORPUSCULAR HGB CONC 32.8 g/dl (32.0-36.5); MEAN CORPUSCULAR VOLUME 102.4 fl (80.0-96.0); NEUTROPHILS % 73.6 % (36.0-66.0); PLATELET COUNT, AUTOMATED 326 10^3/uL (150-450); RED BLOOD COUNT 2.92 10^6/uL (4.30-6.10); WHITE BLOOD COUNT 12.1 10^3/uL (4.0-10.0)
[2021-04-04 06:45] LABS: ALBUMIN 1.6 GM/DL (3.2-5.2); BILIRUBIN,TOTAL 0.2 MG/DL (0.2-1.0); CREATININE FOR GFR 4.19 MG/DL (0.70-1.30); MAGNESIUM LEVEL 2.6 MG/DL (1.8-2.4); POTASSIUM SERUM 3.8 MEQ/L (3.5-5.1); TOTAL PROTEIN 6.6 GM/DL (6.4-8.2)
[2021-04-04] MEDS: diphenhydrAMINE 50MG/ML VIAL (J1200) IV SCH ×2 (07:16→19:31)
[2021-04-04] MEDS: HumaLOG INSULIN (NovoLOG) PER UNIT SC SCH ×3 (07:16→18:02)
[2021-04-04] MEDS: ACETYLCYSTEINE 20% 4 ML VIAL (200MG/ML) INH SCH ×2 (07:27→19:42)
[2021-04-04 08:00] VITALS: BP 110/85
--- NOTE | 2021-04-04 08:48 | RADENCPD ---
Date/Time of Encounter Date of Encounter: Apr 04, 2021 Time of Encounter: 08:33 Encounter Note events of previous 48 hours since I visited Tre. His infections seem to be resolving, however he has mounting renal failure. He may require dialysis. Renal failure is not a barrier to receiving RT in itself, but as dialysis may not be in line with Tre's goals of care, I will hold RT until this point is resolved. I will call Cheryl later today to update her on the plan for cancer treatment. At this point, I anticipate starting RT on Thursday04/08/21. Treatment will be 70 Gy in 35 fractions. With respect to the right mainstem lesion, I believe that treatment with radiation is feasible [id number], but not immediately or concurrently with the present course of RT which is targeting the residual HN disease. To treat these 2 sites concurrently would be too toxic for Tre, in his frail state, and in light of his recent infections. I remain available to participate in any family meetings or multidisciplinary discussions, I will continue to follow his progress daily. ABDI ARENAS MD Apr 04, 2021 08:48
[2021-04-04] MEDS: CEFEPIME HCL 1 GM in D5W MINI-BAG PLUS 50 ML IV SCH ×2 (09:28→20:18)
[2021-04-04] MEDS: FLUTICASONE PROP 0.05% NASAL SPRAY 16 GM (FLONASE) NARES SCH ×2 (09:28→22:13)
[2021-04-04] MEDS: LEVEMIR (INSULIN DETEMIR) 1 UNITS/0.01ML SC SCH ×2 (09:28→22:12)
[2021-04-04] MEDS: NYSTATIN 100,000 UNITS/GM TOPICAL PWD 15 GM TOP SCH ×2 (09:28→22:13)
[2021-04-04] MEDS: METAMUCIL (PSYLLIUM) PACKET PO SCH ×2 (09:28→22:12)
[2021-04-04] MEDS: SOTALOL 40MG PER 1/2 TABLET PO SCH ×2 (09:29→21:00)
[2021-04-04] MEDS: HEPARIN SOD (PORCINE) 5000UNITS/ML 1ML VIAL/SYRINGE SQ SCH ×2 (09:29→22:13)
[2021-04-04] MEDS: ATORVASTATIN 20 MG TAB GT SCH (09:30)
[2021-04-04] MEDS: SOTALOL HCL 80 MG TAB GT SCH ×2 (09:30→21:00)
[2021-04-04] MEDS: LINEZOLID 600MG TABLET (ZYVOX) JT SCH ×2 (09:30→22:12)
[2021-04-04] MEDS: FAMOTIDINE 20 MG TAB GT SCH ×2 (09:30→22:12)
[2021-04-04] MEDS: FOLIC ACID 1 MG TAB GT SCH (09:30)
[2021-04-04] MEDS: amLODIPine 5 MG TAB GT SCH (09:30)
[2021-04-04] MEDS: allopurinoL 100 MG TAB GT SCH (09:31)
--- NOTE | 2021-04-04 10:16 | IPNPDOC ---
Text Note Date of Service The patient was seen on 04/04/21. NOTE S: Pt seen and evaluated at bedside this AM. He tells me he is doing well. Pt working w/ PT. He is interested in having rectal tube removed. No new concerns or complaints. Denies chest pain, difficulty breathing, cough, abd pain. O: GEN: laying in bed, drowsy, able to answer questions, trach collar in place, NAD HEENT: NC/AT, EOMI, nares patent, dry mucous membranes, trach w/ mucous discharge CARDIO: normal heart sounds, RRR, no MRG PULM: CTA b/l, wheezing throughout b/l, no RR ABD: hypoactive BS, soft, nondistended, loose stool output from rectal tube : riddle catheter in place w/ good output, min sediment, and w/out hematuria SKIN: PEG site clean and w/out signs of infxn; trach site clean w/ min bleeding and no signs of infxn; chronic venous stasis changes b/l LE; no new blisters/rashes/wounds IMAGING/Bx: Renal US 03/20: Normal urinary tract sonography. CXR 03/21: 1. COPD with some bibasilar patchy infiltrates atelectasis, above the diaphragm on the right and medially in the retrocardiac zone on the left. Bilateral effusions noted. 2. No gross cardiomegaly or dolly edema. Prominence of pulmonary arteries centrally suggest pulmonary artery hypertension, likely on the basis of COPD. 3. New tracheostomy tube since the previous CT in August. Right lung main bronchus, bronchoscopic biopsy: Mainly degenerated inflammatory debris/acute inflammatory cells and entrapped small cluster of highly atypical squamous cells is noted, suspicious for non- small cell carcinoma. Immunostains for TTF-1, P40 and CK7 were performed. The small atypical cluster is positive for P40(squamous cell stain), and negative for TTF-1 but CK7 is non- contributory as the small cluster disappears. CXR 03/24: New infiltrate suspected in the right base consistent with pneumonia. Increased markings in the right apex are also noted. Borderline heart size and vascular congestion.. CXR 03/24: Left subclavian catheter in place. No evidence of pneumothorax. Right upper lobe infiltrate. Question right lower lobe. CXR 03/26: Right base markings appear to be improved. Right upper lobe infiltrate persists. Tracheostomy tube in place. CXR 03/28/21: No new infiltrate. Tracheostomy tube remains in place A/P: 70M PMH CKDIV, metastatic CA w/ non small cell lung CA complicated by left supra glottic tumor pending radiation therapy 04/08, RLL PNA on Cefepime day9/10, MARK on CKDIV w/ worsening kidney fxn, unchanging clinical status. 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 De Leon 11/2020) - Based on documentation pathology positive for moderately differentiated SCC with positive margins - Patient had refused systemic chemotherapy at the recommendation of radonc Pt w/ cuffed trach- no complications Pt pursuing radiation therapy, pending clinical improvement, resolution of infxn. As per RadOnc, pt will begin radiation txt 04/08. 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 Diet low nitrogen, high water content Riddle catheter in place w/ good output Nephrology on consult Vascular surgery on consult #s/p Acute metabolic encephalopathy, likely 2/2 hypercarbia, possibly 2/2 uremia Currently alert and oriented w/ good mentation Continue w/ PT No focal deficits #s/p Hypercarbic respiratory failure, possibly 2/2 inability to clear secretions ABG (03/30/21) noted Imaging noted above s/p Positive pressure ventilation Continue careful suctioning, given recent hemoptysis from drop lesion #Loose stool via rectal tube On Metamucil D/c rectal tube, pending improvement in stool quality #Fungal infxn abd folds On Nystatin ointment #HTN- well controlled On Amlodipine #Paroxysmal atrial fibrillation- rate remains controlled On Sotalol On Heparin #DLP On Atorvastatin #DM2- improved control On Levemir, Insulin SS Continue to monitor #GERD On Famotidine #DVT prophylaxis Heparin SC BID- monitor for hemoptysis TEDs and sequentials DISPO: rehab Bedrest PEG tube feeds- low nitrogen, high water content GME ATTESTATION My faculty preceptor for this patient encounter was physically present during the encounter and was fully available. All aspects of the patient interview, examination, medical decision making process, and medical care plan development were reviewed and approved by the faculty preceptor. The faculty preceptor is aware and concurs with the plan as stated in the body of this note and will attest to such by his/her cosignature. ATTENDING NOTE I personally examined the patient, and I agree with the above noted findings and management as detailed by the resident physician. VS,Fishbone, I+O VS, Fishbone, I+O Laboratory Tests 04/04/21 05:53 Vital Signs Date Time Temp Pulse Resp B/P (MAP) Pulse Ox O2 Delivery O2 Flow Rate FiO2 04/04/21 09:30 82 134/70 04/04/21 08:00 97.5 18 94 Trach Collar 5.0 28 I&O- Last 24 Hours up to 6 AM 04/04/21 05:59 Intake Total 2140 ml Output Total 550 ml Balance 1590 ml Gloria Thompson DO Apr 04, 2021 10:16 FAREED CARTER MD Apr 04, 2021 11:57
[2021-04-04 16:00] VITALS: BP 132/63
[2021-04-04 20:00] VITALS: BP 143/62
[2021-04-05] MEDS: NYSTATIN 500,000 U/5 ML SUSP UDC SSP SCH ×3 (00:29→12:22)
[2021-04-05] MEDS: HumaLOG INSULIN (NovoLOG) PER UNIT SC SCH ×4 (00:30→18:33)
[2021-04-05 04:00] VITALS: BP 151/88
[2021-04-05] MEDS: SODIUM CHLORIDE 0.9% INJ 10 ML SYR IV SCH ×3 (05:32→22:00)
[2021-04-05 05:48] LABS: BASO # 0.1 10^3/uL (0.0-0.2); BASO % 0.9 % (0.0-1.0); EOS # 0.8 10^3/uL (0.0-0.5); EOS % 7.4 % (0.0-3.0); HEMATOCRIT 28.1 % (42.0-52.0); HEMOGLOBIN 9.3 g/dl (13.5-17.5); LYMPH # 1.2 10^3/uL (1.5-5.0); LYMPH % 10.9 % (24.0-44.0); MEAN CORPUSCULAR HEMOGLOBIN 33.9 pg (27.0-33.0); MEAN CORPUSCULAR HGB CONC 33.1 g/dl (32.0-36.5); MEAN CORPUSCULAR VOLUME 102.6 fl (80.0-96.0); MONO # 0.9 10^3/uL (0.0-0.8); MONO % 8.3 % (2.0-8.0); NEUTROPHILS % 71.4 % (36.0-66.0); PLATELET COUNT, AUTOMATED 299 10^3/uL (150-450); RED BLOOD COUNT 2.74 10^6/uL (4.30-6.10); WHITE BLOOD COUNT 11.2 10^3/uL (4.0-10.0)
[2021-04-05 06:19] LABS: ALBUMIN 1.6 GM/DL (3.2-5.2); BILIRUBIN,TOTAL 0.2 MG/DL (0.2-1.0); CREATININE FOR GFR 4.68 MG/DL (0.70-1.30); GLOMERULAR FILTRATION RATE 13.2 (>42); MAGNESIUM LEVEL 2.5 MG/DL (1.8-2.4); POTASSIUM SERUM 3.7 MEQ/L (3.5-5.1); TOTAL PROTEIN 6.4 GM/DL (6.4-8.2)
[2021-04-05] MEDS: diphenhydrAMINE 50MG/ML VIAL (J1200) IV SCH ×2 (06:47→18:32)
[2021-04-05] MEDS: ACETYLCYSTEINE 20% 4 ML VIAL (200MG/ML) INH SCH ×2 (07:15→20:13)
[2021-04-05] MEDS: IPRATROPIUM 0.5MG/ALBUTEROL 2.5MG INH SOL UD 3ML (DUONEB) NEB SCH ×6 (07:15→22:43)
[2021-04-05 08:00] VITALS: BP 120/64
--- NOTE | 2021-04-05 08:23 | IPN ---
PROGRESS NOTE DATE: 04/04/2021 Mr. Carcamo is seen this morning on his bedside. He is sitting in the chair today and remains on trach collar. Nursing staff reports no significant change in overall condition. He is tolerating his tube feeds very well. PHYSICAL EXAMINATION: Temperature 97.5 degrees Fahrenheit, heart rate 82 per minute, respiratory rate 18 per minute, blood pressure 134/70 mmHg, and oxygen saturation 94% on trach collar with 28% FiO2. Tracheostomy is in place. Neck veins are difficult to be assessed. Head is atraumatic. Heart sounds are regular and lungs with diminished breath sounds and basilar crepitations. Abdomen soft and feeding tube is present. Extremities without any cyanosis or clubbing. Neurologically he is at his baseline mentation. Today's labs show WBC count 12.1, hemoglobin 9.8, hematocrit 29.9, platelets 326. Sodium 138, potassium 3.8, chloride 107, CO2 of 24, BUN 115, and creatinine 4.19. Glucose 210 and calcium 10.0. Total protein 6.6 and albumin 1.6. PROBLEMS: 1. Acute renal failure superimposed on chronic kidney disease. The patient has been without any diuretic. His BUN has gradually come down since his tube feeding was adjusted; however, his creatinine has been gradually worsening. He receives at least 2.4 liters of fluid through his gastrostomy (G) tube, including his feeding and free water. Patient has declined long-term dialysis. His prognosis remains poor. I have advised the nursing staff to contact his and try to schedule a family meeting with his primary care physician and myself. 2. Anemia. His anemia has been stable and does not need any urgent intervention. 3. Infection. Patient had methicillin-resistant Staphylococcus aureus (MRSA) and Enterobacter infection in his trachea and remains on cefepime and linezolid. 4. Protein-calorie malnutrition. Patient remains on tube feeding; however, his protein malnutrition is most likely related to infection. 5. Laryngeal cancer. Patient had laryngectomy done, and now he has a tracheostomy. I do not feel that he is in any condition to receive chemotherapy or radiation. His prognosis remains poor.
[2021-04-05] MEDS: METAMUCIL (PSYLLIUM) PACKET PO SCH ×2 (09:55→22:33)
[2021-04-05] MEDS: FOLIC ACID 1 MG TAB GT SCH (09:55)
[2021-04-05] MEDS: ATORVASTATIN 20 MG TAB GT SCH (09:55)
[2021-04-05] MEDS: SOTALOL 40MG PER 1/2 TABLET PO SCH ×2 (09:55→21:00)
[2021-04-05] MEDS: amLODIPine 5 MG TAB GT SCH (09:56)
[2021-04-05] MEDS: SOTALOL HCL 80 MG TAB GT SCH ×2 (09:56→21:00)
[2021-04-05] MEDS: allopurinoL 100 MG TAB GT SCH (09:57)
[2021-04-05] MEDS: FAMOTIDINE 20 MG TAB GT SCH ×2 (09:57→22:32)
[2021-04-05] MEDS: FLUTICASONE PROP 0.05% NASAL SPRAY 16 GM (FLONASE) NARES SCH ×2 (09:58→21:00)
[2021-04-05] MEDS: LEVEMIR (INSULIN DETEMIR) 1 UNITS/0.01ML SC SCH ×2 (09:58→22:33)
[2021-04-05] MEDS: HEPARIN SOD (PORCINE) 5000UNITS/ML 1ML VIAL/SYRINGE SQ SCH ×2 (09:58→22:33)
[2021-04-05] MEDS: NYSTATIN 100,000 UNITS/GM TOPICAL PWD 15 GM TOP SCH (09:59)
[2021-04-05] MEDS ORDERED: NYSTATIN 100,000 UNITS/GM TOPICAL PWD 15 GM TOP PRN (13:20)
--- NOTE | 2021-04-05 13:40 | IPNPDOC ---
Text Note Date of Service The patient was seen on 04/05/21. NOTE S: Pt seen and evaluated at bedside this AM. He tells me he is doing well. Pt working w/ PT. He tells me his rectal tube was removed and he is not having complications w/ BM. No new concerns or complaints. Denies chest pain, difficulty breathing, abd pain. O: GEN: laying in bed, alert and oriented, trach collar in place, NAD HEENT: NC/AT, EOMI, nares patent, dry mucous membranes, trach w/ mucous discharge CARDIO: normal heart sounds, RRR, no MRG PULM: CTA b/l, wheezing throughout b/l, no RR ABD: normal BS, soft, nondistended, nontender : riddle catheter in place w/ good output, min sediment, and w/out hematuria SKIN: PEG site clean and w/out signs of infxn; trach site clean w/ min bleeding and no signs of infxn; chronic venous stasis changes b/l LE; no new blisters/rashes/wounds IMAGING/Bx: Renal US 03/20: Normal urinary tract sonography. CXR 03/21: 1. COPD with some bibasilar patchy infiltrates atelectasis, above the diaphragm on the right and medially in the retrocardiac zone on the left. Bilateral effusions noted. 2. No gross cardiomegaly or dolly edema. Prominence of pulmonary arteries centrally suggest pulmonary artery hypertension, likely on the basis of COPD. 3. New tracheostomy tube since the previous CT in August. Right lung main bronchus, bronchoscopic biopsy: Mainly degenerated inflammatory debris/acute inflammatory cells and entrapped small cluster of highly atypical squamous cells is noted, suspicious for non- small cell carcinoma. Immunostains for TTF-1, P40 and CK7 were performed. The small atypical cluster is positive for P40(squamous cell stain), and negative for TTF-1 but CK7 is non- contributory as the small cluster disappears. CXR 03/24: New infiltrate suspected in the right base consistent with pneumonia. Increased markings in the right apex are also noted. Borderline heart size and vascular congestion.. CXR 03/24: Left subclavian catheter in place. No evidence of pneumothorax. Right upper lobe infiltrate. Question right lower lobe. CXR 03/26: Right base markings appear to be improved. Right upper lobe infiltrate persists. Tracheostomy tube in place. CXR 03/28/21: No new infiltrate. Tracheostomy tube remains in place A/P: 70M PMH CKDIV, metastatic CA w/ non small cell lung CA complicated by left supraglottic tumor pending radiation therapy 04/08, MARK on CKDIV w/ worsening kidney fxn, unchanging clinical status. 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 De Leon 11/2020) - Based on documentation pathology positive for moderately differentiated SCC with positive margins - Patient had refused systemic chemotherapy at the recommendation of radonc Pt w/ cuffed trach- no complications Pt pursuing radiation therapy. As per RadOnc, given pt's worsening kidney fxn and disinterest in custodial dialysis, goals of care are unclear. Radiation therapy 04/08 pending discussion w/ pt and family regarding goals of care. [facility] on consult #Non-small cell lung CA in RUL Reported to have been in remission [facility] on consult #MARK on CKD IV- worsening BUN 128, Cr 4.68 Monitor kidney fxn and will pursue catheter placement and dialysis, pending Vascular and Nephro recommendations Pt uninterested in custodial dialysis txt. Will need discussion w/ regards to importance of custodial dialysis, given continued decline in kidney fxn and plans to pursue radiation therapy and rehab upon d/c. Diet low nitrogen, high water content Riddle catheter in place w/ good output Nephrology on consult Vascular surgery on consult #s/p Acute metabolic encephalopathy, likely 2/2 hypercarbia, possibly 2/2 uremia Currently alert and oriented w/ good mentation Continue w/ PT No focal deficits #s/p Hypercarbic respiratory failure, possibly 2/2 inability to clear secretions ABG (03/30/21) noted Imaging noted above s/p Positive pressure ventilation Continue careful suctioning, given recent hemoptysis from drop lesion #Loose stool- RESOLVED On Metamucil Rectal tube d/c #Fungal infxn abd folds On Nystatin ointment PRN #HTN- well controlled On Amlodipine #Paroxysmal atrial fibrillation- rate remains controlled On Sotalol On Heparin #DLP On Atorvastatin #DM2- improved control On Levemir, Insulin SS Continue to monitor #GERD On Famotidine #DVT prophylaxis Heparin SC BID- monitor for hemoptysis TEDs and sequentials DISPO: rehab Bedrest PEG tube feeds- low nitrogen, high water content GME ATTESTATION My faculty preceptor for this patient encounter was physically present during the encounter and was fully available. All aspects of the patient interview, examination, medical decision making process, and medical care plan development were reviewed and approved by the faculty preceptor. The faculty preceptor is aware and concurs with the plan as stated in the body of this note and will attest to such by his/her cosignature. ATTENDING NOTE I personally examined Mr. Carcamo and discussed his course, findings and plan with his two sisters, Dr. Montenegro and the resident team as well as his via telephone, and they consented to pursuing HD at this time as his renal function continues to worsen and urine output is now low as well. His infection is now much improved, and of note, he was actually never bacteremic outside of his trach and tube mixed resistant edwar infection. I had a discussion with Dr. Gomez who had deferred permacath placement on prior discussions due to ongoing infection and updated him that his renal failure was much worse while his infection was better controlled and at this time would benefit more from permacath placement for dialysis than the infection placement would incur. He assured me that he would be on the list for Thursday by the incoming vascular surgeon but we could otherwise call for emergent placement over the weekend if otherwise clinically indicated. VS,Fishbone, I+O VS, Fishbone, I+O Laboratory Tests 04/05/21 05:38 Vital Signs Date Time Temp Pulse Resp B/P (MAP) Pulse Ox O2 Delivery O2 Flow Rate FiO2 04/05/21 09:56 72 120/64 04/05/21 08:00 97.3 17 100 Trach Collar 5.0 28 I&O- Last 24 Hours up to 6 AM 04/05/21 06:00 Intake Total 1180 ml Output Total 650 ml Balance 530 ml Gloria Thompson DO Apr 05, 2021 13:40 FAREED CARTER MD Apr 06, 2021 11:52
[2021-04-05 17:00] VITALS: BP 124/53
[2021-04-05] MEDS: SODIUM CHLORIDE 0.9% INJ 10 ML SYR IV PRN (18:34)
[2021-04-05 22:00] VITALS: BP 148/68
--- NOTE | 2021-04-05 22:53 | IPN ---
NEPHROLOGY PROGRESS NOTE DATE: 04/05/2021 SUBJECTIVE: I saw Mr. Carcamo this morning at his bedside. I have now discussed with his family including his sisters and . His sisters were present in person and attended the meeting over the phone. The patient has known history of advanced chronic kidney disease and has now developed superimposed acute renal failure. We have discussed the potential need for dialysis with him multiple times. Initially he did decline it, however now he seems to be agreeable. His family was asked to some in so we can all discuss. The patient has a history of laryngeal carcinoma, status post laryngectomy and tracheostomy. He is unfortunately unable to talk. He has the ability to write his questions or answers. He also has a feeding tube in place and has been receiving tube feedings and free water. Initially his BUN was very high, in the 140's and we made adjustments in his tube feedings, added more free water, which did help to improve his BUN, however now his creatinine is getting worse. The patient remains on a trach collar and has been oxygenating in the 90's. OBJECTIVE: PHYSICAL EXAMINATION: VITAL SIGNS: Temperature 97.7 degrees Fahrenheit, heart rate 72 per minute and respiratory rate 20 per minute. Blood pressure is 120/65 mm of mercury and oxygen saturation in the 90's on a trach collar. HEENT: His head is atraumatic. Tracheostomy is in place. HEART: Regular. LUNGS: Bilateral rhonchi and diminished breath sounds at the bases. ABDOMEN: Soft, obese, and nontender. Feeding tube is in place. EXTREMITIES: Without any cyanosis or clubbing. NEUROLOGICAL: He is awake and able to answer questions by writing his answers. LABORATORY STUDIES: Today's labs show a WBC count of 11.2, hemoglobin 9.3 and hematocrit 28.1. Platelet count 299. Sodium 137, potassium 3.7, CO2 22, BUN 128 and creatinine 4.68. Glucose 171 and calcium 10.0. Total protein 6.4 and albumin 1.6. ASSESSMENT: 1. Acute renal failure superimposed on chronic kidney disease - The patient has gradually worsening kidney function. He is receiving adequate amount of free water and tube feedings. He clinically does not look dehydrated. He has a Haji catheter which is draining cloudy urine. He did have a renal ultrasound done on March 20 which did not show any evidence for hydronephrosis. I have discussed with the patient and his family about the potential need for half-way dialysis. The patient and his family now are willing to proceed with dialysis. He understands that his chances for recovery of kidney function are minimal and he is likely to be dependent on dialysis for the rest of his life. We have already requested Vascular Surgery for a permacath placement and we are waiting for the procedure. The patient did have an infection is his tracheostomy site, and that was a concern due to leukocytosis, however his blood cultures have been all negative. 2. Infection, tracheostomy site - The patient has been on antibiotics and in fact has completed his antibiotic therapy. I will defer to the Hospitalist service about his antibiotic issue. 3. Anemia at present anemia is stable and there is no need for a transfusion. 4. Nutrition - The patient has been receiving tube feedings with Nepro and free water. He receives a total of about 2.5 liters, however documentation has been incomplete at times. 5. Laryngeal cancer, status post laryngectomy and tracheostomy - The patient is going to be scheduled for radiation therapy, probably as early as Thursday.
[2021-04-06] MEDS: HumaLOG INSULIN (NovoLOG) PER UNIT SC SCH ×4 (00:38→18:17)
[2021-04-06] MEDS: IPRATROPIUM 0.5MG/ALBUTEROL 2.5MG INH SOL UD 3ML (DUONEB) NEB SCH ×6 (04:14→23:14)
[2021-04-06] MEDS: SODIUM CHLORIDE 0.9% INJ 10 ML SYR IV SCH ×3 (05:06→22:10)
[2021-04-06 05:21] LABS: BASO # 0.1 10^3/uL (0.0-0.2); BASO % 0.9 % (0.0-1.0); EOS # 0.9 10^3/uL (0.0-0.5); EOS % 8.5 % (0.0-3.0); HEMATOCRIT 26.3 % (42.0-52.0); HEMOGLOBIN 8.7 g/dl (13.5-17.5); LYMPH # 1.3 10^3/uL (1.5-5.0); LYMPH % 13.2 % (24.0-44.0); MEAN CORPUSCULAR HGB CONC 33.1 g/dl (32.0-36.5); MEAN CORPUSCULAR VOLUME 102.7 fl (80.0-96.0); MONO % 10.3 % (2.0-8.0); NEUTROPHILS # 6.6 10^3/uL (1.5-8.5); NEUTROPHILS % 65.6 % (36.0-66.0); PLATELET COUNT, AUTOMATED 258 10^3/uL (150-450); RED BLOOD COUNT 2.56 10^6/uL (4.30-6.10); WHITE BLOOD COUNT 10.1 10^3/uL (4.0-10.0)
[2021-04-06 06:00] VITALS: BP 116/56
[2021-04-06 06:07] LABS: ALBUMIN 1.6 GM/DL (3.2-5.2); BILIRUBIN,TOTAL 0.2 MG/DL (0.2-1.0); CALCIUM LEVEL 9.4 MG/DL (8.8-10.2); CREATININE FOR GFR 5.34 MG/DL (0.70-1.30); GLOMERULAR FILTRATION RATE 11.3 (>42); MAGNESIUM LEVEL 2.5 MG/DL (1.8-2.4); POTASSIUM SERUM 3.8 MEQ/L (3.5-5.1); TOTAL PROTEIN 5.5 GM/DL (6.4-8.2)
[2021-04-06] MEDS: ACETYLCYSTEINE 20% 4 ML VIAL (200MG/ML) INH SCH ×2 (07:57→19:31)
[2021-04-06] MEDS ORDERED: DARBEPOETIN 100 MCG/0.5 ML *NON-DIALYSIS* SYRINGE (J0881) SC SCH (09:00)
[2021-04-06] MEDS: FLUTICASONE PROP 0.05% NASAL SPRAY 16 GM (FLONASE) NARES SCH ×2 (10:07→21:23)
[2021-04-06] MEDS: LEVEMIR (INSULIN DETEMIR) 1 UNITS/0.01ML SC SCH ×2 (10:07→21:22)
[2021-04-06] MEDS: METAMUCIL (PSYLLIUM) PACKET PO SCH ×2 (10:07→22:10)
[2021-04-06] MEDS: HEPARIN SOD (PORCINE) 5000UNITS/ML 1ML VIAL/SYRINGE SQ SCH ×2 (10:07→21:21)
[2021-04-06] MEDS: FAMOTIDINE 20 MG TAB GT SCH ×2 (10:08→22:10)
[2021-04-06] MEDS: FOLIC ACID 1 MG TAB GT SCH (10:08)
[2021-04-06] MEDS: ATORVASTATIN 20 MG TAB GT SCH (10:08)
[2021-04-06] MEDS: amLODIPine 5 MG TAB GT SCH (10:08)
[2021-04-06] MEDS: allopurinoL 100 MG TAB GT SCH (10:09)
[2021-04-06] MEDS: SOTALOL HCL 80 MG TAB GT SCH ×2 (10:09→21:00)
[2021-04-06] MEDS: diphenhydrAMINE 50MG/ML VIAL (J1200) IV SCH (10:09)
[2021-04-06] MEDS: SOTALOL 40MG PER 1/2 TABLET PO SCH ×2 (10:09→21:00)
[2021-04-06 11:07] LABS: PERCENT SATURATION 52.8 % (19.7-50.0)
--- NOTE | 2021-04-06 11:12 | IPNPDOC ---
Text Note Date of Service The patient was seen on 04/06/21. NOTE S: Pt seen and evaluated at bedside this AM. He tells me he is having a hard time breathing and bringing up mucous/secretions. He reports nonproductive cough and tells me he is not receiving adequate suctioning. Pt continues working well w/ PT. He is awaiting PermaCath placement to begin (press tender long goods) dialysis. No additional concerns or complaints. O: GEN: sitting up in bed, alert and oriented, trach collar in place, NAD HEENT: NC/AT, EOMI, nares patent, dry mucous membranes, trach w/ little discharge CARDIO: normal heart sounds, RRR, no MRG PULM: CTA b/l, wheezing throughout b/l, no RR ABD: normal BS, soft, nondistended, nontender : riddle catheter in place w/ poor output, min sediment, and w/out hematuria SKIN: PEG site clean and w/out signs of infxn; trach site clean w/ min bleeding and no signs of infxn; chronic venous stasis changes b/l LE; no new blisters/rashes/wounds IMAGING/Bx: Renal US 03/20: Normal urinary tract sonography. CXR 03/21: 1. COPD with some bibasilar patchy infiltrates atelectasis, above the diaphragm on the right and medially in the retrocardiac zone on the left. Bilateral effusions noted. 2. No gross cardiomegaly or dolly edema. Prominence of pulmonary arteries centrally suggest pulmonary artery hypertension, likely on the basis of COPD. 3. New tracheostomy tube since the previous CT in August. Right lung main bronchus, bronchoscopic biopsy: Mainly degenerated inflammatory debris/acute inflammatory cells and entrapped small cluster of highly atypical squamous cells is noted, suspicious for non- small cell carcinoma. Immunostains for TTF-1, P40 and CK7 were performed. The small atypical cluster is positive for P40(squamous cell stain), and negative for TTF-1 but CK7 is non-contributory as the small cluster disappears. CXR 03/24: New infiltrate suspected in the right base consistent with pneumonia. Increased markings in the right apex are also noted. Borderline heart size and vascular congestion.. CXR 03/24: Left subclavian catheter in place. No evidence of pneumothorax. Right upper lobe infiltrate. Question right lower lobe. CXR 03/26: Right base markings appear to be improved. Right upper lobe infiltrate persists. Tracheostomy tube in place. CXR 03/28/21: No new infiltrate. 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 De Leon 11/2020) - Based on documentation pathology positive for moderately differentiated SCC with positive margins - Patient had refused systemic chemotherapy at the recommendation of radonc Pt w/ cuffed trach- no complications Pt pursuing radiation therapy. Radiation therapy to begin 04/08 as per RadOnc, pending PermaCath placement and dialysis txt. RadOnc on consult #Non-small cell lung CA in RUL Reported to have been in remission MedOnc on consult #MARK on CKD IV- worsening BUN 132, Cr 5.34 Pt interested in press tender long goods dialysis txt, given continued decline in kidney fxn. Will have PermaCath placed 04/08, as per vascular surgery Diet low nitrogen, high water content Riddle catheter in place w/ poor output Monitor kidney fxn Nephrology on consult Vascular surgery on consult #s/p Acute metabolic encephalopathy, likely 2/2 hypercarbia, possibly 2/2 uremia Currently alert and oriented w/ good mentation Continue w/ PT No focal deficits #s/p Hypercarbic respiratory failure, possibly 2/2 inability to clear secretions ABG (03/30/21) noted Imaging noted above s/p Positive pressure ventilation Continue careful suctioning, given recent hemoptysis from drop lesion #Loose stool- RESOLVED On Metamucil #Fungal infxn abd folds On Nystatin ointment PRN #HTN- well controlled On Amlodipine #Paroxysmal atrial fibrillation- rate remains controlled On Sotalol On Heparin #DLP On Atorvastatin #DM2 On Levemir, Insulin SS Continue to monitor #GERD On Famotidine #DVT prophylaxis Heparin SC BID- monitor for hemoptysis TEDs and sequentials DISPO: rehab OOB w/ nurse assist PEG tube feeds- low nitrogen, high water content GME ATTESTATION My faculty preceptor for this patient encounter was physically present during the encounter and was fully available. All aspects of the patient interview, examination, medical decision making process, and medical care plan development were reviewed and approved by the faculty preceptor. The faculty preceptor is aware and concurs with the plan as stated in the body of this note and will attest to such by his/her cosignature. ATTENDING NOTE I personally examined Mr. Carcamo and discussed his findings and plan with the resident team and I agree with the above noted summary, findings and plan. On speaking with vascular surgery, he will be having a permacath placed on 04/07 and per nephrology will begin HD on 04/08. VS,Fishbone, I+O VS, Fishbone, I+O Laboratory Tests 04/06/21 05:10 Vital Signs Date Time Temp Pulse Resp B/P (MAP) Pulse Ox O2 Delivery O2 Flow Rate FiO2 04/06/21 10:09 63 04/06/21 10:08 124/52 04/06/21 06:00 97.2 21 96 Nasal Cannula 04/05/21 21:00 5.0 28 I&O- Last 24 Hours up to 6 AM 04/06/21 06:00 Intake Total 3694 ml Output Total 350 ml Balance 3344 ml Gloria Thompson DO Apr 06, 2021 11:12 FAREED CARTER MD Apr 07, 2021 09:35
[2021-04-06 14:00] VITALS: BP 117/52
[2021-04-06] MEDS ORDERED: FUROSEMIDE 100MG/10ML VIAL (J1940) IV ONE (19:30)
--- NOTE | 2021-04-06 19:42 | IPN ---
NEPHROLOGY PROGRESS NOTE DATE: 04/06/2021 SUBJECTIVE: The patient was seen and examined at the bedside today morning. He is afebrile and hemodynamically stable. He is unable to talk because of his tracheostomy, however he was able to answer a few questions by whispering. Medical team's notes were reviewed and as per documentation, the patient is supposed to get a tunneled dialysis catheter on April 08. OBJECTIVE: PHYSICAL EXAMINATION: VITAL SIGNS: Temperature is 97.6 degrees Fahrenheit, blood pressure 117/52, pulse is 64, respiratory rate of 18, saturating 99% on room air. INTAKE AND OUTPUT: Urine output recorded as 500 mL yesterday, 150 mL so far today since overnight. He is in positive fluid balance for the last many days. His last weight was 122 kg and is gradually increasing because of worsening edema. PHYSICAL EXAMINATION: GENERAL APPEARANCE: The patient is awake, alert, able to follow commands, laying in bed with morbid obesity. HEAD AND NECK: The patient has a tracheostomy. Mucous membranes are moist. Neck is supple. CARDIOVASCULAR: S1, S2, regular rate. EXTREMITIES: 2+ edema of the bilateral lower extremities. RESPIRATORY: The patient is dependent on tracheostomy. Intermittently he has some cough with wheezing. Mild decreased breath sounds at the bases. ABDOMEN: Soft, obese. He has a PEG tube in the epigastrium. GENITOURINARY: She has an indwelling Haji catheter. A very small amount of urine in the bag is noted. MUSCULOSKELETAL: The patient has significant edema, around 2+ of both lower extremities. TRIM CARPENTER: The patient follows commands and moves the bilateral upper and lower extremities. LAB REVIEW: CBC showed a WBC of 10.1, hemoglobin 8.7, platelet count 258. BMP showed sodium of 133, potassium 3.8, chloride 102, bicarbonate 21, BUN 132, creatinine is 5.3, calcium is 9.4, magnesium 2.5. Iron is 84, TIBC 159, transferrin saturation is 52%. Ferratin is 1,935. Albumin is 1.6. Microbiology repeat blood cultures from March 30 are negative so far. Respiratory viral panel is pending. CURRENT INPATIENT MEDICATIONS: The patient's medications were all reviewed by myself. There is no significant change in the medications except that I have started the patient on Aranesp 100 mcg subcutaneously once a week. ASSESSMENT AND PLAN: 1. Acute renal failure superimposed on chronic kidney disease - The patient persistently has high BUN and creatinine. Decision was made after family discussion to start the patient on dialysis. He does not have an access at this time. He will get a tunneled dialysis catheter placed on April 08 and after that we shall try to dialyze this patient. 2. Infection of the tracheostomy site - The patient is currently on IV antibiotics. White cell count is improving. 3. Anemia in renal failure the patient's iron levels are adequate. I have started the patient on Aranesp. 4. Protein calorie malnutrition - The patient is getting Nepro and free water. 5. Lower extremity edema - The patient has decreased urine output and he is getting liquid tube feeds. I have started the patient on Lasix. Dose will be adjusted according to the patient's response to the diuretic.
[2021-04-06 22:00] VITALS: BP 115/51
[2021-04-07] VITALS (9 sets, daily range): BP systolic 110–163; BP diastolic 50–77
[2021-04-07] MEDS: HumaLOG INSULIN (NovoLOG) PER UNIT SC SCH ×5 (00:36→23:47)
[2021-04-07] MEDS: IPRATROPIUM 0.5MG/ALBUTEROL 2.5MG INH SOL UD 3ML (DUONEB) NEB SCH ×6 (04:19→23:24)
[2021-04-07] MEDS: SODIUM CHLORIDE 0.9% INJ 10 ML SYR IV SCH ×3 (05:07→22:05)
[2021-04-07 05:35] LABS: BASO # 0.1 10^3/uL (0.0-0.2); BASO % 0.9 % (0.0-1.0); EOS # 0.8 10^3/uL (0.0-0.5); EOS % 7.5 % (0.0-3.0); HEMATOCRIT 27.4 % (42.0-52.0); HEMOGLOBIN 9.1 g/dl (13.5-17.5); LYMPH # 1.4 10^3/uL (1.5-5.0); LYMPH % 12.7 % (24.0-44.0); MEAN CORPUSCULAR HEMOGLOBIN 33.7 pg (27.0-33.0); MEAN CORPUSCULAR HGB CONC 33.2 g/dl (32.0-36.5); MEAN CORPUSCULAR VOLUME 101.5 fl (80.0-96.0); MONO # 1.2 10^3/uL (0.0-0.8); MONO % 11.3 % (2.0-8.0); NEUTROPHILS # 7.2 10^3/uL (1.5-8.5); NEUTROPHILS % 65.8 % (36.0-66.0); PLATELET COUNT, AUTOMATED 266 10^3/uL (150-450); WHITE BLOOD COUNT 10.9 10^3/uL (4.0-10.0)
[2021-04-07 05:57] LABS: ALBUMIN 1.8 GM/DL (3.2-5.2); BILIRUBIN,TOTAL 0.2 MG/DL (0.2-1.0); CALCIUM LEVEL 8.7 MG/DL (8.8-10.2); CREATININE FOR GFR 6.09 MG/DL (0.70-1.30); GLOMERULAR FILTRATION RATE 9.7 (>42); MAGNESIUM LEVEL 2.5 MG/DL (1.8-2.4); POTASSIUM SERUM 3.7 MEQ/L (3.5-5.1); TOTAL PROTEIN 5.7 GM/DL (6.4-8.2)
[2021-04-07] MEDS ORDERED: MIDAZOLAM INJ 2MG/2ML VIAL (J2250 PER 1MG) As Ordered ONE (07:32)
[2021-04-07] MEDS ORDERED: LIDOCAINE 2% INJ 100 MG/5 ML SYRINGE As Ordered ONE (07:32)
[2021-04-07] MEDS ORDERED: propofoL 500 MG/50 ML VIAL As Ordered ONE (07:32)
[2021-04-07] MEDS ORDERED: fentaNYL 100 MCG/2 ML INJECTION (J3010) As Ordered ONE (07:33)
[2021-04-07] MEDS ORDERED: LIDOCAINE 2% 100MG/5ML SDV (FOR ANES.) As Ordered ONE (07:34)
[2021-04-07] MEDS: ACETYLCYSTEINE 20% 4 ML VIAL (200MG/ML) INH SCH ×2 (08:00→20:00)
--- NOTE | 2021-04-07 08:54 | REP ---
INDICATION: PERMACATH PLACEMENT. COMPARISON: Portable chest dated 03/28/2021. TECHNIQUE: Portable AP chest with the patient sitting. FINDINGS: Areas of increased parenchymal opacity are again noted in the right upper lobe and right base, not significantly changed. Left lung is clear. Cardiac size is upper normal. There is a left subclavian central venous catheter with the tip in the superior vena cava in satisfactory position, unchanged. There is a tracheostomy, unchanged. IMPRESSION: No significant interval change. <Electronically signed by Juan Manuel Key > 04/07/21 [id number]
[2021-04-07] MEDS: allopurinoL 100 MG TAB GT SCH (09:00)
[2021-04-07] MEDS: METAMUCIL (PSYLLIUM) PACKET PO SCH ×2 (09:00→22:04)
[2021-04-07] MEDS: FAMOTIDINE 20 MG TAB GT SCH ×2 (09:00→22:04)
[2021-04-07] MEDS: HEPARIN SOD (PORCINE) 5000UNITS/ML 1ML VIAL/SYRINGE SQ SCH ×2 (09:00→22:04)
[2021-04-07] MEDS: ATORVASTATIN 20 MG TAB GT SCH (09:00)
[2021-04-07] MEDS: FOLIC ACID 1 MG TAB GT SCH (09:00)
[2021-04-07] MEDS: FLUTICASONE PROP 0.05% NASAL SPRAY 16 GM (FLONASE) NARES SCH ×2 (09:02→22:05)
[2021-04-07] MEDS: SOTALOL HCL 80 MG TAB GT SCH ×2 (09:02→21:00)
[2021-04-07] MEDS: amLODIPine 5 MG TAB GT SCH (09:02)
[2021-04-07] MEDS: SOTALOL 40MG PER 1/2 TABLET PO SCH ×2 (09:02→21:00)
[2021-04-07] MEDS ORDERED: LIDOCAINE 1% SDV 30ML VIAL As Ordered ONE (09:47)
[2021-04-07] MEDS ORDERED: HEPARIN SOD (PORCINE) 5000UNITS/ML 1ML VIAL/SYRINGE As Ordered ONE (09:58)
[2021-04-07] MEDS ORDERED: ONDANSETRON 4MG/2ML VIAL As Ordered ONE (10:59)
[2021-04-07] MEDS ORDERED: ePHEDrine SULFATE 25 MG/5 ML(5MG/ML) SYRINGE As Ordered ONE (11:07)
[2021-04-07] MEDS ORDERED: PHENYLephrine 500MCG 5ML (100MCG/ML) SYRINGE As Ordered ONE (11:07)
--- NOTE | 2021-04-07 11:19 | ROOPDOC ---
[facility] Report Of Operation Report of Operation DATE OF PROCEDURE: 04/07/21 PREPROCEDURE DIAGNOSES: Renal Failure POSTPROCEDURE DIAGNOSES: Renal Failure PROCEDURE PERFORMED: 1. Permacath Placement 2. Ultrasound guided percutaneous entry SURGEON: Geraldo Gomez MD ANESTHESIA: Local and sedation ESTIMATED BLOOD LOSS: Approximately 5 mL. COMPLICATIONS: None REMARKS: None FINDINGS: Tip of catheter in good position SPECIMENS REMOVED: N/A DESCRIPTION OF PROCEDURE: Patient was brought to the OR and placed on the operating table in supine position. After adequate anesthesia was administered, the patient's right neck and chest were prepped and draped in standard surgical fashion. Using ultrasound guidance, percutaneous entry into the right IJ was performed using a micropuncture needle. Over guidewire exchange, a microsheath was placed and a Nitrex wire than passed into the SVC. A separate incision was made on the right anterior chest just below the clavicle and the dialysis catheter was tunneled from the anterior chest incision to the neck puncture site with the Elvin cuff of the catheter located just below the clavicle. Under fluoroscopic guidance, a tear-away sheath was then placed over the wire and into the SVC. The catheter was then placed through the sheath with the tip located at the cavoatrial junction. The sheath was removed and both ports were tested for flow and then flushed with saline solution. IV Heparin was then instilled into both ports. A 2-0 Prolene suture was used to anchor the catheter to the chest and a 4-0 Monocryl suture to close the neck puncture site. Sterile dressings were then placed. GERALDO GOMEZ MD Apr 07, 2021 11:19
[2021-04-07] MEDS ORDERED: ONDANSETRON 4MG/2ML VIAL IV PRN (12:05)
[2021-04-07] MEDS ORDERED: NS 1,000 ML IV SCH (12:05)
[2021-04-07] MEDS ORDERED: oxyCODONE 5MG TAB PO PRN (12:05)
[2021-04-07] MEDS: LEVEMIR (INSULIN DETEMIR) 1 UNITS/0.01ML SC SCH ×2 (12:40→22:05)
--- NOTE | 2021-04-07 13:36 | IPNPDOC ---
Text Note Date of Service The patient was seen on 04/07/21. NOTE Subjective: -No complaints this AM, reports that secretions are not copious anymore and has intermittent suctioning with respiratory therapy and nursing -Is awaiting permacath placement today Objective: Vitals: see below General: Chronically ill appearing, alert and oriented, trach collar in place, NAD HEENT: NC/AT, EOMI, dry mucous membranes CARDIO: RRR, no MRG PULM: CTA b/l, wheezing throughout b/l, no RR ABD: Normoactive bowel sounds, soft, nondistended, nontender SKIN: PEG site clean and w/out signs of infxn; trach site clean w/ min discharge and no signs of infxn or surrounding erythema; chronic venous stasis changes b/l LE; no new blisters/rashes/wounds IMAGING/Bx: Renal US 03/20: Normal urinary tract sonography. CXR 03/21: 1. COPD with some bibasilar patchy infiltrates atelectasis, above the diaphragm on the right and medially in the retrocardiac zone on the left. Bilateral effusions noted. 2. No gross cardiomegaly or dolly edema. Prominence of pulmonary arteries centrally suggest pulmonary artery hypertension, likely on the basis of COPD. 3. New tracheostomy tube since the previous CT in August. Right lung main bronchus, bronchoscopic biopsy: Mainly degenerated inflammatory debris/acute inflammatory cells and entrapped small cluster of highly atypical squamous cells is noted, suspicious for non- small cell carcinoma. Immunostains for TTF-1, P40 and CK7 were performed. The small atypical cluster is positive for P40(squamous cell stain), and negative for TTF-1 but CK7 is non- contributory as the small cluster disappears. CXR 03/24: New infiltrate suspected in the right base consistent with pneumonia. Increased markings in the right apex are also noted. Borderline heart size and vascular congestion.. CXR 03/24: Left subclavian catheter in place. No evidence of pneumothorax. Right upper lobe infiltrate. Question right lower lobe. CXR 03/26: Right base markings appear to be improved. Right upper lobe infiltrate persists. Tracheostomy tube in place. CXR 03/28/21: No new infiltrate. 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 #RLL PNA s/p 10days linezolid, cefepime -Hemodynamically stable, afebrile -Leukocytosis resolved -Blood cx (03/30) negative -Bronchial washing cx + MRSA, +Enterobacter cloacae CRE -continue chest PT and intermittent suctioning -ID and Pulmonology were consulted, appreciate recs #PEG site infxn s/p 10days linezolid, cefepime Wound cx +MRSA, +Enterobacter cloacae CRE ID was consulted, appreciate recs. Tx completed #Trach site infxn s/p 10days linezolid, cefepime ID was consulted, appreciate recs. 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 De Leon 11/2020) - Based on documentation pathology positive for moderately differentiated SCC with positive margins - Patient had refused systemic chemotherapy at the recommendation of radonc - Pt w/ cuffed trach- no complications - Pt pursuing radiation therapy. Radiation therapy to begin 04/08 as per RadOnc - RadOn on consulted #Non-small cell lung CA in [facility] - [facility] on consult #MARK on CKD IV now ESRD. -PermaCath being placed today by vascular surgery -Diet low nitrogen, high water content -Haji catheter in place w/ poor output -Monitor kidney fxn -Nephrology on consult, to begin HD tomorrow per Dr. Cid #Acute metabolic encephalopathy, likely 2/2 hypercarbia and uremia: improved -Currently alert and oriented w/ good mentation #s/p Hypercarbic respiratory failure, possibly 2/2 inability to clear secretions -s/p Positive pressure ventilation -Continue intermittent suctioning, given recent hemoptysis from drop lesion -s/p trach infection tx #Fungal infxn abd folds On Nystatin ointment PRN #HTN- well controlled -On Amlodipine #Paroxysmal atrial fibrillation- rate remains controlled -On Sotalol -On ppx heparin, given recent hemoptysis #DLP On Atorvastatin #DM2 -On Levemir, Insulin SS -FSBG Q6H on tube feeds #GERD -On Famotidine #DVT prophylaxis -Heparin SC BID- monitor for hemoptysis -TEDs and sequentials VS,Fishbone, I+O VS, Fishbone, I+O Laboratory Tests 04/07/21 05:19 Vital Signs Date Time Temp Pulse Resp B/P (MAP) Pulse Ox O2 Delivery O2 Flow Rate FiO2 04/07/21 11:55 97.0 64 18 116/60 (78) 92 Venturi Mask 6.0 28 I&O- Last 24 Hours up to 6 AM 04/07/21 06:00 Intake Total 2148 ml Output Total 225 ml Balance 1923 ml FAREED CARTER MD Apr 07, 2021 13:36
[2021-04-07] MEDS ORDERED: FUROSEMIDE 100MG/10ML VIAL (J1940) IV ONE (14:00)
--- NOTE | 2021-04-07 20:52 | IPN ---
NEPHROLOGY PROGRESS NOTE DATE: 04/07/2021 SUBJECTIVE: Patient was seen and examined at the bedside today morning. Patient just came back after getting tunneled hemodialysis catheter in the right IJ. No significant improvement in the right function and no significant response to the I.V. diuretic after getting 60 mg of Lasix I.V. OBJECTIVE: VITAL SIGNS: Temperature 97.3 degrees Fahrenheit, blood pressure 130/58, pulse 65, respiratory rate 18, saturating 98% on trach collar at 4 liters. INTAKE/OUTPUT: Urine output recorded as only 250 cc yesterday despite getting I.V. Lasix. Weight in the bed scale is 124.7 kg. PHYSICAL EXAMINATION: GENERAL: Patient is awake, lying in bed, obese body habitus. HEAD/NECK: Pupils equally round and reactive to light. Mucous membranes are moist. Neck is supple. He has a trach collar and he has a dressing on the newly placed right IJ tunneled hemodialysis catheter. CVS: S1, S2, regular rate. 2+ edema of the bilateral lower extremities. RESPIRATORY: Mildly decreased breath sounds at the bases. He has a tracheostomy. ABDOMEN: Obese, positive bowel sounds. PEG tube in the epigastrium is noted. GENITOURINARY: He has an indwelling Haji catheter. MUSCULOSKELETAL: Venous stasis changes of the bilateral lower extremities was noted. 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 LABORATORY REVIEW: CBC showed WBC 10.9, hemoglobin 9.1, platelets 266,000. BMP shows sodium 128, potassium 3.7, chloride 96, bicarb 20, BUN 143, creatinine 6.09. MICROBIOLOGY: Urine culture is pending. CURRENT INPATIENT MEDICATIONS: Patient's medications were all reviewed by myself. I gave the patient another dose of Lasix 80 mg I.V. times one dose. No other significant change in the medications today as compared with yesterday. ASSESSMENT AND PLAN: 1. Acute renal failure superimposed on chronic kidney disease: Patient is in oliguric renal failure. Patient got right IJ tunneled hemodialysis catheter. He will be started on dialysis tomorrow and I would also try to remove some fluid during hemodialysis. 2. Infection of the tracheostomy site: Patient is on I.V. antibiotics. Repeat cultures are negative. 3. Anemia and renal failure: He was started on Aranesp yesterday. Hemoglobin level is stable and improving. From next week onwards, he will be given Aranesp with hemodialysis. 4. Protein calorie malnutrition: Continue Nepro with free water. 5. Lower extremity edema: Patient is oliguric and getting liquid diet. Edema will be optimized with hemodialysis. He is not responding to diuretics.
[2021-04-08] MEDS: IPRATROPIUM 0.5MG/ALBUTEROL 2.5MG INH SOL UD 3ML (DUONEB) NEB SCH ×6 (03:59→23:28)
[2021-04-08] MEDS: FOLIC ACID 1 MG TAB GT SCH (05:58)
[2021-04-08] MEDS: METAMUCIL (PSYLLIUM) PACKET PO SCH ×2 (05:58→21:23)
[2021-04-08] MEDS: SODIUM CHLORIDE 0.9% INJ 10 ML SYR IV SCH ×3 (05:58→21:24)
[2021-04-08] MEDS: allopurinoL 100 MG TAB GT SCH (05:59)
[2021-04-08] MEDS: amLODIPine 5 MG TAB GT SCH (05:59)
[2021-04-08] MEDS: ATORVASTATIN 20 MG TAB GT SCH (05:59)
[2021-04-08 06:00] VITALS: BP 121/56
[2021-04-08] MEDS: HEPARIN SOD (PORCINE) 5000UNITS/ML 1ML VIAL/SYRINGE SQ SCH ×2 (06:00→21:23)
[2021-04-08] MEDS: FAMOTIDINE 20 MG TAB GT SCH ×2 (06:00→21:23)
[2021-04-08] MEDS: FLUTICASONE PROP 0.05% NASAL SPRAY 16 GM (FLONASE) NARES SCH ×2 (06:00→21:24)
[2021-04-08] MEDS: HumaLOG INSULIN (NovoLOG) PER UNIT SC SCH ×3 (06:09→18:11)
[2021-04-08] MEDS: ACETYLCYSTEINE 20% 4 ML VIAL (200MG/ML) INH SCH ×2 (07:43→19:18)
[2021-04-08] MEDS: SOTALOL HCL 80 MG TAB GT SCH ×2 (07:43→18:39)
[2021-04-08] MEDS: SOTALOL 40MG PER 1/2 TABLET PO SCH ×2 (07:44→18:40)
[2021-04-08] MEDS: LEVEMIR (INSULIN DETEMIR) 1 UNITS/0.01ML SC SCH ×2 (07:50→21:24)
--- NOTE | 2021-04-08 09:56 | REP ---
INDICATION: PERMACATH PLACEMENT. COMPARISON: None. TECHNIQUE: A single fluoroscopic spot film of the right chest. 9.4 seconds of fluoroscopy time. FINDINGS: A single last image hold fluoroscopically obtained spot radiograph of the chest documents tunnel catheter central venous line position. IMPRESSION: Procedural imaging. <Electronically signed by Chin Ann > 04/08/21 0936
--- NOTE | 2021-04-08 10:04 | RADENCPD ---
Date/Time of Encounter Date of Encounter: Apr 08, 2021 Time of Encounter: 10:01 Encounter Plan to start RT today or tomorrow contingent upon dialysis schedule. Tre will receive 70 Gy in 35 once-daily fractions to the head and neck. 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 ABDI ARENAS MD Apr 08, 2021 10:04
--- NOTE | 2021-04-08 10:26 | IPNPDOC ---
Text Note Date of Service The patient was seen on 04/08/21. NOTE Subjective: -No complaints this AM -s/p permacath yesterday, no acute complaints, pain well controlled Objective: Vitals: see below General: Chronically ill appearing, alert and oriented, trach collar in place, NAD HEENT: NC/AT, EOMI, dry mucous membranes CARDIO: RRR, no MRG PULM: CTA b/l, wheezing throughout b/l, no RR ABD: Normoactive bowel sounds, soft, nondistended, nontender SKIN: PEG site clean and w/out signs of infxn; trach site clean w/ no discharge and no signs of infxn or surrounding erythema; permacath site in RU chest with dressing in place, c/d/i, chronic venous stasis changes b/l LE; no new blisters/rashes/wounds LABS: Reviewed IMAGING/Bx: Renal US 03/20: Normal urinary tract sonography. CXR 03/21: 1. COPD with some bibasilar patchy infiltrates atelectasis, above the diaphragm on the right and medially in the retrocardiac zone on the left. Bilateral effusions noted. 2. No gross cardiomegaly or dolly edema. Prominence of pulmonary arteries centrally suggest pulmonary artery hypertension, likely on the basis of COPD. 3. New tracheostomy tube since the previous CT in August. Right lung main bronchus, bronchoscopic biopsy: Mainly degenerated inflammatory debris/acute inflammatory cells and entrapped small cluster of highly atypical squamous cells is noted, suspicious for non- small cell carcinoma. Immunostains for TTF-1, P40 and CK7 were performed. The small atypical cluster is positive for P40(squamous cell stain), and negative for TTF-1 but CK7 is non- contributory as the small cluster disappears. CXR 03/24: New infiltrate suspected in the right base consistent with pneumonia. Increased markings in the right apex are also noted. Borderline heart size and vascular congestion.. CXR 03/24: Left subclavian catheter in place. No evidence of pneumothorax. Right upper lobe infiltrate. Question right lower lobe. CXR 03/26: Right base markings appear to be improved. Right upper lobe infiltrate persists. Tracheostomy tube in place. CXR 03/28/21: No new infiltrate. 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 #RLL PNA s/p 10days linezolid, cefepime -Hemodynamically stable, afebrile -Leukocytosis resolved -Blood cx (03/30) negative -Bronchial washing cx + MRSA, +Enterobacter cloacae CRE -continue chest PT and intermittent suctioning -ID and Pulmonology were consulted, appreciate recs #PEG site infxn s/p 10days linezolid, cefepime Wound cx +MRSA, +Enterobacter cloacae CRE ID was consulted, appreciate recs. Tx completed #Trach site infxn s/p 10days linezolid, cefepime ID was consulted, appreciate recs. 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 De Leon 11/2020) - Based on documentation pathology positive for moderately differentiated SCC with positive margins - Patient had refused systemic chemotherapy at the recommendation of radonc - Pt w/ cuffed trach- no complications - Pt pursuing radiation therapy. Radiation therapy to begin 04/08 as per RadOnc - Radonc consulted #Non-small cell lung CA in [facility] - [facility] on consult #MARK on CKD IV now ESRD. -PermaCath placed by vascular surgery on 04/07/2021 -Diet low nitrogen, high water content -Haji catheter in place w/ poor output -Monitor kidney fxn -Beginning HD today, nephrology onboard #Acute metabolic encephalopathy, likely 2/2 hypercarbia and uremia: improved -Currently alert and oriented w/ good mentation #s/p Hypercarbic respiratory failure, possibly 2/2 inability to clear secretions -s/p Positive pressure ventilation -Continue intermittent suctioning, given recent hemoptysis from drop lesion -s/p trach infection tx #Fungal infxn abd folds On Nystatin ointment PRN #HTN- well controlled -On Amlodipine #Paroxysmal atrial fibrillation- rate remains controlled -On Sotalol -On ppx heparin, given recent hemoptysis #DLP On Atorvastatin #DM2 -On Levemir, Insulin SS -FSBG Q6H on tube feeds #GERD -On Famotidine #DVT prophylaxis -Heparin SC BID- monitor for hemoptysis -TEDs and sequentials VS,Fishbone, I+O VS, Fishbone, I+O Vital Signs Date Time Temp Pulse Resp B/P (MAP) Pulse Ox O2 Delivery O2 Flow Rate FiO2 04/08/21 07:44 64 121/56 04/08/21 06:00 97.1 18 98 Trach Collar 4.0 04/07/21 23:14 28 I&O- Last 24 Hours up to 6 AM 04/08/21 06:00 Intake Total 1804 ml Output Total 140 ml Balance 1664 ml FAREED CARTER MD Apr 08, 2021 10:26
--- NOTE | 2021-04-08 11:49 | IPN ---
PROGRESS NOTE DATE: 04/08/2021 SUBJECTIVE: Patient was seen and examined at the bedside today morning. He was getting his nebulizations when I saw him and he is having some active cough as well. Patient is going to have his first session of hemodialysis today. He is not responding to the diuretics and he remains oliguric. OBJECTIVE: VITAL SIGNS: Temperature is 97.1 degrees Fahrenheit, blood pressure is 121/56, pulse is 64, respiratory rate is 18, saturating 98% on trach collar at 4 liters. INTAKE AND OUTPUT: Urine output recorded as 210 ml yesterday. Weight on the bed scale is 127.7 kg which is 3 kg above his weight yesterday. GENERAL: Patient is awake laying in bed getting nebulizations done. Obese body habitus. HEAD AND NECK: Pupils are equally round and reactive to light. Mucous membranes are moist. Neck is supple. He has a tracheostomy. CARDIOVASCULAR: S1 and S2, regular rate. There is 2+ edema of the bilateral lower extremities. 1+ edema of the bilateral lower extremities. He has a right IJ tunneled hemodialysis catheter. RESPIRATORY: Decreased breath sounds bilaterally at the bases. ABDOMEN: Soft, obese, positive bowel sounds. Abdominal wall edema is noted. He has a PEG tube in the epigastrium. GENITOURINARY: He has an indwelling Haji catheter, very cloudy urine is seen in the bag. MUSCULOSKELETAL: No clubbing or cyanosis. Pulses are 2+. AUTOMATIC LATHE TENDER: Patient is able to follow commands and move the extremities. LABORATORY DATA: CBC is from yesterday and BMP is also from yesterday with a potassium of 3.7 and a creatinine of 6.09. Microbiology: Urine culture came back with more than 100,000 yeast like organisms. CURRENT INPATIENT MEDICATIONS: Patient's medications were all reviewed by myself. No significant change in the medications today. ASSESSMENT AND PLAN: 1. Acute renal failure superimposed on chronic kidney disease. Patient has approached endstage renal disease, he is oliguric, he did not respond to diuretics. He got a tunneled dialysis catheter placed yesterday. He is going to start his first session of dialysis today, the second session will be done tomorrow morning. 2. Yeast infection of the urine. Patient is going to be started on fluconazole and depending upon the nature of the infection, antifungal will be changed. 3. Anemia and renal failure. Patient was given Aranesp. He will be started on IV Aranesp with dialysis now. 4. Protein calorie malnutrition. Continue Nepro and free water. 5. Lower extremity edema. Volume status will be optimized with dialysis. I will try to remove some fluid today and the rest of the fluid will be removed tomorrow morning.
[2021-04-08 14:00] VITALS: BP 90/44
[2021-04-08] MEDS: MICAFUNGIN SODIUM 100 MG in D5W MINI-BAG PLUS 100 ML IV SCH (14:30)
[2021-04-08 22:00] VITALS: BP 103/60
[2021-04-09] MEDS: HumaLOG INSULIN (NovoLOG) PER UNIT SC SCH ×4 (00:15→17:54)
[2021-04-09] MEDS: IPRATROPIUM 0.5MG/ALBUTEROL 2.5MG INH SOL UD 3ML (DUONEB) NEB SCH ×5 (03:40→19:31)
[2021-04-09] MEDS: SODIUM CHLORIDE 0.9% INJ 10 ML SYR IV SCH ×3 (05:29→21:40)
[2021-04-09 05:59] LABS: HEMATOCRIT 26.1 % (42.0-52.0); HEMOGLOBIN 8.7 g/dl (13.5-17.5); MEAN CORPUSCULAR HEMOGLOBIN 33.7 pg (27.0-33.0); MEAN CORPUSCULAR HGB CONC 33.3 g/dl (32.0-36.5); MEAN CORPUSCULAR VOLUME 101.2 fl (80.0-96.0); PLATELET COUNT, AUTOMATED 236 10^3/uL (150-450); RED BLOOD COUNT 2.58 10^6/uL (4.30-6.10)
[2021-04-09 06:00] VITALS: BP 130/60
[2021-04-09 06:03] LABS: CALCIUM LEVEL 9.1 MG/DL (8.8-10.2); CREATININE FOR GFR 5.89 MG/DL (0.70-1.30); GLOMERULAR FILTRATION RATE 10.1 (>42); POTASSIUM SERUM 3.8 MEQ/L (3.5-5.1)
[2021-04-09] MEDS: ACETYLCYSTEINE 20% 4 ML VIAL (200MG/ML) INH SCH ×2 (07:42→19:31)
[2021-04-09] MEDS: DARBEPOETIN 200MCG/0.4ML *DIALYSIS* SYRINGE (J0882 PER 1MCG) IV SCH (10:16)
--- NOTE | 2021-04-09 12:19 | RADENCPD ---
Date/Time of Encounter Date of Encounter: Apr 09, 2021 Time of Encounter: 12:18 Encounter Tre was unable to tolerate his first fraction of RT today. He seemed orthopneic, but also confused, and was pulling at his trach collar O2 continuously despite redirection. We will attempt treatment again tomorrow. ABDI ARENAS MD Apr 09, 2021 12:19
[2021-04-09] MEDS: METAMUCIL (PSYLLIUM) PACKET PO SCH ×2 (13:23→21:38)
[2021-04-09] MEDS: FAMOTIDINE 20 MG TAB GT SCH ×2 (13:23→21:38)
[2021-04-09] MEDS: FOLIC ACID 1 MG TAB GT SCH (13:23)
[2021-04-09] MEDS: ATORVASTATIN 20 MG TAB GT SCH (13:24)
[2021-04-09] MEDS: allopurinoL 100 MG TAB GT SCH (13:24)
[2021-04-09] MEDS: MICAFUNGIN SODIUM 100 MG in D5W MINI-BAG PLUS 100 ML IV SCH (13:24)
[2021-04-09] MEDS: LEVEMIR (INSULIN DETEMIR) 1 UNITS/0.01ML SC SCH ×2 (13:25→21:39)
[2021-04-09] MEDS: HEPARIN SOD (PORCINE) 5000UNITS/ML 1ML VIAL/SYRINGE SQ SCH ×2 (13:25→21:39)
[2021-04-09] MEDS: FLUTICASONE PROP 0.05% NASAL SPRAY 16 GM (FLONASE) NARES SCH ×2 (13:26→21:40)
[2021-04-09 14:00] VITALS: BP 135/65
[2021-04-09 14:25] VITALS: BP 138/63
--- NOTE | 2021-04-09 14:48 | IPNPDOC ---
Text Note Date of Service The patient was seen on 04/09/21. NOTE Subjective: -No complaints this AM -tolerated HD yesterday, however with low BPs in late afternoon, asymptomatic, did not receive PM sotalol. Objective: Vitals: see below General: Chronically ill appearing, alert and oriented, trach collar in place, NAD HEENT: NC/AT, EOMI, dry mucous membranes CARDIO: RRR, no MRG PULM: CTA b/l, wheezing throughout b/l, no RR ABD: Normoactive bowel sounds, soft, nondistended, nontender SKIN: PEG site clean and w/out signs of infxn; trach site clean w/ no discharge and no signs of infxn or surrounding erythema; permacath site in RU chest with dressing in place, c/d/i, chronic venous stasis changes b/l LE; no new blisters/rashes/wounds LABS: Reviewed IMAGING/Bx: Renal US 03/20: Normal urinary tract sonography. CXR 03/21: 1. COPD with some bibasilar patchy infiltrates atelectasis, above the diaphragm on the right and medially in the retrocardiac zone on the left. Bilateral effusions noted. 2. No gross cardiomegaly or dolly edema. Prominence of pulmonary arteries centrally suggest pulmonary artery hypertension, likely on the basis of COPD. 3. New tracheostomy tube since the previous CT in August. Right lung main bronchus, bronchoscopic biopsy: Mainly degenerated inflammatory debris/acute inflammatory cells and entrapped small cluster of highly atypical squamous cells is noted, suspicious for non- small cell carcinoma. Immunostains for TTF-1, P40 and CK7 were performed. The small atypical cluster is positive for P40(squamous cell stain), and negative for TTF-1 but CK7 is non- contributory as the small cluster disappears. CXR 03/24: New infiltrate suspected in the right base consistent with pneumonia. Increased markings in the right apex are also noted. Borderline heart size and vascular congestion.. CXR 03/24: Left subclavian catheter in place. No evidence of pneumothorax. Right upper lobe infiltrate. Question right lower lobe. CXR 03/26: Right base markings appear to be improved. Right upper lobe infiltrate persists. Tracheostomy tube in place. CXR 03/28/21: No new infiltrate. 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 #RLL PNA s/p 10days linezolid, cefepime -Hemodynamically stable, afebrile -Leukocytosis resolved -Blood cx (03/30) negative -Bronchial washing cx + MRSA, +Enterobacter cloacae CRE -continue chest PT and intermittent suctioning -ID and Pulmonology were consulted, appreciate recs #PEG site infxn s/p 10days linezolid, cefepime Wound cx +MRSA, +Enterobacter cloacae CRE ID was consulted, appreciate recs. Tx completed #Trach site infxn s/p 10days linezolid, cefepime ID was consulted, appreciate recs. Tx completed #Urinary yeast infection -Not sure why he was placed on fungin therapy instead of 1st line azole without evidence of azole resistance, perhaps due to renal disease, but now on HD. Either way day 2 of micafungin per nephrology. 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 De Leon 11/2020) - Based on documentation pathology positive for moderately differentiated SCC with positive margins - Patient had refused systemic chemotherapy - Pt w/ cuffed trach- no complications - Begun radiation therapy 04/08. RadOn onboard #Non-small cell lung CA in [facility] - [facility] on consult #MARK on CKD V now ESRD. -PermaCath placed by vascular surgery on 04/07/2021 -Diet low nitrogen, high water content -Haji catheter in place w/ poor output -Monitor kidney fxn -On HD, nephrology onboard #Acute metabolic encephalopathy, likely 2/2 hypercarbia and uremia: improved -Currently alert and oriented w/ good mentation #s/p Hypercarbic respiratory failure, possibly 2/2 inability to clear secretions -s/p Positive pressure ventilation -Continue intermittent suctioning, given recent hemoptysis from drop lesion -s/p trach infection tx #Fungal infxn abd folds On Nystatin ointment PRN #HTN- well controlled -Dc'd amlodipine now on HD with post HD hypotension. Will continue on BID sotalol #Paroxysmal atrial fibrillation- rate remains controlled -On Sotalol -On ppx heparin, given recent hemoptysis #DLP On Atorvastatin #DM2 -On Levemir, Insulin SS -FSBG Q6H on tube feeds #GERD -On Famotidine #DVT prophylaxis -Heparin SC BID- monitor for hemoptysis -TEDs and sequentials VS,Fishbone, I+O VS, Fishbone, I+O Laboratory Tests 04/09/21 05:27 Vital Signs Date Time Temp Pulse Resp B/P (MAP) Pulse Ox O2 Delivery O2 Flow Rate FiO2 04/09/21 06:00 97.5 94 20 130/60 (83) 93 Trach Collar 8.0 04/08/21 21:30 28 I&O- Last 24 Hours up to 6 AM 04/09/21 06:00 Intake Total 2244 ml Output Total 1825 ml Balance 419 ml FAREED CARTER MD Apr 09, 2021 07:29
[2021-04-09] MEDS: SOTALOL HCL 80 MG TAB GT SCH ×2 (15:06→20:10)
[2021-04-09] MEDS: ACETAMINOPHEN TAB 650MG DOSE (2X325MG) PO PRN (21:38)
[2021-04-09 22:00] VITALS: BP 101/95
[2021-04-10] MEDS: HumaLOG INSULIN (NovoLOG) PER UNIT SC SCH ×5 (00:13→23:49)
[2021-04-10] MEDS: IPRATROPIUM 0.5MG/ALBUTEROL 2.5MG INH SOL UD 3ML (DUONEB) NEB SCH ×6 (01:36→20:00)
[2021-04-10 05:24] LABS: HEMATOCRIT 25.5 % (42.0-52.0); HEMOGLOBIN 8.7 g/dl (13.5-17.5); MEAN CORPUSCULAR HEMOGLOBIN 34.1 pg (27.0-33.0); MEAN CORPUSCULAR HGB CONC 34.1 g/dl (32.0-36.5); PLATELET COUNT, AUTOMATED 237 10^3/uL (150-450); RED BLOOD COUNT 2.55 10^6/uL (4.30-6.10); WHITE BLOOD COUNT 12.4 10^3/uL (4.0-10.0)
[2021-04-10] MEDS: SODIUM CHLORIDE 0.9% INJ 10 ML SYR IV SCH ×3 (05:31→21:38)
[2021-04-10 05:37] VITALS: BP 137/63
[2021-04-10 05:55] LABS: CALCIUM LEVEL 8.9 MG/DL (8.8-10.2); CREATININE FOR GFR 4.24 MG/DL (0.70-1.30); GLOMERULAR FILTRATION RATE 14.8 (>42); POTASSIUM SERUM 3.6 MEQ/L (3.5-5.1)
--- NOTE | 2021-04-10 06:58 | IPNPDOC ---
Text Note Date of Service The patient was seen on 04/10/21. NOTE Time of service 635am The patient has been agitated and pulled out his feeding tube. At the time of my assessment the patient denied having any pain. PE: abdomen distended, he doesn't grimace w palpation, soft / abdominal incision covered w clean and dry dressings #Delerium ? Plan: f/u AM labs and vitals #Disloged PEG Plan: will ask the day time Attending to consult Gen Surg to replace the PEG and decide if the pt needs a CT of the abdomen to confirm that the tube feeds have not extravised into the peritoneum VS,Fishbone, I+O VS, Fishbone, I+O Laboratory Tests 04/10/21 05:10 Vital Signs Date Time Temp Pulse Resp B/P (MAP) Pulse Ox O2 Delivery O2 Flow Rate FiO2 04/10/21 05:37 98.5 83 18 137/63 (87) 96 Trach Collar 5.0 28 I&O- Last 24 Hours up to 6 AM 04/10/21 06:00 Intake Total 1711 ml Output Total 2650 ml Balance -939 ml CHRISTIANO REGALADO MD Apr 10, 2021 06:58
[2021-04-10] MEDS: ACETYLCYSTEINE 20% 4 ML VIAL (200MG/ML) INH SCH ×2 (07:17→20:00)
[2021-04-10] MEDS: ACETAMINOPHEN TAB 650MG DOSE (2X325MG) PO PRN (11:31)
[2021-04-10] MEDS: ATORVASTATIN 20 MG TAB GT SCH (11:32)
[2021-04-10] MEDS: HEPARIN SOD (PORCINE) 5000UNITS/ML 1ML VIAL/SYRINGE SQ SCH ×2 (11:32→21:38)
[2021-04-10] MEDS: FOLIC ACID 1 MG TAB GT SCH (11:32)
[2021-04-10] MEDS: allopurinoL 100 MG TAB GT SCH (11:32)
[2021-04-10] MEDS: FAMOTIDINE 20 MG TAB GT SCH ×2 (11:32→21:38)
[2021-04-10] MEDS: SOTALOL HCL 80 MG TAB GT SCH ×2 (11:36→21:39)
[2021-04-10] MEDS: LEVEMIR (INSULIN DETEMIR) 1 UNITS/0.01ML SC SCH ×2 (11:39→21:38)
--- NOTE | 2021-04-10 11:48 | IPNPDOC ---
Text Note Date of Service The patient was seen on 04/10/21. NOTE Subjective: -No complaints this AM -tolerating HD -did not have XRT, anxious, restless -Overnight pulled at PEG, trach and riddle. PEG suspected to have dislodged, tube feeds were held. c/f encephalopathy Objective: Vitals: see below General: Chronically ill appearing, sleeping, awake on voice, has mitts in place, trach collar in place, NAD HEENT: NC/AT, EOMI, dry mucous membranes CARDIO: RRR, no MRG PULM: CTA b/l, wheezing throughout b/l, no RR ABD: Normoactive bowel sounds, soft, nondistended, nontender SKIN: PEG site w/out signs of infxn; trach site clean w/ no significant discharge and no surrounding erythema; permacath site in RU chest with dressing in place, c/d/i, chronic venous stasis changes b/l LE PSYCH: Aox3 LABS: Reviewed WBC 12.4 Hgb 8.7 platelets 237 na 132 K 3.6 BUN 63 Cr 4.24 IMAGING/Bx: Renal US 03/20: Normal urinary tract sonography. CXR 03/21: 1. COPD with some bibasilar patchy infiltrates atelectasis, above the diaphragm on the right and medially in the retrocardiac zone on the left. Bilateral effusions noted. 2. No gross cardiomegaly or dolly edema. Prominence of pulmonary arteries centrally suggest pulmonary artery hypertension, likely on the basis of COPD. 3. New tracheostomy tube since the previous CT in August. Right lung main bronchus, bronchoscopic biopsy: Mainly degenerated inflammatory debris/acute inflammatory cells and entrapped small cluster of highly atypical squamous cells is noted, suspicious for non- small cell carcinoma. Immunostains for TTF-1, P40 and CK7 were performed. The small atypical cluster is positive for P40(squamous cell stain), and negative for TTF-1 but CK7 is non- contributory as the small cluster disappears. CXR 03/24: New infiltrate suspected in the right base consistent with pneumonia. Increased markings in the right apex are also noted. Borderline heart size and vascular congestion.. CXR 03/24: Left subclavian catheter in place. No evidence of pneumothorax. Right upper lobe infiltrate. Question right lower lobe. CXR 03/26: Right base markings appear to be improved. Right upper lobe infiltrate persists. Tracheostomy tube in place. CXR 03/28/21: No new infiltrate. 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 #RLL PNA s/p 10days linezolid, cefepime -Hemodynamically stable, afebrile -Leukocytosis resolved -Blood cx (03/30) negative -Bronchial washing cx + MRSA, +Enterobacter cloacae CRE -continue chest PT and intermittent suctioning -ID and Pulmonology were consulted, appreciate recs #PEG site infxn s/p 10days linezolid, cefepime Wound cx +MRSA, +Enterobacter cloacae CRE ID was consulted, appreciate recs. Tx completed #PEG tube leakage w/ c/f dislodgement after patient pulled it overnight -consulted Dr. Crooks, 04/10, placed it back into position at bedside #Trach site infxn s/p 10days linezolid, cefepime ID was consulted, appreciate recs. Tx completed #Urinary yeast infection -Was placed on echinocandin therapy instead of 1st line azole, perhaps due to renal disease, on HD. Day 3 of micafungin per nephrology. 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 De Leon 11/2020) - Based on documentation pathology positive for moderately differentiated SCC with positive margins - Patient had refused systemic chemotherapy - Pt w/ cuffed trach- no complications - Patient has not yet begun radiation therapy. RadOnc onboard #Non-small cell lung CA in [facility] - [facility] on consult #MARK on CKD V now ESRD. -PermaCath placed by vascular surgery on 04/07/2021 -Diet low nitrogen, high water content -Riddle catheter in place w/ poor output -Monitor kidney fxn -On HD, nephrology onboard #Acute metabolic encephalopathy, likely 2/2 hypercarbia and uremia: Had improved but had some confusion overnight with pulling of tubes, otherwise doing well -Currently without agitation and AOx3 #s/p Hypercarbic respiratory failure, possibly 2/2 inability to clear secretions -s/p Positive pressure ventilation -Continue intermittent suctioning, given recent hemoptysis from drop lesion -s/p trach infection tx #Fungal infxn abd folds On Nystatin ointment PRN #HTN- well controlled -Dc'd amlodipine now on HD with post HD hypotension. Will continue on sotalol #Paroxysmal atrial fibrillation- rate remains controlled -On Sotalol -On ppx heparin, given recent hemoptysis #DLP On Atorvastatin #DM2 -On Levemir, Insulin SS -FSBG Q6H on tube feeds #GERD -On Famotidine #DVT prophylaxis -Heparin SC BID- monitor for hemoptysis -TEDs and sequentials VS,Fishbone, I+O VS, Fishbone, I+O Laboratory Tests 04/10/21 05:10 Vital Signs Date Time Temp Pulse Resp B/P (MAP) Pulse Ox O2 Delivery O2 Flow Rate FiO2 04/10/21 05:37 98.5 83 18 137/63 (87) 96 Trach Collar 5.0 28 I&O- Last 24 Hours up to 6 AM 04/10/21 05:59 Intake Total 1174 ml Output Total 2500 ml Balance -1326 ml FAREED CARTER MD Apr 10, 2021 08:17
[2021-04-10 13:19] LABS: CLOSTRIDIUM DIFFICILE PCR NEGATIVE (NEGATIVE)
[2021-04-10] MEDS: MICAFUNGIN SODIUM 100 MG in D5W MINI-BAG PLUS 100 ML IV SCH (13:31)
[2021-04-10] MEDS: FLUTICASONE PROP 0.05% NASAL SPRAY 16 GM (FLONASE) NARES SCH ×2 (13:31→21:39)
[2021-04-10 14:00] VITALS: BP 124/68
--- NOTE | 2021-04-10 14:11 | CR ---
CONSULTATION DATE: 04/10/2021 REASON FOR CONSULTATION: Gastrostomy tube dislodged. BRIEF HISTORY OF PRESENT ILLNESS: The patient is a 70-year-old male who has a history of laryngectomy, laryngeal cancer, and has had tube feedings for a prolonged period of time. He has had some medical issues since his admission, almost a month ago with infectious process, etc., but has essentially his gastrostomy tube came out last night and I am asked to see him this morning for additional recommendations/replacement of the tube. PAST MEDICAL HISTORY: The patient's past medical history is significant for: 1. History of chronic kidney disease. 2. History of type 2 diabetes mellitus. 3. Gout. 4. Hypertension. 5. Hyperlipidemia. 6. Small cell carcinoma. PAST SURGICAL HISTORY: The patient's past surgical history is significant for: 1. PEG tube placement. 2. Laryngectomy. 3. Cardiac stent. PHYSICAL EXAMINATION: GENERAL APPEARANCE: A 70-year-old who looks stated age. HEENT: Normocephalic and atraumatic head. He has a tracheostomy in place and he has rhonchorous breath sounds bilaterally. ABDOMEN: Soft, nontender. He has a gastrostomy tube site that I was able to probe with Q-tip and this was patent and thus the gastrostomy tube was inserted back into this, balloon insufflated and the tube aspirated and flushed without difficulty. IMPRESSION AND PLAN: The patient had a J-tube that was dislodged. It was replaced without difficulty and the patient will continue on his routine medications/tube feeds as previously ordered.
--- NOTE | 2021-04-10 17:45 | IPN ---
NEPHROLOGY PROGRESS NOTE DATE: 04/10/2021 SUBJECTIVE: Patient was seen and examined at the bedside today morning. I was told by the nursing staff that patient was dialyzed yesterday and at nighttime he was slightly confused. He tried to pull his PEG tube out. He pulled his I.V. lines. Right now, his mentation is better and his temperature spike as well at nighttime with a temperature of 100.4 degrees Fahrenheit. OBJECTIVE: VITAL SIGNS: Temperature 98.2 degrees Fahrenheit, blood pressure 124/68, pulse 84, respiratory rate 16, saturating 97% on trach collar with 5 liters. INTAKE/OUTPUT: Urine output recorded as 150 mL. Fluid removal with dialysis yesterday was 2.5 liters. Weight in the bed scale is 127 kg. PHYSICAL EXAMINATION: GENERAL: Patient is awake. He tries to communicate, He tried to write something for me on the paper, but it was only scribbling and I could not understand anything. HEAD/NECK: Extraocular muscles intact. Pupils equally round and reactive to light. Neck is supple. He has a trach collar. CVS: S1, S2, regular rate. 2+ edema of the bilateral lower extremities. RESPIRATORY: Mildly decreased breath sounds at the bases bilaterally. ABDOMEN: Soft, obese, positive bowel sounds. PEG tube in the epigastrium is noted. MUSCULOSKELETAL: Chronic venous stasis changes and edema of the lower extremity was noted. DIGESTER HAND: Patient is awake, able to follow commands and moves extremities. LABORATORY REVIEW: CBC showed WBC 12.4, hemoglobin 8.7, platelets 237,000. BMP shows sodium 132, potassium 3.6, chloride 102, bicarb 22, BUN 63, creatinine 4.2. Calcium 8.9. CURRENT INPATIENT MEDICATIONS: Patient's medications were all reviewed by myself. No significant change in the medications today as compared with yesterday. ASSESSMENT AND PLAN: 1. End-stage renal disease: Patient was dialyzed two days in a row. Next hemodialysis will be done tomorrow morning. 2. Lower extremity edema and volume overload: Patient will get further fluid removal with dialysis. He did not respond to I.V. diuretics. 3. Yeast infection of the urine: Patient is on I.V. Micafungin for one week. 4. Anemia and renal failure: Continue current dose of Aranesp. Hemoglobin level is stable.
[2021-04-10 21:46] VITALS: BP 129/59
[2021-04-11] MEDS: IPRATROPIUM 0.5MG/ALBUTEROL 2.5MG INH SOL UD 3ML (DUONEB) NEB SCH ×7 (00:23→23:25)
[2021-04-11 05:14] LABS: HEMATOCRIT 25.7 % (42.0-52.0); HEMOGLOBIN 8.6 g/dl (13.5-17.5); MEAN CORPUSCULAR HEMOGLOBIN 33.6 pg (27.0-33.0); MEAN CORPUSCULAR HGB CONC 33.5 g/dl (32.0-36.5); MEAN CORPUSCULAR VOLUME 100.4 fl (80.0-96.0); PLATELET COUNT, AUTOMATED 275 10^3/uL (150-450); RED BLOOD COUNT 2.56 10^6/uL (4.30-6.10); WHITE BLOOD COUNT 12.9 10^3/uL (4.0-10.0)
[2021-04-11] MEDS: HEPARIN SOD (PORCINE) 5000UNITS/ML 1ML VIAL/SYRINGE SQ SCH ×2 (05:21→21:42)
[2021-04-11] MEDS: SODIUM CHLORIDE 0.9% INJ 10 ML SYR IV SCH ×3 (05:22→21:41)
[2021-04-11] MEDS: ATORVASTATIN 20 MG TAB GT SCH (05:22)
[2021-04-11] MEDS: allopurinoL 100 MG TAB GT SCH (05:22)
[2021-04-11] MEDS: FAMOTIDINE 20 MG TAB GT SCH ×2 (05:23→21:41)
[2021-04-11] MEDS: FOLIC ACID 1 MG TAB GT SCH (05:23)
[2021-04-11] MEDS: SOTALOL HCL 80 MG TAB GT SCH ×2 (05:23→21:40)
[2021-04-11] MEDS: FLUTICASONE PROP 0.05% NASAL SPRAY 16 GM (FLONASE) NARES SCH ×2 (05:24→21:42)
[2021-04-11 05:44] LABS: CALCIUM LEVEL 9.5 MG/DL (8.8-10.2); CREATININE FOR GFR 5.04 MG/DL (0.70-1.30); GLOMERULAR FILTRATION RATE 12.1 (>42); POTASSIUM SERUM 3.4 MEQ/L (3.5-5.1)
[2021-04-11 06:01] VITALS: BP 110/63
[2021-04-11] MEDS: HumaLOG INSULIN (NovoLOG) PER UNIT SC SCH ×3 (06:28→16:57)
[2021-04-11] MEDS: LEVEMIR (INSULIN DETEMIR) 1 UNITS/0.01ML SC SCH ×2 (06:29→21:40)
[2021-04-11] MEDS: ACETYLCYSTEINE 20% 4 ML VIAL (200MG/ML) INH SCH ×2 (07:09→19:14)
[2021-04-11] MEDS ORDERED: POTASSIUM CHLORIDE 10 MEQ SR TABLET PO ONE (10:15)
--- NOTE | 2021-04-11 13:11 | IPN ---
PROGRESS NOTE DATE: 04/11/2021 SUBJECTIVE: Patient was seen and examined at the bedside today morning during hemodialysis procedure. He is tolerating the hemodialysis procedure well. He denies any active complaints at this time. OBJECTIVE: VITAL SIGNS: Temperature is 99.5 degrees Fahrenheit, blood pressure is 110/63, pulse is 72, respiratory rate 17, saturating 96% on trach collar at 5 liters. INPUT AND OUTPUT: Urine output recorded as only 50 ml. Weight on the bed scale is 127.1 kg. GENERAL: Patient is awake, alert and oriented x3, laying in bed, getting hemodialysis done. HEAD AND NECK: Pupils are equally round and reactive to light. Neck is supple. He has a trach collar. CARDIOVASCULAR: S1 and S2, 2+ edema of the bilateral lower extremities. 1+ edema of the upper extremities. RESPIRATORY: Mildly decreased breath sounds at the bases. No active rales or rhonchi. ABDOMEN: Soft, positive bowel sounds. He has a PEG tube in the epigastrium. MUSCULOSKELETAL: Mild erythema of the lower extremities was noted. Edema of the lower extremities as mentioned above. DIE CASTING SUPERVISOR: No focal deficit. Patient is following commands, moves extremities. LABORATORY DATA: CBC showed a WBC of 12.9, hemoglobin of 8.6, platelets are 275,000. BMP showed a sodium of 131, potassium 3.4, chloride is 98, bicarbonate is 21, BUN is 71, creatinine is 5.04, calcium is 9.5. CURRENT INPATIENT MEDICATIONS: Patient's medications were all reviewed by myself. No significant change in the medications today. ASSESSMENT AND PLAN: 1. Endstage renal disease. Patient is being dialyzed today. He is tolerating the hemodialysis procedure. Ultrafiltration goal is 3 liters. 2. Anemia and endstage renal disease. Patient is getting Aranesp with dialysis. Hemoglobin level is stable and slowly improving. 3. Hypervolemic hyponatremia. Sodium level should get better with improvement in the volume status. 4. Hypokalemia. Patient is being dialyzed with a 4k dialysate. Potassium level should improve with that. 5. Yeast urinary tract infection. Patient is on IV Micafungin for a total of 7 days. MTDD
--- NOTE | 2021-04-11 13:32 | RADENCPD ---
Date/Time of Encounter Date of Encounter: Apr 11, 2021 Time of Encounter: 13:25 Encounter Tre was unable to tolerate RT today due to orthopnea. He appeared more edematous in the neck today that yesterday as his mask did not fit as well today.. He was alert and by writing with pen and paper when asked if he wanted to continue treatment today he replied "no". I will visit with Tre tomorrow morning and try to get Cheryl on the phone to ascertain their goals of care and clarify if they want to continue to treat the recurrent head and neck cancer, or pause and hope for improvement in his performance status, or pursue an alternative mode of care such as hospice, which without measures like dialysis and cancer care, he would certainly qualify for. ABDI ARENAS MD Apr 11, 2021 13:32
[2021-04-11 13:53] VITALS: BP 135/62
[2021-04-11] MEDS: MICAFUNGIN SODIUM 100 MG in D5W MINI-BAG PLUS 100 ML IV SCH (14:00)
[2021-04-11] MEDS ORDERED: [UNRECOGNIZED DRUG - OTHER] IM ONE (15:00)
[2021-04-11 18:00] VITALS: BP 136/63
[2021-04-11 19:19] VITALS: O2SAT 100
[2021-04-11 22:00] VITALS: BP 138/65
[2021-04-12] MEDS: HumaLOG INSULIN (NovoLOG) PER UNIT SC SCH ×4 (00:38→18:25)
[2021-04-12] MEDS: IPRATROPIUM 0.5MG/ALBUTEROL 2.5MG INH SOL UD 3ML (DUONEB) NEB SCH ×6 (03:45→23:05)
[2021-04-12 06:00] VITALS: BP 154/92
[2021-04-12 06:12] LABS: HEMATOCRIT 26.8 % (42.0-52.0); HEMOGLOBIN 8.9 g/dl (13.5-17.5); MEAN CORPUSCULAR HEMOGLOBIN 33.5 pg (27.0-33.0); MEAN CORPUSCULAR HGB CONC 33.2 g/dl (32.0-36.5); MEAN CORPUSCULAR VOLUME 100.8 fl (80.0-96.0); PLATELET COUNT, AUTOMATED 286 10^3/uL (150-450); RED BLOOD COUNT 2.66 10^6/uL (4.30-6.10); WHITE BLOOD COUNT 14.9 10^3/uL (4.0-10.0)
[2021-04-12 06:41] LABS: CALCIUM LEVEL 8.7 MG/DL (8.8-10.2); CREATININE FOR GFR 3.63 MG/DL (0.70-1.30); GLOMERULAR FILTRATION RATE 17.7 (>42); POTASSIUM SERUM 4.1 MEQ/L (3.5-5.1)
[2021-04-12] MEDS: SODIUM CHLORIDE 0.9% INJ 10 ML SYR IV SCH ×3 (06:45→22:09)
[2021-04-12] MEDS: ACETYLCYSTEINE 20% 4 ML VIAL (200MG/ML) INH SCH ×2 (07:17→19:12)
[2021-04-12] MEDS: FLUTICASONE PROP 0.05% NASAL SPRAY 16 GM (FLONASE) NARES SCH (10:15)
--- NOTE | 2021-04-12 10:27 | REP ---
INDICATION: low grade temp. COMPARISON: 04/07/2021 TECHNIQUE: AP view FINDINGS: Since the previous study a dialysis catheter has been introduced on the right side. The tip is in the superior vena cava. The lungs are fully expanded. Parenchymal density in the right upper lobe and right lower lobe are unchanged when compared with the previous study. Left lung remains clear. The heart is slightly enlarged. There is probable small pleural effusion on the right side. Tracheostomy tube in place. IMPRESSION: Interval placement of dialysis catheter with tip in the superior vena cava in satisfactory position. No pneumothorax. No other interval changes. <Electronically signed by Boston Bradford > 04/12/21 1024
--- NOTE | 2021-04-12 11:11 | RADENCPD ---
Date/Time of Encounter Date of Encounter: Apr 12, 2021 Time of Encounter: 11:08 Encounter Met with Tre at bedside this AM, he is lucid, was able to say with pen and paper that he would like to hold off on radiation for the time being. Yesterday he was too orthopneic to tolerate treatment. I recommend we re-evaluate on Thursday. I also called Cheryl and gave an update. If he is well-enough and desires to continue we will re-simulate him due to poor tolerance of the current treatment position and current mask. I would discount the single fraction he received this week and give him the full 35 fraction course. ABDI ARENAS MD Apr 12, 2021 11:11
[2021-04-12] MEDS ORDERED: [UNRECOGNIZED DRUG - OTHER] IM ONE (11:30)
[2021-04-12] MEDS: ATORVASTATIN 20 MG TAB GT SCH (11:38)
[2021-04-12] MEDS: FOLIC ACID 1 MG TAB GT SCH (11:38)
[2021-04-12] MEDS: FAMOTIDINE 20 MG TAB GT SCH ×2 (11:38→22:07)
[2021-04-12] MEDS: allopurinoL 100 MG TAB GT SCH (11:38)
[2021-04-12] MEDS: HEPARIN SOD (PORCINE) 5000UNITS/ML 1ML VIAL/SYRINGE SQ SCH ×2 (11:39→22:08)
[2021-04-12] MEDS: LEVEMIR (INSULIN DETEMIR) 1 UNITS/0.01ML SC SCH ×2 (11:39→22:06)
[2021-04-12] MEDS: SOTALOL HCL 80 MG TAB GT SCH ×2 (11:42→22:06)
[2021-04-12 14:00] VITALS: BP 140/58
[2021-04-12] MEDS: MICAFUNGIN SODIUM 100 MG in D5W MINI-BAG PLUS 100 ML IV SCH (15:38)
--- NOTE | 2021-04-12 16:59 | IPNPDOC ---
Text Note Date of Service The patient was seen on 04/12/21. NOTE I had a phone conversation with Mrs. Carcamo today about the goal of our tr eatment plan for Mr. Carcamo as he has not been able to tolerate and also declined at this time, radiation therapy and has persistent debility also now with rising leukocytosis and low grade temps. I told her that I was resending an infectious workup with BCx and CXR with concern for brewing infection. This morning I spoke with nephrology that is managing his ESRD with HD and read Dr. Núñez's note from his encounter on 04/11. I mentioned that Mr. Carcamo at this time is unlikely to get well enough to return home and will be on the long read to rehab, given he will possibly be requiring another antibiotic course given his poor pulmonary clearance with secretions and requirement for frequent suctioning putting him at risk for infection, critical illness myopathy with physical deconditioning, new HD dependence and inability to tolerate radiation at this time with expressed refusal at this time. I offered to involve hospice on consultation but she expressed that she got a call from Dr. Núñez who reportedly told her that he would like to wait a little while for Mr. Carcamo to get better on dialysis and will consider radiation in the future and so would like to not engage hospice right now. I spoke with Dr. Núñez who at this time is taking it day by day but also shares the sentiment that it is reasonable to consider hospice at this time as he is unable to tolerate being supine for even a few minutes and has swelling as well. Mrs. Carcamo told me that she will be here on Sunday 04/15 at 2PM and I will coodinate us having a [facility] discussion with Dr. Núñez and nephrology as well. VS,Fishbone, I+O VS, Fishbone, I+O Laboratory Tests 04/12/21 05:59 Vital Signs Date Time Temp Pulse Resp B/P (MAP) Pulse Ox O2 Delivery O2 Flow Rate FiO2 04/12/21 14:00 98.0 67 22 140/58 (85) 99 Trach Collar 5.0 28 I&O- Last 24 Hours up to 6 AM 04/12/21 06:00 Intake Total 1650 ml Output Total 3000 ml Balance -1350 ml FAREED CARTER MD Apr 12, 2021 16:59
--- NOTE | 2021-04-12 23:46 | IPN ---
NEPHROLOGY PROGRESS NOTE DATE: 04/12/2021 SUBJECTIVE: Patient was seen and examined at the bedside today morning. He was dialyzed yesterday; 2.5 liters of fluid was removed. I was told by the medical team and by the nursing staff that patient is confused. He is having more and more respiratory distress. He has a lot of cough through his tracheostomy tube and he could not get radiation therapy, and I was told that he has refused the radiation therapy as well. Clinically, patient is not making much progress. OBJECTIVE: VITAL SIGNS: Temperature 98 degrees Fahrenheit, T-max 100 degrees Fahrenheit last night, blood pressure 140/58, pulse 67, respiratory rate 22, saturating 99% on trach collar at 5 liters. INTAKE/OUTPUT: Ultrafiltration with hemodialysis yesterday was 2.5 liters. Weight in the bed scale is 125.1 kg. PHYSICAL EXAMINATION: GENERAL: Patient is awake, follows few commands, lying in bed, intermittently coughing and wheezing. HEAD/NECK: Pupils equally round and reactive to light. Neck is supple. He has a tracheostomy with a trach collar. CVS: S1, S2, regular rate. 2+ edema of the bilateral lower extremities. RESPIRATORY: He is having coughing and wheezing, and he has a trach collar. Patient has a known tumor in the lungs. ABDOMEN: Obese, positive bowel sounds, nontender. No organomegaly. GENITOURINARY: He has an indwelling Haji catheter. MUSCULOSKELETAL: Chronic venous stasis changes. Bilateral lower extremity edema is slightly better today as compared with yesterday. DIRECTOR OF REHABILITATIVE SERVICES: Patient follows commands, otherwise he is confused and he is unable to communicate because of tracheostomy. LABORATORY REVIEW: CBC showed WBC 14.9, hemoglobin 8.9, platelets 286,000. BMP shows sodium 134, potassium 4.1, chloride 102, bicarb 23, BUN 37, creatinine 3.6. Calcium 8.7. IMAGING: A chest x-ray was done today, which showed placement of dialysis catheter with tip in superior vena cava. No pneumothorax. No other interval changes. A small pleural effusion on the right side. CURRENT INPATIENT MEDICATIONS: Patient's medications were all reviewed by myself. No significant change in the medications today as compared with yesterday. ASSESSMENT AND PLAN: 1. Acute renal failure: Patient is dialysis dependent. He was dialyzed yesterday. Next hemodialysis will be done tomorrow morning. 2. Anemia and end-stage renal disease: Continue Aranesp with dialysis. Hemoglobin level is stable and slightly improving. 3. Hypervolemia and lower extremity edema: Patient is getting fluid removed with dialysis. Edema is getting better. 4. Yeast infection of the urine: Patient is on I.V. Micafungin; last dose will be April 15. 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 I believe that palliative care and Hospice would be best for the care of this patient at this time and I discussed with the patient as well. Medical team is going to discuss this option with the family members. If patient is made comfort measures only, then hemodialysis will be stopped. MTDD
[2021-04-13] MEDS: FLUTICASONE PROP 0.05% NASAL SPRAY 16 GM (FLONASE) NARES SCH ×3 (00:35→22:05)
[2021-04-13] MEDS: HumaLOG INSULIN (NovoLOG) PER UNIT SC SCH ×4 (00:35→17:57)
[2021-04-13] MEDS: IPRATROPIUM 0.5MG/ALBUTEROL 2.5MG INH SOL UD 3ML (DUONEB) NEB SCH ×6 (03:40→23:59)
[2021-04-13] MEDS: SODIUM CHLORIDE 0.9% INJ 10 ML SYR IV SCH ×3 (05:55→22:05)
[2021-04-13] MEDS: SOTALOL HCL 80 MG TAB GT SCH ×2 (05:55→22:04)
[2021-04-13] MEDS: ATORVASTATIN 20 MG TAB GT SCH (05:56)
[2021-04-13] MEDS: FAMOTIDINE 20 MG TAB GT SCH ×2 (05:56→22:04)
[2021-04-13] MEDS: FOLIC ACID 1 MG TAB GT SCH (05:56)
[2021-04-13] MEDS: allopurinoL 100 MG TAB GT SCH (05:57)
[2021-04-13] MEDS: HEPARIN SOD (PORCINE) 5000UNITS/ML 1ML VIAL/SYRINGE SQ SCH ×2 (05:57→22:05)
[2021-04-13 06:00] VITALS: BP 130/76
[2021-04-13 06:33] LABS: HEMATOCRIT 27.3 % (42.0-52.0); MEAN CORPUSCULAR HEMOGLOBIN 33.7 pg (27.0-33.0); MEAN CORPUSCULAR VOLUME 102.2 fl (80.0-96.0); PLATELET COUNT, AUTOMATED 291 10^3/uL (150-450); RED BLOOD COUNT 2.67 10^6/uL (4.30-6.10)
[2021-04-13 06:51] LABS: CALCIUM LEVEL 8.7 MG/DL (8.8-10.2); CREATININE FOR GFR 4.42 MG/DL (0.70-1.30); GLOMERULAR FILTRATION RATE 14.1 (>42); POTASSIUM SERUM 3.8 MEQ/L (3.5-5.1)
[2021-04-13] MEDS: ACETYLCYSTEINE 20% 4 ML VIAL (200MG/ML) INH SCH ×2 (07:19→19:22)
[2021-04-13] MEDS: LEVEMIR (INSULIN DETEMIR) 1 UNITS/0.01ML SC SCH ×2 (07:56→22:04)
--- NOTE | 2021-04-13 13:18 | IPN ---
PROGRESS NOTE DATE: 04/13/2021 SUBJECTIVE: The patient was seen and examined at the bedside today morning. He is afebrile. He is hemodynamically stable, getting hemodialysis done at this time. He is tolerating the hemodialysis procedure well. OBJECTIVE: VITAL SIGNS: Temperature is 97.2 degrees Fahrenheit, blood pressure is 130/76, pulse is 63, respiratory rate of 21, saturating 97% on trach collar at 5 liters. INTAKE AND OUTPUT: Urine output recorded yesterday is 100 ml. Weight on the bed scale is 125.6 kg. GENERAL: Patient is laying in bed getting dialysis done. HEAD AND NECK: Pupils equally round and reactive to light. Mucous membranes are moist. Neck is supple. He has a trach collar. CARDIOVASCULAR: S1 and S2, regular rate, there is 2+ edema of the bilateral lower extremities. RESPIRATORY: Mildly decreased breath sounds at the bases but there is mild wheezing and he is trach collar dependent. ABDOMEN: Obese, positive bowel sounds. PEG tube in the epigastrium is noted. MUSCULOSKELETAL: Venous stasis changes of lower extremities noted. WHEEL FILLER: Patient is drowsy but otherwise he follows some commands and moves extremities. LABORATORY DATA: CBC showed a WBC at 13, hemoglobin is 9, platelets are 291,000. BMP showed sodium of 128, potassium 3.8, chloride 97, bicarbonate 21, BUN 53, creatinine is 4.4. Calcium is 8.7. CURRENT INPATIENT MEDICATIONS: Patient's medications were all reviewed by myself. There is no significant change in the medications today as compared with yesterday. ASSESSMENT AND PLAN: 1. Endstage renal disease. Patient is being dialyzed at this time. He is tolerating the hemodialysis procedure well. 2. Anemia, continue Aranesp with dialysis. Transfuse p.r.n. for a hemoglobin below 8. 3. Hypervolemia and lower extremity edema. He is getting fluid removed during dialysis, he does not respond to IV diuretics. 4. Yeast infection of the urine. He continues to be on IV Micafungin. He has two more days left for antifungal. 5. Disposition. Patient's family members are going to discuss the final goals of care with the medical team.
[2021-04-13] MEDS: MICAFUNGIN SODIUM 100 MG in D5W MINI-BAG PLUS 100 ML IV SCH (13:53)
[2021-04-14] MEDS: HumaLOG INSULIN (NovoLOG) PER UNIT SC SCH ×4 (00:22→18:24)
[2021-04-14] MEDS: IPRATROPIUM 0.5MG/ALBUTEROL 2.5MG INH SOL UD 3ML (DUONEB) NEB SCH ×6 (03:25→23:32)
[2021-04-14 06:00] VITALS: BP 150/75
[2021-04-14] MEDS: SODIUM CHLORIDE 0.9% INJ 10 ML SYR IV SCH ×3 (06:13→22:25)
[2021-04-14 06:53] LABS: BASO # 0.1 10^3/uL (0.0-0.2); BASO % 0.7 % (0.0-1.0); EOS # 1.1 10^3/uL (0.0-0.5); EOS % 7.9 % (0.0-3.0); HEMATOCRIT 27.4 % (42.0-52.0); LYMPH # 1.1 10^3/uL (1.5-5.0); LYMPH % 7.9 % (24.0-44.0); MEAN CORPUSCULAR HEMOGLOBIN 33.6 pg (27.0-33.0); MEAN CORPUSCULAR HGB CONC 32.8 g/dl (32.0-36.5); MEAN CORPUSCULAR VOLUME 102.2 fl (80.0-96.0); MONO # 1.9 10^3/uL (0.0-0.8); MONO % 13.6 % (2.0-8.0); NEUTROPHILS # 9.4 10^3/uL (1.5-8.5); NEUTROPHILS % 66.8 % (36.0-66.0); PLATELET COUNT, AUTOMATED 288 10^3/uL (150-450); RED BLOOD COUNT 2.68 10^6/uL (4.30-6.10)
[2021-04-14 07:16] LABS: CALCIUM LEVEL 9.3 MG/DL (8.8-10.2); CREATININE FOR GFR 3.11 MG/DL (0.70-1.30); GLOMERULAR FILTRATION RATE 21.2 (>42); POTASSIUM SERUM 3.6 MEQ/L (3.5-5.1)
[2021-04-14] MEDS: ACETYLCYSTEINE 20% 4 ML VIAL (200MG/ML) INH SCH ×2 (07:21→20:40)
[2021-04-14] MEDS: LEVEMIR (INSULIN DETEMIR) 1 UNITS/0.01ML SC SCH ×2 (10:36→22:15)
[2021-04-14] MEDS: ATORVASTATIN 20 MG TAB GT SCH (10:36)
[2021-04-14] MEDS: FAMOTIDINE 20 MG TAB GT SCH ×2 (10:36→22:25)
[2021-04-14] MEDS: FOLIC ACID 1 MG TAB GT SCH (10:36)
[2021-04-14] MEDS: allopurinoL 100 MG TAB GT SCH (10:37)
[2021-04-14] MEDS: SOTALOL HCL 80 MG TAB GT SCH ×2 (10:37→22:16)
[2021-04-14] MEDS: HEPARIN SOD (PORCINE) 5000UNITS/ML 1ML VIAL/SYRINGE SQ SCH ×2 (10:38→22:25)
[2021-04-14] MEDS: FLUTICASONE PROP 0.05% NASAL SPRAY 16 GM (FLONASE) NARES SCH ×2 (10:38→22:25)
[2021-04-14] MEDS: MICAFUNGIN SODIUM 100 MG in D5W MINI-BAG PLUS 100 ML IV SCH (12:25)
[2021-04-15] MEDS: HumaLOG INSULIN (NovoLOG) PER UNIT SC SCH ×5 (00:22→23:58)
[2021-04-15] MEDS: IPRATROPIUM 0.5MG/ALBUTEROL 2.5MG INH SOL UD 3ML (DUONEB) NEB SCH ×5 (04:46→19:16)
[2021-04-15 06:00] VITALS: BP 135/51
[2021-04-15] MEDS: SODIUM CHLORIDE 0.9% INJ 10 ML SYR IV SCH ×3 (06:19→22:07)
[2021-04-15 06:54] LABS: BASO # 0.1 10^3/uL (0.0-0.2); EOS # 1.3 10^3/uL (0.0-0.5); EOS % 9.4 % (0.0-3.0); LYMPH # 1.3 10^3/uL (1.5-5.0); LYMPH % 9.8 % (24.0-44.0); MEAN CORPUSCULAR HGB CONC 33.3 g/dl (32.0-36.5); MEAN CORPUSCULAR VOLUME 101.9 fl (80.0-96.0); MONO # 1.8 10^3/uL (0.0-0.8); MONO % 13.4 % (2.0-8.0); NEUTROPHILS # 8.3 10^3/uL (1.5-8.5); PLATELET COUNT, AUTOMATED 302 10^3/uL (150-450); RED BLOOD COUNT 2.65 10^6/uL (4.30-6.10)
[2021-04-15 07:19] LABS: CALCIUM LEVEL 9.3 MG/DL (8.8-10.2); CREATININE FOR GFR 3.99 MG/DL (0.70-1.30); GLOMERULAR FILTRATION RATE 15.9 (>42); POTASSIUM SERUM 3.7 MEQ/L (3.5-5.1)
[2021-04-15] MEDS: ACETYLCYSTEINE 20% 4 ML VIAL (200MG/ML) INH SCH ×2 (07:57→19:16)
[2021-04-15 08:14] LABS: WHITE BLOOD COUNT 13.3 10^3/uL (4.0-10.0)
[2021-04-15] MEDS: LEVEMIR (INSULIN DETEMIR) 1 UNITS/0.01ML SC SCH ×2 (10:12→22:07)
[2021-04-15] MEDS: ATORVASTATIN 20 MG TAB GT SCH (10:12)
[2021-04-15] MEDS: FOLIC ACID 1 MG TAB GT SCH (10:12)
[2021-04-15] MEDS: allopurinoL 100 MG TAB GT SCH (10:13)
[2021-04-15] MEDS: FAMOTIDINE 20 MG TAB GT SCH ×2 (10:13→22:07)
[2021-04-15] MEDS: SOTALOL HCL 80 MG TAB GT SCH ×2 (10:13→22:07)
[2021-04-15] MEDS: FLUTICASONE PROP 0.05% NASAL SPRAY 16 GM (FLONASE) NARES SCH ×2 (10:14→22:08)
[2021-04-15] MEDS: HEPARIN SOD (PORCINE) 5000UNITS/ML 1ML VIAL/SYRINGE SQ SCH ×2 (10:14→22:08)
--- NOTE | 2021-04-15 17:13 | RADENCPD ---
Date/Time of Encounter Date of Encounter: Apr 15, 2021 Time of Encounter: 17:07 Encounter Met with Tre Cheryl and Dr. Hu regarding goals of care and plans for Tre. He has not been able to tolerate RT due to orthopnea and edema, moreover, he stated last week that he did not want to continue RT for the time being. I explained that I do not favor resuming RT at this time and that it would be prudent to await some meaningful functional recovery (eg mobilizing out of bed, ambulating etc) before replanning him and resuming RT. This is because he has more acute medical issues namely deconditioning, poor respiratory reserve, ESRD, and infection risk which are more significant than his head and neck malignancy at this time. I remain available to contribute to future goals of care discussions, answer questions, or if he were to make significant progress in the coming weeks consider resumption of RT. In the meantime I will discontinue the present RT course and follow peripherally while he is hospitalized. ABDI ARENAS MD Apr 15, 2021 17:13
[2021-04-15 22:07] VITALS: BP 146/72
[2021-04-16] VITALS (7 sets, daily range): BP systolic 87–153; BP diastolic 52–72
[2021-04-16] MEDS: IPRATROPIUM 0.5MG/ALBUTEROL 2.5MG INH SOL UD 3ML (DUONEB) NEB SCH ×6 (00:37→15:55)
[2021-04-16] MEDS: SODIUM CHLORIDE 0.9% INJ 10 ML SYR IV SCH ×3 (05:02→22:05)
[2021-04-16 05:13] LABS: BASO # 0.1 10^3/uL (0.0-0.2); BASO % 0.7 % (0.0-1.0); EOS # 1.2 10^3/uL (0.0-0.5); EOS % 8.9 % (0.0-3.0); HEMATOCRIT 25.9 % (42.0-52.0); HEMOGLOBIN 8.7 g/dl (13.5-17.5); LYMPH # 1.2 10^3/uL (1.5-5.0); LYMPH % 8.9 % (24.0-44.0); MEAN CORPUSCULAR HGB CONC 33.6 g/dl (32.0-36.5); MEAN CORPUSCULAR VOLUME 101.2 fl (80.0-96.0); MONO # 1.7 10^3/uL (0.0-0.8); NEUTROPHILS # 8.5 10^3/uL (1.5-8.5); NEUTROPHILS % 64.6 % (36.0-66.0); PLATELET COUNT, AUTOMATED 294 10^3/uL (150-450); RED BLOOD COUNT 2.56 10^6/uL (4.30-6.10)
[2021-04-16 05:27] LABS: WHITE BLOOD COUNT 13.2 10^3/uL (4.0-10.0)
[2021-04-16 05:41] LABS: CALCIUM LEVEL 8.8 MG/DL (8.8-10.2); CREATININE FOR GFR 4.51 MG/DL (0.70-1.30); GLOMERULAR FILTRATION RATE 13.8 (>42); POTASSIUM SERUM 3.8 MEQ/L (3.5-5.1)
[2021-04-16] MEDS: SOTALOL HCL 80 MG TAB GT SCH (05:44)
[2021-04-16] MEDS: allopurinoL 100 MG TAB GT SCH (05:46)
[2021-04-16] MEDS: FLUTICASONE PROP 0.05% NASAL SPRAY 16 GM (FLONASE) NARES SCH (05:46)
[2021-04-16] MEDS: ATORVASTATIN 20 MG TAB GT SCH (05:46)
[2021-04-16] MEDS: FAMOTIDINE 20 MG TAB GT SCH (05:46)
[2021-04-16] MEDS: FOLIC ACID 1 MG TAB GT SCH (05:48)
[2021-04-16] MEDS: HumaLOG INSULIN (NovoLOG) PER UNIT SC SCH ×2 (06:01→14:25)
[2021-04-16] MEDS: ACETYLCYSTEINE 20% 4 ML VIAL (200MG/ML) INH SCH ×2 (06:08→20:00)
[2021-04-16] MEDS: HEPARIN SOD (PORCINE) 5000UNITS/ML 1ML VIAL/SYRINGE SQ SCH (06:13)
[2021-04-16] MEDS ORDERED: SODIUM CHLORIDE 0.9% 1000ML IV PRN (07:05)
[2021-04-16] MEDS: DARBEPOETIN 200MCG/0.4ML *DIALYSIS* SYRINGE (J0882 PER 1MCG) IV SCH (09:51)
[2021-04-16] MEDS ORDERED: [UNRECOGNIZED DRUG - OTHER] IM ONE (12:00)
--- NOTE | 2021-04-16 12:00 | IPN ---
NEPHROLOGY PROGRESS NOTE DATE: 04/16/2021 SUBJECTIVE: Mr. Carcamo is seen and examined this morning in the hemodialysis unit receiving his treatment. He is able to mouth "yes" or "no" to simple questions. He mouths "no" when I ask him if he is in any pain or if he is experiencing any shortness of breath. His dialysis treatment is uneventful. He remains afebrile and hemodynamically stable. OBJECTIVE: VITAL SIGNS: Temperature 97.0, pulse 63, respiratory rate 20, blood pressure 153/57, saturating 96% on 28% FiO2 via trach collar. INTAKE AND OUTPUT: Intake yesterday was 2.7 liters. Goal dialysis removal today is 3 liters. Weight in the bed scale today is 129.5 kg. PHYSICAL EXAMINATION: GENERAL APPEARANCE: The patient is seen lying in bed in the hemodialysis unit getting dialysis done, elderly and debilitated and chronically ill appearing male. He makes eye contact. HEENT: Pupils are reactive to light. Tongue is dry. NECK: Supple. There is a trach collar. CHEST: There is a tunneled hemodialysis catheter in the right chest wall presently in use. HEART: S1, S2, regular rate. There is chronic 1-2+ edema of the lower extremities and the dependent area. LUNGS: Anterior auscultation only. There is a mild wheeze. There is a tracheostomy. There are some bilateral breath sounds. ABDOMEN: Obese and soft. There is a PEG tube. EXTREMITIES: There are venous stasis changes of the legs and about 1+ edema. NEUROLOGICAL: He follows simple commands and mouths "yes" or "no". GENITOURINARY: Haji catheter. LABORATORY STUDIES: White count 13.2, hemoglobin 8.7, platelet count 294, sodium 124, potassium 3.8, bicarbonate 21, BUN 55, creatinine 4.5, glucose 197. INPATIENT MEDICATIONS: The patient's medications were reviewed by myself. I note that his Micafungin is stopped. He continues on Tylenol p.r.n., Mucomyst twice daily, DuoNeb q. 4 hourly, Allopurinol 200 mg daily. I am decreasing the dose of Allopurinol to 100 mg daily, Lipitor 20 mg daily, Aranesp 200 mcg with dialysis, Pepcid twice daily, folic acid one mg daily, Heparin 5,000 units subcutaneously q. 12 hourly, insulin, Sotalol 80 mg twice daily. PROBLEMS: 1. End-stage renal disease on hemodialysis on a Thursday, Thursday, Thursday schedule. The patient is dialyzed today. We have been removing about 3 liters with each treatment. His dialysis has been uneventful. 2. Hypervolemic hyponatremia serum sodium is considerably downward trending. He is getting 1.5 liters of water with the tube feeds, and I am decreasing that. He will now only receive one liter of free water with tube feeds. His sodium level with improve dialysis, fluid removal and with decreased free water in the tube feeds. 3. Anemia related to chronic renal failure - hemoglobin is 8.7 on the latest labs. He continues on Aranesp with dialysis. I would transfuse for hemoglobin less than 8. His iron stores were checked earlier during this admission and were satisfactory. 4. Hypervolemia and lower extremity edema - The patient is in mild fluid overload. He is receiving tube feeds which comes out to a total intake of 2.7 liters a day. I have decreased the amount of water he is receiving with the tube feeds, and we are removing 3 liters with dialysis today. 5. Yeast infection in the urine he has completed a course of Micafungin.
[2021-04-16] MEDS ORDERED: NOREPINEPHRINE 4 MG/4 ML AMP As Ordered ONE (12:34)
[2021-04-16] MEDS ORDERED: CEFEPIME HCL 2 GM in D5W MINI-BAG PLUS 50 ML IV SCH (12:50)
[2021-04-16] MEDS ORDERED: CEFEPIME HCL 1 GM in D5W MINI-BAG PLUS 50 ML IV ONE (13:00)
[2021-04-16] MEDS: LEVEMIR (INSULIN DETEMIR) 1 UNITS/0.01ML SC SCH (13:08)
--- NOTE | 2021-04-16 13:08 | IPNPDOC ---
Text Note Date of Service The patient was seen on 04/16/21. NOTE At 12.15 an CUSTOMER TRAINER was called for Mr. Carcamo and shortly after a maxcart was called. On arriving to bedside team had started chest compression. Briefly prior to this event he had HD this morning and on return nursing reported him having called for suctioning and on return to suction him he was cyanotic began suctioning with scant amount was plugged and thick and before long he was unresponsive and had lost his pulse. He had CPR from 1220 to 1232, with 4 round of epi and 1 amp of bicarb after which we had return of ROSC with sustained pulse with labile variable SVTs, never wide complex with eventual return to NSR. 12 lead AKG showed NSR with RBBB, precordial TWI that were previous noted and TWI in aVF but otherwise no ST segment depression or elevations. He was started on low dose epi and complete labs drawn and is now being transferred to the ICU. Pulmonology is aware of patient and was present at bedside during code and on wet bedside echo reported akinetic LV. Of note, I spoke with during code and updated her about his change in status. This is in light of our conversation with Francisco yesterday afternoon where she had expressed desire to remain fullcod e for now with full knowledge that he was high risk for aspiration, mucus plugging, infection, and worsening debility, and she expressed that she wanted all interventions for him and to continue CPR and ALCS algorithm. I will now place him on empiric linezolid and cefepime based on the recent treatment for trach MRSA and enterobacter i/s/o mucus plug with aspiration event precipitating respiratory and eventual cardiac arrest. VS,Fishbone, I+O VS, Fishbone, I+O Laboratory Tests 04/16/21 04:57 Vital Signs Date Time Temp Pulse Resp B/P (MAP) Pulse Ox O2 Delivery O2 Flow Rate FiO2 04/16/21 06:09 68 18 04/16/21 06:00 97.0 153/57 (89) 96 Trach Collar 5.0 28 I&O- Last 24 Hours up to 6 AM 04/16/21 06:00 Intake Total 3300 ml Output Total 160 ml Balance 3140 ml FAREED CARTER MD Apr 16, 2021 13:07
[2021-04-16 13:14] LABS: HEMATOCRIT 30.5 % (42.0-52.0); HEMOGLOBIN 10.3 g/dl (13.5-17.5); MEAN CORPUSCULAR HEMOGLOBIN 34.2 pg (27.0-33.0); MEAN CORPUSCULAR HGB CONC 33.8 g/dl (32.0-36.5); MEAN CORPUSCULAR VOLUME 101.3 fl (80.0-96.0); PLATELET COUNT, AUTOMATED 304 10^3/uL (150-450); RED BLOOD COUNT 3.01 10^6/uL (4.30-6.10); WHITE BLOOD COUNT 17.7 10^3/uL (4.0-10.0)
[2021-04-16 13:42] LABS: ALBUMIN 1.9 GM/DL (3.2-5.2); ALT/SGPT 87 U/L (12-78); BILIRUBIN,TOTAL 0.2 MG/DL (0.2-1.0); BLOOD UREA NITROGEN 23 MG/DL (7-18); CALCIUM LEVEL 8.8 MG/DL (8.8-10.2); CARBON DIOXIDE LEVEL 24 MEQ/L (21-32); CHLORIDE LEVEL 104 MEQ/L (98-107); CK-MB VALUE MASS 1.5 NG/ML (<3.6); CPK CREATINE PHOSPHOKINASE 43 U/L (39-308); CREATININE FOR GFR 2.51 MG/DL (0.70-1.30); GLOMERULAR FILTRATION RATE 27.1 (>42); GLUCOSE, FASTING 261 MG/DL (70-100); MAGNESIUM LEVEL 2.1 MG/DL (1.8-2.4); MB/CK RELATIVE INDEX 3.49 (< OR =4); POTASSIUM SERUM 3.5 MEQ/L (3.5-5.1); SODIUM LEVEL 137 MEQ/L (136-145); TOTAL PROTEIN 5.9 GM/DL (6.4-8.2); TROPONIN I < 0.02 NG/ML (< 0.10)
[2021-04-16] MEDS ORDERED: LINEZOLID 600 MG in IV 1 EA IV SCH (15:00)
--- NOTE | 2021-04-16 15:28 | REP ---
INDICATION: post arrest. COMPARISON: 04/12/2021. TECHNIQUE: Single portable AP view of the chest was performed. FINDINGS: There are mild bibasilar atelectatic changes. The heart and mediastinum are unchanged. Right central venous catheter is seen with tip in the superior vena cava. Left central venous catheter is seen with the tip in the superior vena cava. Tracheostomy tube appears to be in place. IMPRESSION: Mild bibasilar atelectatic change. <Electronically signed by Juan Manuel Hidalgo > 04/16/21 1634
--- NOTE | 2021-04-16 16:17 | IPNPDOC ---
Text Note Date of Service The patient was seen on 04/16/21. NOTE Subjective: -Cirilo called for cardiac arrest at ~12.15 after noted difficulty clearing secretions post dialysis with mucus plugging. Cardiac arrest likely 2/2 arrythmia i/s/o aspiration with hypoxia. Obtained ROSC after 12minutes after 4 rounds of epi and 1 amp of bicarb. 12 lead AKG showed NSR with RBBB, precordial TWI that were previous noted and TWI in aVF but otherwise no ST segment depression or elevations. He was started on low dose epi, empiric linezolid and cefepime and transferred to the ICU where he now on the vent. -Patient is now awake, alert and communicating with family at bedside and on attempt to discuss GOC and sister deferred to the patient who did not express desire to stop aggressive treatments. I stepped out to allow them some time to discuss. Objective: Vitals: see below General: Critically ill appearing, awake, alert HEENT: NC/AT, EOMI, dry mucous membranes CARDIO: RRR, no MRG PULM: transmitted upper airway sounds, otherwise is moving air well, tachypneic ABD: Normoactive bowel sounds, soft, nondistended, nontender SKIN: PEG site w/out signs of infxn; trach site clean w/ no significant discharge and no surrounding erythema; permacath site in RU chest with dressing in place, c/d/i, chronic venous stasis changes b/l LE PSYCH: Aox3 LABS: Reviewed IMAGING/Bx: Renal US 03/20: Normal urinary tract sonography. CXR 03/21: 1. COPD with some bibasilar patchy infiltrates atelectasis, above the diaphragm on the right and medially in the retrocardiac zone on the left. Bilateral effusions noted. 2. No gross cardiomegaly or dolly edema. Prominence of pulmonary arteries centrally suggest pulmonary artery hypertension, likely on the basis of COPD. 3. New tracheostomy tube since the previous CT in August. Right lung main bronchus, bronchoscopic biopsy: Mainly degenerated inflammatory debris/acute inflammatory cells and entrapped small cluster of highly atypical squamous cells is noted, suspicious for non- small cell carcinoma. Immunostains for TTF-1, P40 and CK7 were performed. The small atypical cluster is positive for P40(squamous cell stain), and negative for TTF-1 but CK7 is non- contributory as the small cluster disappears. CXR 03/24: New infiltrate suspected in the right base consistent with pneumonia. Increased markings in the right apex are also noted. Borderline heart size and vascular congestion.. CXR 03/24: Left subclavian catheter in place. No evidence of pneumothorax. Right upper lobe infiltrate. Question right lower lobe. CXR 03/26: Right base markings appear to be improved. Right upper lobe infiltrate persists. Tracheostomy tube in place. CXR 03/28/21: No new infiltrate. 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 #Acute hypoxemic resipratory failure: -ABG -Will check degree if any hypercarbia -supplemental O2, currently on vent -start empiric linezolid/cefepime in light of the recent infections CXR -f/u basic labs #Recent RLL PNA s/p 10days linezolid, cefepime, now getting restarted on the antibiotics after an aspiration events -Now hemodynamically stable, afebrile -Blood cx (03/30) negative -Bronchial washing cx + MRSA, +Enterobacter cloacae CRE -continue chest PT and intermittent suctioning -ID and Pulmonology were consulted, appreciate recs #PEG site infxn s/p 10days linezolid, cefepime Wound cx +MRSA, +Enterobacter cloacae CRE ID was consulted, appreciate recs. Tx completed #PEG tube leakage w/ c/f dislodgement after patient pulled it overnight -consulted Dr. Crooks, 04/10, placed it back into position at bedside #Trach site infxn s/p 10days linezolid, cefepime ID was consulted, appreciate recs. Tx completed. 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 De Leon 11/2020) - Based on documentation pathology positive for moderately differentiated SCC with positive margins - Patient had refused systemic chemotherapy - Pt w/ cuffed trach- no complications - Patient has not yet begun radiation therapy. RadOnc onboard #Non-small cell lung CA in RUL - MedOnc on consult #MARK on CKD V now ESRD. -PermaCath placed by vascular surgery on 04/07/2021 -Diet low nitrogen, high water content -Haji catheter in place w/ poor output -Monitor kidney fxn -On HD, nephrology onboard #Fungal infxn abd folds On Nystatin ointment PRN #HTN- well controlled -Dc'd amlodipine now on HD with post HD hypotension. Will continue on sotalol #Paroxysmal atrial fibrillation- rate remains controlled -On Sotalol -On ppx heparin, given recent hemoptysis #DLP On Atorvastatin #DM2 -On Levemir, Insulin SS -FSBG Q6H on tube feeds #GERD -On Famotidine #DVT prophylaxis -Heparin SC BID- monitor for hemoptysis -TEDs and sequentials VS,Fishbone, I+O VS, Fishbone, I+O Laboratory Tests 04/16/21 04:57 04/16/21 12:43 Vital Signs Date Time Temp Pulse Resp B/P (MAP) Pulse Ox O2 Delivery O2 Flow Rate FiO2 04/16/21 13:27 83 22 91 50 04/16/21 08:00 5.0 04/16/21 06:00 97.0 153/57 (89) Trach Collar I&O- Last 24 Hours up to 6 AM 04/16/21 06:00 Intake Total 3300 ml Output Total 160 ml Balance 3140 ml FAREED CARTER MD Apr 16, 2021 16:17
[2021-04-16] MEDS ORDERED: LORazepam 2 MG/ML VIAL IV PRN (18:10)
[2021-04-16] MEDS ORDERED: SCOPOLAMINE 1MG TRANSDERMAL PATCH TOP PRN (18:10)
[2021-04-16] MEDS ORDERED: ONDANSETRON 4MG/2ML VIAL IV PRN (18:10)
[2021-04-16] MEDS ORDERED: ACETAMINOPHEN 650 MG SUPP PR PRN (18:10)
--- NOTE | 2021-04-16 18:24 | IPNPDOC ---
Text Note Date of Service The patient was seen on 04/16/21. NOTE At 6PM Dr. Winslow ([facility]), myself, Mr. Carcamo's sister Catina and Brandee (on telephone, had just left for home) had a discussion with Tre about the goals of care at this time given critical illness and it was clear at that time that Tre was at the least encephalopathic and could not participate in that discussion and was unable to give his recent baseline nod, yes or no contribution to the questions we were asking. We discussed at length the degree of critical illness and the likely inability to recover to an extent that he would be expected to be discharged from the hospital to return home or be discharged to rehab as originally planned. 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 MOLST was completed by Dr. Winslow and has been updated. VS,Fishbone, I+O VS, Fishbone, I+O Laboratory Tests 04/16/21 04:57 04/16/21 12:43 Vital Signs Date Time Temp Pulse Resp B/P (MAP) Pulse Ox O2 Delivery O2 Flow Rate FiO2 04/16/21 16:00 50 04/16/21 15:55 74 04/16/21 13:27 22 91 04/16/21 08:00 5.0 04/16/21 06:00 97.0 153/57 (89) Trach Collar I&O- Last 24 Hours up to 6 AM 04/16/21 06:00 Intake Total 3300 ml Output Total 160 ml Balance 3140 ml FAERED CARTER MD Apr 16, 2021 18:24
--- NOTE | 2021-04-16 18:33 | TRANSCARE ---
Transition of Care: Transition of Care This is a 70-year-old gentleman with past medical history of chronic respiratory failure status post tracheostomy and PEG tube insertion, history of head and neck cancer who was initially admitted to the hospital for suspected HAP. Patient had prolonged hospitalization due to development of recurrent pneumonia. He had multiple bronchoscopy done during his hospitalization. He also developed renal failure during hospitalization and currently on hemodialysis. After coming back from hemodialysis today, patient was found to be cyanotic and there was no pulse palpated. Therefore CODE BLUE was called and CPR was initiated. He was given several rounds of sodium bicarbonate and epinephrine. Arrest rhythm was PEA. The entire resuscitation effort took 30 minutes before ROSC was achieved. He was bag mask through the tracheostomy during the entire resuscitation effort and subsequently put on ventilator after ROSC was achieved. Post arrest bedside echocardiogram showed diffusely hypokinetic left and right ventricle. Patient was moved down to intensive care unit for further care. During his short stay in the ICU, Dr. Hu had an extensive conversation regarding goals of care with his Florina and his Sister Catina. Prognosis is extremely poor given his new profound neurological status: Altered mental status/encephalopathy with suspected anoxic brain injury. Patient had a poor functional status to begin with at baseline. After a long conversation, his finally made him DNR, DNI and transition him to comfort care. CODE STATUS has been changed to DNR and DNI. Comfort care orders have been put in by Dr. Hu. Critical care will sign off. RAGHU ALVARADO MD Apr 16, 2021 18:33
[2021-04-16] MEDS ORDERED: SODIUM BICARBONATE 8.4% INJ 50 ML SYRINGE ONE (19:32)
[2021-04-16] MEDS ORDERED: EPINEPHrine 1MG/10ML SYRINGE 1.5IN ONE (19:32)
[2021-04-16] MEDS: MORPHINE 2 MG/ML 1ML VIAL (J2270) IV PRN (20:58)
[2021-04-17] VITALS: BP 132/69
[2021-04-17 04:00] VITALS: BP 97/62
[2021-04-17] MEDS: SODIUM CHLORIDE 0.9% INJ 10 ML SYR IV SCH ×3 (06:10→22:15)
[2021-04-17] MEDS: ACETYLCYSTEINE 20% 4 ML VIAL (200MG/ML) INH SCH (07:30)
[2021-04-17] MEDS ORDERED: allopurinoL 100 MG TAB GT SCH (09:00)
[2021-04-17] MEDS: MORPHINE 2 MG/ML 1ML VIAL (J2270) IV PRN ×2 (15:40→22:15)
[2021-04-17] MEDS ORDERED: CEFEPIME HCL 1 GM in D5W MINI-BAG PLUS 50 ML IV SCH (16:00)
--- NOTE | 2021-04-17 23:38 | ECGEPIP ---
[facility] Test Date: 2021-04-16 Pat Name: SOLO WU Department: Room: [place] [address] Gender: Male Percussion Tuner: EVAN : 1950 Requested By: FAREED Harding Order Number: [id number] Reading MD: Sim Flowers Measurements Intervals [place] Rate: 100 P: AL: 176 QRS: -84 QRSD: 124 T: 43 QT: 388 QTc: 500 Interpretive Statements Normal sinus rhythm Left axis deviation Right bundle-branch block with left anterior fascicular block Inferior infarct , age undetermined Increase heart rate compared with 03/29/21. Electronically Signed on 04-17-2021 23:37:49 EDT by Sim Flowers
[2021-04-18] MEDS: SODIUM CHLORIDE 0.9% INJ 10 ML SYR IV SCH ×4 (06:13→22:39)
[2021-04-18] MEDS: MORPHINE 2 MG/ML 1ML VIAL (J2270) IV PRN ×2 (14:23→18:32)
[2021-04-19] MEDS: SODIUM CHLORIDE 0.9% INJ 10 ML SYR IV SCH ×2 (05:15→10:52)
[2021-04-19] MEDS: MORPHINE 2 MG/ML 1ML VIAL (J2270) IV PRN (10:51)
[2021-04-19] MEDS ORDERED: [UNRECOGNIZED DRUG - OTHER] IM ONE (11:00)
--- NOTE | 2021-04-19 18:07 | DS.PDOC ---
Discharge Summary General Date of Admission Mar 20, 2021 at 14:20 Date of Discharge Attending Physician: FAREED CARTER MD Specialist/Consultants Involve: ALFONSO GUEVARA DO Specialist/Consultants Involve MARBIN Discharge Summary PROCEDURES PERFORMED DURING STAY: 03/24 - L subclavian triple lumen catheter by Dr. Chauhan 03/25 - Fiberoptic bronchoscopy by Dr. Khan 04/07 - R IJ permacath placement by Dr. Gomez ADMITTING DIAGNOSES: Tracheostomy infection PEG tube infection on-small cell lung carcinoma diagnosed approximately 1 year ago, treated with radiatio therapy. Supraglottic cancer diagnosed in 11/2020 s/p laryngectomy with placement of tracheostomy and G tubes RLL PNA DISCHARGE DIAGNOSES: Mucus plugging with acute on chronic hypoxemic respiratory arrest and eventual cardiac arrest Acute on chronic kidney disease to End stage renal disease transitioned to HD this admission Non-small cell lung carcinoma diagnosed approximately 1 year ago, treated with radiatio therapy. Supraglottic cancer diagnosed in 11/2020 s/p laryngectomy with placement of tracheostomy and G tubes RLL PNA Tracheostomy infection PEG tube infection Prior 100 pack year smoking history Type 2 diabetes mellitus on insulin. Gout. Hypertension Hyperlipidemia Urinary yeast infection Acute metabolic encephalopathy improved but later had anoxic brain injury post cardiac arrest Acute hypercarbic respiratory failure Paroxysmal atrial fibrillation GERD COMPLICATIONS/CHIEF COMPLAINT: Acute Renal Failure,Hyponatremia,Neck Infection.. 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 HOSPITAL COURSE: He was admitted for trach and PEG infection with noted hyponatremia and MARK on CKD. His course was c/b hemoptysis with mucus plugging requiring pulmonology consultation for emergent bronchoscopy for that noted blood and clots as well as irregular mass density of R main bronchus. He also had progression of renal failure to ESRD and he was eventually transitioned to HD on 04/08 after permacath placement on 04/07 after infection was well controlled and there was no evidence of bacteremia. There was also much discussion to get radiation to the drop met noted on bronchoscopy for the squamous cell carcinoma but he was unable to tolerate radiation treatment on trial by Dr. Pritchett, and therefore it was deferred. The team had multiple [facility] discussion and updates with the patient and his family given his critical illness and they expressed desire to continue full internventions. He completed a 10d course of antibiotics for MRSA and CRE enterbacter that grew on trach cultures. He otherwise continued to have secretions that required frequent suctioning and N-acetylcysteine and other supportive neb treatments and on 04/16 at 12.15pm an DAIRY FARMER was called and shortly after a maxcart was called for Mr. Carcamo. Prior to that event he had HD that morning and on return nursing reported him having called for suctioning and on return to suction him he was cyanotic began suctioning with scant amount that was plugging and thick and before long he was unresponsive and had lost his pulse. He had CPR from 1220 to 1232, with 4 round of epi and 1 amp of bicarb aft er which we had return of ROSC with sustained pulse with labile variable SVTs with eventual return to NSR. 12 lead AKG showed NSR with RBBB, precordial TWI that were previous noted and TWI in aVF but otherwise no ST segment depression or elevations. He was transferred to the ICU and placed on full supportive therapies with antibiotics, fluids and pressors. 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 He 2/2 likely to mucus plugging with acute on chronic hypoxemic respiratory arrest and eventual cardiac arrest at 3.20pm on 04/19/2021. His hospital course by issue was otherwise as below: #RLL PNA -/p 10days linezolid, cefepime -Blood cx (03/30) negative -Bronchial washing cx + MRSA, +Enterobacter cloacae CRE #PEG site infxn -s/p 10days linezolid, cefepime #PEG tube leakage w/ c/f dislodgement after patient pulled it overnight -consulted Dr. 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 Ayala 11/2020) - Based on documentation pathology positive for moderately differentiated SCC with positive margins - Patient had refused systemic chemotherapy - Pt had a cuffed trach - Patient has not yet begun radiation therapy. [facility] was consulted and attempted to plan for radiation but he did not tolerating laying supine for therapy. Was never begun. #Non-small cell lung CA in RUL #MARK on CKD V now ESRD. 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 ALLERGIES: Please see below. PHYSICAL EXAMINATION ON DISCHARGE: NOT PRESENT AT [facility] LABORATORY DATA: Please see below. IMAGING: Renal US 03/20: Normal urinary tract sonography. CXR 03/21: 1. COPD with some bibasilar patchy infiltrates atelectasis, above the diaphragm on the right and medially in the retrocardiac zone on the left. Bilateral effusions noted. 2. No gross cardiomegaly or dolly edema. Prominence of pulmonary arteries centrally suggest pulmonary artery hypertension, likely on the basis of COPD. 3. New tracheostomy tube since the previous CT in August. Right lung main bronchus, bronchoscopic biopsy: Mainly degenerated inflammatory debris/acute inflammatory cells and entrapped small cluster of highly atypical squamous cells is noted, suspicious for non- small cell carcinoma. Immunostains for TTF-1, P40 and CK7 were performed. The small atypical cluster is positive for P40(squamous cell stain), and negative for TTF-1 but CK7 is non-contributory as the small cluster disappears. CXR 03/24: New infiltrate suspected in the right base consistent with pneumonia. Increased markings in the right apex are also noted. Borderline heart size and vascular congestion.. CXR 03/24: Left subclavian catheter in place. No evidence of pneumothorax. Right upper lobe infiltrate. Question right lower lobe. CXR 03/26: Right base markings appear to be improved. Right upper lobe infiltrate persists. Tracheostomy tube in place. CXR 03/28/21: No new infiltrate. Tracheostomy tube remains in place PROGNOSIS: ACTIVITY: DIET: DISCHARGE PLAN: DISPOSITION: DISCHARGE INSTRUCTIONS: ITEMS TO FOLLOWUP ON ON OUTPATIENT: DISCHARGE CONDITION: TIME SPENT ON DISCHARGE: 78 minutes. Vital Signs/I&Os Vital Signs Date Time Temp Pulse Resp B/P (MAP) Pulse Ox O2 Delivery O2 Flow Rate FiO2 04/19/21 12:48 10.0 40 04/17/21 04:00 97.8 83 16 97/62 (74) 100 Trach Collar I&O- Last 24 Hours up to 6 AM 04/19/21 06:00 Intake Total 0 ml Balance 0 ml Microbiology Microbiology 04/12/21 Blood Culture - Final, Complete NO GROWTH AFTER 5 DAYS 04/12/21 Blood Culture - Final, Complete NO GROWTH AFTER 5 DAYS Discharge Medications Scheduled Allopurinol (Allopurinol) 100 Mg Tablet, 200 MG GT DAILY, (Reported) Amlodipine Besylate (Amlodipine Besylate) 5 Mg Tablet, 5 MG GT DAILY, (Reported) Apixaban (Eliquis) 5 Mg Tablet, 5 MG GT BID, (Reported) Atorvastatin Calcium (Atorvastatin Calcium) 20 Mg Tablet, 20 MG GT DAILY, (Reported) Famotidine (Famotidine) 20 Mg Tablet, 20 MG GT BID, (Reported) Folic Acid (Folic Acid) 1 Mg Tablet, 1 MG GT DAILY, (Reported) Insulin Detemir (Levemir Flextouch) 100 Unit/1 Ml Insuln.pen, 30 UNIT SC DAILY, (Reported) Insulin Lispro (Humalog Kwikpen U-100) 100 Unit/1 Ml Insuln.pen, 1 DOSE SC AC, (Reported) PER SLIDING SCALE Nystatin (Nystatin) 15 Gm Oint...g., 1 APLCT TOP QID, (Reported) APPLY TO FOLDS Sotalol HCl (Sotalol) 120 Mg Tablet, 120 MG GT BID, (Reported) Torsemide (Torsemide) 20 Mg Tablet, 20 MG GT BID, (Reported) Scheduled PRN Albuterol Sulf (Albuterol Sulfate) 2.5 Mg/3 Ml Vial.neb, 2.5 MG INH Q6H PRN for SOB/WHEEZING, (Reported) Allergies Coded Allergies: Penicillins (Verified Allergy, Severe, 02/26/21) Sulfa (Sulfonamide Antibiotics) (Verified Allergy, Mild, 02/26/21) Itching FAREED CARTER MD Apr 19, 2021 18:07
== END 2021-04-19 15:20 | disposition expired | DRG 177 ==
LOC: M ED 10:42 → EDBD 10:42 → M ED INP 14:20 → ENRESERV 23:50 → M PCU 03-21 01:30 → M MSPAV 03-23 14:00 → M ICU 03-24 10:56 → M PCU 03-27 16:30 → M ICU 03-28 17:33 → M PCU 03-31 09:27 → M MSPAV 04-05 16:58 → M ICU 04-16 12:56 → M MS5PR 04-17 14:20
PROVIDERS: ADMIT Family Medicine; ATTEND Internal Medicine
PROC: 02HV33Z Insertion of Infusion Device into Superior Vena Cava, Percutaneous Approach (ICD-10-PCS; 2021-03-24)
PROC: 0BJ08ZZ Inspection of Tracheobronchial Tree, Via Natural or Artificial Opening Endoscopic (ICD-10-PCS; principal; 2021-03-25)
PROC: 0BB Respiratory System, Excision (ICD-10-PCS; 2021-03-25)
PROC: 0BD38ZX Extraction of Right Main Bronchus, Via Natural or Artificial Opening Endoscopic, Diagnostic (ICD-10-PCS; 2021-03-25)
PROC: 0JH63XZ Insertion of Tunneled Vascular Access Device into Chest Subcutaneous Tissue and Fascia, Percutaneous Approach (ICD-10-PCS; 2021-04-07)
DX: J15.212 Pneumonia due to Methicillin resistant Staphylococcus aureus (principal); J96.01 Acute respiratory failure with hypoxia; N18.6 End stage renal disease; G93.41 Metabolic encephalopathy; J96.02 Acute respiratory failure with hypercapnia; J95.02 Infection of tracheostomy stoma; E87.1 Hypo-osmolality and hyponatremia; R04.2 Hemoptysis; C78.01 Secondary malignant neoplasm of right lung; B37.41 Candidal cystitis and urethritis; N39.0 Urinary tract infection, site not specified; K94.22 Gastrostomy infection; E11.9 Type 2 diabetes mellitus without complications; I10 Essential (primary) hypertension; K21.9 Gastro-esophageal reflux disease without esophagitis; I48.0 Paroxysmal atrial fibrillation; M10.9 Gout, unspecified; Z87.891 Personal history of nicotine dependence; E78.5 Hyperlipidemia, unspecified; Z79.4 Long term (current) use of insulin; Z92.3 Personal history of irradiation; Z79.899 Other long term (current) drug therapy; Z88.2 Allergy status to sulfonamides; Z88.0 Allergy status to penicillin

== ENCOUNTER 2021-04-11 12:00 | Outpatient (RCR) | payer MEDICARE ==
[~2021-04-11 12:00] MED LIST changes: +ALBU83IN INH; +AMLO1TAB24 GT; +FOLI1TAB11 GT; +FOLI1TAB11 PO; +HUMA100I5 SC; +NYST10OI TOP; +REPA1TAB6 PO
== END 2021-04-19 ==
LOC: M ONCR 12:00
PROVIDERS: ATTEND General Practice
DX: C32.8 Malignant neoplasm of overlapping sites of larynx (principal); N17.9 Acute kidney failure, unspecified; D64.9 Anemia, unspecified; J18.1 Lobar pneumonia, unspecified organism; B37.49 Other urogenital candidiasis